=== PATIENT | female | born 1950 | race African-American/Black ===

== ENCOUNTER 2017-01-05 16:27 | Inpatient (IN) | payer OTHER ==
--- NOTE | 2017-01-05 17:15 | PDOC ---
History of Present Illness - General History Source: Patient Exam Limitations: No Limitations - History of Present Illness Initial Comments: The patient is a 66 yo F with a past medical history significant for CVA/TIA 3 years ago, DM, HTN, HLD, anemia and constipation who presents from [facility] with bilateral pedal edema as well as abnormal blood work today of 6.6 and 20 HGB and Hematocrit and a sodium of 129. Patient was transferred for possible blood transfusion by Dr. Oswald. As per patients power of dry drug worker Minister Rao, patient cant put her shoes on secondary to pedal edema. As per Information Systems Operator Jalen, patient also suffers from persistent vomiting and patient has been unable to walk for the past 2 years. Information Systems Operator Jalen also endorses decreasing cognitive function. Power of dry drug worker: Airam Rao <Kristina Beltrán - Last Filed: 01/05/17 18:52> <Daria Kate - Last Filed: 01/05/17 20:31> - General Chief Complaint: Revisit, Lab Variance Stated Complaint: HYPOTENSION Time Seen by Provider: 01/05/17 16:37 Past History <Kristina Beltrán - Last Filed: 01/05/17 18:52> - Past Medical History CVA: Yes Dementia: Yes Diabetes: Yes HTN: Yes Psychiatric Problems: Yes (depression) - Immunization History Immunization Up to Date: Yes - Psycho/Social/Smoking Cessation Hx Anxiety: No Suicidal Ideation: No Smoking History: Never smoked Have you smoked in the past 12 months: No Information on smoking cessation initiated: No Hx Alcohol Use: No Drug/Substance Use Hx: No Substance Use Type: None <Daria Kate - Last Filed: 01/05/17 20:31> - Past Medical History Allergies/Adverse Reactions: Allergies Allergy/AdvReac Type Severity Reaction Status Date / Time No Known Allergies Allergy Verified 09/19/15 15:08 Home Medications: Ambulatory Orders Amlodipine Besylate 5 mg PO DAILY 09/20/15 Ergocalciferol (Vitamin D2) [Vitamin D2] 50,000 unit PO WEEKLY 09/20/15 Ferrous Gluconate [Fergon -] 324 mg PO TID 09/20/15 [place]-3 Fatty Acids [[place]-3] 1,000 mg PO QID 09/20/15 Docusate Sodium [Colace -] 100 mg PO BID #60 capsule 09/22/15 Polyethylene Glycol 3350 [Miralax (For Daily Use) -] 17 gm PO DAILY PRN #1 bottle 09/22/15 Ascorbic Acid [Vitamin C] 500 mg PO DAILY 01/05/17 Atorvastatin Ca [Lipitor] 40 mg PO HS 01/05/17 Lisinopril [Zestril] 20 mg PO DAILY 01/05/17 Metformin HCl 500 mg PO BID 01/05/17 Mirtazapine [Remeron -] 15 mg PO HS 01/05/17 Review of Systems - Review of Systems Able to Perform ROS?: Yes Comments:: CONSTITUTIONAL: Absent: fever, chills, diaphoresis, generalized weakness, malaise, loss of appetite HEENT: Absent: rhinorrhea, nasal congestion, throat pain, throat swelling, difficulty swallowing, mouth swelling, ear pain, eye pain, visual Changes CARDIOVASCULAR: Absent: chest pain, syncope, palpitations, irregular heart rate, lightheadedness , peripheral edema RESPIRATORY: Absent: cough, shortness of breath, dyspnea with exertion, orthopnea, wheezing, stridor, hemoptysis GASTROINTESTINAL: +chronic Hx of vomiting Absent: abdominal pain, abdominal distension, diarrhea, constipation, melena, hematochezia GENITOURINARY: Absent: dysuria, frequency, urgency, hesitancy, hematuria, flank pain, genital pain MUSCULOSKELETAL: +bilateral pedal edema Absent: myalgia, arthralgia SKIN: Absent: rash, itching, pallor NEUROLOGIC: Absent: headache, focal weakness or paresthesia, dizziness, unsteady gait, seizure, mental status changes, bladder or bowel incontinence PSYCHIATRIC: Absent: anxiety, depression, suicidal or homicidal ideation, hallucinations <DougKristina cui - Last Filed: 01/05/17 18:52> *Physical Exam - Vital Signs Last Vital Signs Temp Pulse Resp BP Pulse Ox 97.3 F L 67 18 106/65 100 01/05/17 16:33 01/05/17 16:33 01/05/17 16:33 01/05/17 16:33 01/05/17 16:33 - Physical Exam Comments: GENERAL: Well developed, well nourished. Awake and alert. No acute distress. HEENT: Normocephalic, atraumatic. PERRLA, EOMI. No conjunctival pallor. icteric sclera. Moist mucous membranes. Oropharynx is clear. NECK: Supple. Full ROM. + JVD. Carotid pulses 2+ and symmetric, without bruits. No thyromegaly. No lymphadenopathy. CARDIOVASCULAR: Regular rate and rhythm. No murmurs, rubs, or gallops. Distal pulses are 2+ and symmetric. PULMONARY: No evidence of respiratory distress. Lungs clear to auscultation bilaterally. No wheezing, rales or rhonchi. ABDOMINAL: Soft. Non-tender. Slightly distended. No rebound or guarding. No organomegaly. Normoactive bowel sounds. MUSCULOSKELETAL Normal range of motion at all joints. No bony deformities or tenderness. No CVA tenderness. EXTREMITIES: No cyanosis. No clubbing. Bilateral pedal edema. No calf tenderness. SKIN: Warm and dry. Normal capillary refill. No rashes. No jaundice. NEUROLOGICAL: No gross focal neurological deficits. PSYCHIATRIC: Cooperative. Good eye contact. Appropriate mood and affect <Kristina Beltrán - Last Filed: 01/05/17 18:52> - Vital Signs Last Vital Signs Temp Pulse Resp BP Pulse Ox 97.3 F L 67 18 106/65 100 01/05/17 16:33 01/05/17 16:33 01/05/17 16:33 01/05/17 16:33 01/05/17 16:33 <Daria Kate - Last Filed: 01/05/17 20:31> Heart Score/ECG Review - [place] Comment: ECG: Alert and conversing but a poor historian. sinus rhythm w 1st degree AV block @ 68 bpm. Cannot rule out anterior infarct, age undetermined. MA interval 222 <Kristina Beltrán - Last Filed: 01/05/17 18:52> - History History: Slightly suspicious - Electrocardiogram EKG: Non specific repolarization disturbance - Age Age: >/= 65 - Risk Factors Based on the list above the patient has:: 1-2 risk factors - Troponin Troponin: </= normal limit - Score Heart Score - Total: 4 <Daria Kate - Last Filed: 01/05/17 20:31> ED Treatment Course - LABORATORY CBC & Chemistry Diagram: 01/05/17 17:32 01/05/17 17:32 <Kristina Beltrán - Last Filed: 01/05/17 18:52> - LABORATORY CBC & Chemistry Diagram: 01/05/17 17:32 01/05/17 17:32 <Daria Kate - Last Filed: 01/05/17 20:31> Medical Decision Making - Medical Decision Making Paged Dr. Mackey @ 18:47. Awaiting call back. Dr. Mackey called back @ 18:53 and case was discussed. <Kristina Beltrán - Last Filed: 01/05/17 18:52> *DC/Admit/Observation/Transfer - Attestations Scribe Attestion: Documentation prepared by Kristina Beltrán, acting as biomedical engineer for Daria Kate MD/DO. <Kristina Beltrán - Last Filed: 01/05/17 18:52> - Discharge Dispostion Admit: Yes <Daria Kate - Last Filed: 01/05/17 20:31> Diagnosis at time of Disposition: Anemia Qualifiers: Anemia type: other cause Other causes of anemia: other cause, not classified Qualified Code(s): D64.89 - Other specified anemias GI bleed Qualifiers: GI bleed type/associated pathology: unspecified gastrointestinal hemorrhage type Qualified Code(s): K92.2 - Gastrointestinal hemorrhage, unspecified
[2017-01-05 17:50] LABS: BASOPHIL 0.3 % (0-2.0); EOSINOPHIL 3.3 % (0-4.5); MCH 25.5 pg (25.7-33.7); MCHC 32.6 g/dl (32.0-36.0); MEAN CELL VOLUME 78.1 fl (80-96); MEAN PLT VOLUME 7.8 fl (7.5-11.1); NEUTROPHILS 70.3 % (42.8-82.8); PLATELET COUNT 259 K/MM3 (134-434); RDW 19.3 % (11.6-15.6); WHITE BLOOD COUNT 5.1 K/mm3 (4.0-10.0)
[2017-01-05 18:05] LABS: INR 1.21 (0.82-1.09); PROTHROMBIN TIME (PATIENT) 13.4 SEC (9.98-11.88)
[2017-01-05 18:19] LABS: FERRITIN 13.147 ng/ml (6.9-282.5); TROPONIN I < 0.02 ng/ml (0.00-0.05)
[2017-01-05 18:28] LABS: ALBUMIN 3.1 g/dl (3.4-5.0); ALK PHOS 65 U/L (45-117); ANION GAP 11 (8-16); BILIRUBIN,TOTAL 0.3 mg/dL (0.2-1.0); CALCIUM 8.9 mg/dL (8.5-10.1); CO2 24 mmol/L (21-32); CREATININE 0.6 mg/dL (0.55-1.02); GLUCOSE,RANDOM 78 mg/dL (74-106); SGOT/AST 20 U/L (15-37); SGPT/ALT 19 U/L (12-78); TOT PROT 6.3 g/dl (6.4-8.2)
[2017-01-05] MEDS ORDERED: PANTOPRAZOLE SODIUM 40 MG in SODIUM CHLORIDE 100 ML IVPB ONE (19:15)
[2017-01-05] MEDS ORDERED: PANTOPRAZOLE SODIUM 40 MG VIAL ONE (20:57)
[2017-01-05] MEDS ORDERED: ACETAMINOPHEN 325 MG TABLET (FP) PO PRN (22:39)
[2017-01-05] MEDS ORDERED: FUROSEMIDE 40 MG/4 ML INJECTABLE VIAL IVPB ONE (22:39)
[2017-01-06 01:04] VITALS: BMI 23.2
[2017-01-06 03:16] LABS: FERRITIN 13.393 ng/ml (6.9-282.5)
[2017-01-06] MEDS: INSULIN SLIDING SCALE (NOVOLOG) 1 VIAL SQ SCH ×4 (06:47→22:03)
[2017-01-06] MEDS ORDERED: INSULIN (NOVOLOG) ASPART 100 UNITS/ML 10ML VIAL ONE (06:49)
[2017-01-06] MEDS ORDERED: PT OWN MED DRAWER 7, Y5N ONE (06:49)
--- NOTE | 2017-01-06 08:14 | HP ---
Admitting History and Physical - Admission History of Present Illness: 6 yo F with a past medical history significant for CVA/TIA 3 years ago, DM, HTN , HLD, anemia and constipation who presents from [facility] with bilateral pedal edema as well as abnormal blood work today of 6.6 and 20 HGB and Hematocrit and a sodium of 129. Patient was transferred for possible blood transfusion by Dr. Oswald. As per patients power of salesperson art objects Food Demonstratoryohan Rao, patient cant put her shoes on secondary to pedal edema. As per Food Demonstrator Jalen , patient also suffers from persistent vomiting and patient has been unable to walk for the past 2 years. Food Demonstrator Jalen also endorses decreasing cognitive function. 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: CVA, TIA Cardiovascular: Yes: HTN, Hyperlipdemia ...: No Endocrine: Yes: Diabetes Mellitus - Past Surgical History Past Surgical History: Yes: None - Advance Directives Advance Directives: Yes: Health Care Proxy - Smoking History Smoking history: Never smoked Have you smoked in the past 12 months: No - Alcohol/Substance Use Hx Alcohol Use: No History of Substance Use: reports: None - Social History ADL: Independent History of Recent Travel: No Home Medications - Allergies Allergies/Adverse Reactions: Allergies Allergy/AdvReac Type Severity Reaction Status Date / Time No Known Allergies Allergy Verified 09/19/15 15:08 - Home Medications Home Medications: Ambulatory Orders Amlodipine Besylate 5 mg PO DAILY 09/20/15 Ergocalciferol (Vitamin D2) [Vitamin D2] 50,000 unit PO WEEKLY 09/20/15 Ferrous Gluconate [Fergon -] 324 mg PO TID 09/20/15 [place]-3 Fatty Acids [[place]-3] 1,000 mg PO QID 09/20/15 Docusate Sodium [Colace -] 100 mg PO BID #60 capsule 09/22/15 Polyethylene Glycol 3350 [Miralax (For Daily Use) -] 17 gm PO DAILY PRN #1 bottle 09/22/15 Ascorbic Acid [Vitamin C] 500 mg PO DAILY 01/05/17 Atorvastatin Ca [Lipitor] 40 mg PO HS 01/05/17 Lisinopril [Zestril] 20 mg PO DAILY 01/05/17 Metformin HCl 500 mg PO BID 01/05/17 Mirtazapine [Remeron -] 15 mg PO HS 01/05/17 Review of Systems - Review of Systems Constitutional: reports: Weakness Cardiovascular: denies: Chest Pain Respiratory: denies: SOB Gastrointestinal: reports: Vomiting. denies: Abdominal Pain, Constipation, Diarrhea Genitourinary: denies: Burning, Dysuria, Flank Pain Musculoskeletal: reports: Muscle Weakness. denies: Back Pain Neurological: reports: Change in LOC, Incoordination, Unsteady Gait, Weakness Physical Examination Vital Signs: Vital Signs Temperature 98.9 F 01/06/17 06:00 Pulse Rate 56 L 01/06/17 06:00 Respiratory Rate 20 01/06/17 06:00 Blood Pressure 136/65 01/06/17 06:00 O2 Sat by Pulse Oximetry (%) 99 01/05/17 21:00 Cardiovascular: Yes: Murmur, S1, S2 Respiratory: Yes: Regular, CTA Bilaterally. No: Wheezes Gastrointestinal: Yes: Normal Bowel Sounds, Soft. No: Tenderness Renal/: Yes: Bladder Distention (--vs mass--?fibroid) Extremities: Yes: Other (weakness of both le) Edema: Yes Neurological: Yes: Alert, Unsteady Gait, Weakness Problem List - Problems (1) Anemia Assessment/Plan: S/P PRBC MONITOR LABS PPI GI CONSULT Code(s): D64.9 - ANEMIA, UNSPECIFIED Qualifiers: Anemia type: other cause Other causes of anemia: other cause, not classified Qualified Code(s): D64.89 - Other specified anemias (2) GI bleed Assessment/Plan: S/P PRBC MONITOR LABS PPI GI CONSULT Code(s): K92.2 - GASTROINTESTINAL HEMORRHAGE, UNSPECIFIED Qualifiers: GI bleed type/associated pathology: unspecified gastrointestinal hemorrhage type Qualified Code(s): K92.2 - Gastrointestinal hemorrhage, unspecified (3) HTN (hypertension) Assessment/Plan: MONITOR Code(s): I10 - ESSENTIAL (PRIMARY) HYPERTENSION (4) Bradycardia Assessment/Plan: ON TEL MONITOR EKG TSH CARDIO ECHO Code(s): R00.1 - BRADYCARDIA, UNSPECIFIED (5) Change in mental status Assessment/Plan: CT OF HEAD NEURO CONSULT CULTURES AWAIT AM LABS Code(s): R41.82 - ALTERED MENTAL STATUS, UNSPECIFIED (6) Gait abnormality Assessment/Plan: PT EVAL Code(s): R26.9 - UNSPECIFIED ABNORMALITIES OF GAIT AND MOBILITY
[2017-01-06] MEDS ORDERED: amLODIPine BESYLATE 5 MG TABLET (FP) PO SCH (10:00)
[2017-01-06] MEDS ORDERED: FUROSEMIDE 40 MG/4 ML INJECTABLE VIAL IVPB ONE (10:00)
[2017-01-06] MEDS ORDERED: PANTOPRAZOLE SODIUM 80 MG in SODIUM CHLORIDE 100 ML IVPB SCH (10:00)
[2017-01-06 10:31] LABS: BASOPHIL 0.4 % (0-2.0); EOSINOPHIL 3.2 % (0-4.5); MCH 27.5 pg (25.7-33.7); MCHC 33.6 g/dl (32.0-36.0); MEAN CELL VOLUME 82.1 fl (80-96); MEAN PLT VOLUME 7.5 fl (7.5-11.1); NEUTROPHILS 71.5 % (42.8-82.8); PLATELET COUNT 224 K/MM3 (134-434); RDW 18.4 % (11.6-15.6); WHITE BLOOD COUNT 6.2 K/mm3 (4.0-10.0)
[2017-01-06 10:53] LABS: ALBUMIN 3.2 g/dl (3.4-5.0); ANION GAP 11 (8-16); CALCIUM 8.7 mg/dL (8.5-10.1); CO2 25 mmol/L (21-32); CREATININE 0.6 mg/dL (0.55-1.02); GLUCOSE,RANDOM 55 mg/dL (74-106); SGOT/AST 20 U/L (15-37); SGPT/ALT 19 U/L (12-78); TOT PROT 6.7 g/dl (6.4-8.2)
[2017-01-06 11:02] LABS: ALK PHOS 67 U/L (45-117); THYROID STIMULATING HORMONE 1.09 uIU/ml (0.358-3.74); TROPONIN I < 0.02 ng/ml (0.00-0.05)
--- NOTE | 2017-01-06 11:55 | CON.NEURO ---
Consult - History of Present Illness History of Present Illness: 66 yo F with a past medical history significant for CVA/TIA 3 years ago, DM, HTN , HLD, anemia and constipation who presents from [facility] with bilateral pedal edema as well as anemia, 6.6 and 20 HGB and Hematocrit and a sodium of 129. found to have BL DVT . pt poor HX , slurred speech and feels weakness R side x 5 days. unknown prior deficits from her prior stroke. 01/06/17 Status: [place] [address] Unit Number: [id number] EXAM#: TYPE/EXAM: RESULT: [id number] CT/HEAD CT WITHOUT CONTRAST CT scan of the brain c-. Change in mental status. Comparison study September 19, 2015. Findings. Serial axial images of the brain were obtained from foramen magnum to the cranial vertex without intravenous contrast. The study was supplemented with computer-generated coronal and sagittal reconstruction images. [place] image was reviewed. There is no evidence of acute subarachnoid hemorrhage, acute intra-axial or extra-axial fluid collection consistent with subdural or epidural hematoma. No mass effect, midline shift, acute territorial ischemic changes, herniation or edema is present. Normal coon matter white matter differentiation. Generalized loss of volume of the brain parenchyma. The CSF spaces unchanged from prior study. No hydrocephalus is seen. Intracranial vascular calcifications are noted. Empty sella turcica. Examination of the bone windows show no fracture. The visualized paranasal sinuses and mastoid air cells are clear. Symmetrical ocular globes. Unremarkable retro-orbital soft tissues. Impression. No evidence of acute intracranial hemorrhage, edema, midline shift, mass effect, or skull fracture. No CT evidence of acute territorial infarction. 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 Cardio/Vascular: Yes: HTN, Hyperlipdemia ...: No Endocrine: Yes: Diabetes Mellitus - Past Surgical History Past Surgical History: Yes: None - Alcohol/Substance Use Hx Alcohol Use: No History of Substance Use: reports: None - Smoking History Smoking history: Never smoked Have you smoked in the past 12 months: No - Social History ADL: Independent History of Recent Travel: No Home Medications - Allergies Allergies/Adverse Reactions: Allergies Allergy/AdvReac Type Severity Reaction Status Date / Time No Known Allergies Allergy Verified 09/19/15 15:08 - Home Medications Home Medications: Ambulatory Orders Amlodipine Besylate 5 mg PO DAILY 09/20/15 Ergocalciferol (Vitamin D2) [Vitamin D2] 50,000 unit PO WEEKLY 09/20/15 Ferrous Gluconate [Fergon -] 324 mg PO TID 09/20/15 [place]-3 Fatty Acids [[place]-3] 1,000 mg PO QID 09/20/15 Docusate Sodium [Colace -] 100 mg PO BID #60 capsule 09/22/15 Polyethylene Glycol 3350 [Miralax (For Daily Use) -] 17 gm PO DAILY PRN #1 bottle 09/22/15 Ascorbic Acid [Vitamin C] 500 mg PO DAILY 01/05/17 Atorvastatin Ca [Lipitor] 40 mg PO HS 01/05/17 Lisinopril [Zestril] 20 mg PO DAILY 01/05/17 Metformin HCl 500 mg PO BID 01/05/17 Mirtazapine [Remeron -] 15 mg PO HS 01/05/17 Physical Exam-Neuro Vital Signs: Vital Signs Temperature 95.9 F L 01/06/17 08:07 Pulse Rate 56 L 01/06/17 09:44 Respiratory Rate 18 01/06/17 09:44 Blood Pressure 122/2 01/06/17 09:44 O2 Sat by Pulse Oximetry (%) 100 01/06/17 09:00 Constitutional: Yes: Pallor Edema: LLE: 2+, RLE: 2+ Labs: CBC, BMP 01/06/17 09:48 01/06/17 09:48 INR, PTT INR 1.21 (0.82-1.09) H 01/05/17 17:32 - Neuro Exam Level Of Consciousness: Yes: Alert (awake, though slow to respond, EOMI, slight R facial , dysarthric, no clear aphasia, weakness RUE-with limited effeort, weakness in LE, barely able to raise legs, distally L 5/5 and R 4/5 TA , reflexes inc on R, giait not tested; ) NIH Stroke Scale - Total Score NIH Stroke Scale Score: 0 Imaging - Results Cat Scan: Report Reviewed, Image Reviewed Assessment/Plan 66 yo F with a past medical history significant for CVA/TIA 3 years ago, DM, HTN , HLD, anemia and constipation who presents from [facility] with bilateral pedal edema as well as anemia, 6.6 and 20 HGB and Hematocrit and a sodium of 129. found to have BL DVT . pt poor HX , slurred speech and feels weakness R side x 5 days. unknown prior deficits from her prior stroke. r/o new stroke event ( left subcortical) check MRI BRAIN DVT- low platelets, ? if candidate for AC ; Dr Laird [phone]
[2017-01-06] MEDS: D5-1/2NS+20 MEQ KCL - 1,000 ML IV SCH (13:49)
--- NOTE | 2017-01-06 13:56 | CON.CARD ---
Consult Consult Specialty:: cardiology Referred by:: Key Reason for Consultation:: Bradycardia and leg edema - History of Present Illness Chief Complaint: Leg edema History of Present Illness: The patient is a 66-year-old female, retirement resident, nonambulatory, history of diabetes, hypertension, hyperlipidemia, stroke, now presenting with nausea and vomiting, marked anemia, and leg edema. The patient is status post blood transfusions. She is currently comfortable and symptom free. GI consultation is pending. 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 Cardio/Vascular: Yes: Deep Vein Thrombosis, HTN, Hyperlipdemia ...: No Heme/Onc: Yes: Anemia Endocrine: Yes: Diabetes Mellitus - Past Surgical History Past Surgical History: Yes: None - Alcohol/Substance Use Hx Alcohol Use: No History of Substance Use: reports: None - Smoking History Smoking history: Never smoked Have you smoked in the past 12 months: No - Social History ADL: Independent History of Recent Travel: No Home Medications - Allergies Allergies/Adverse Reactions: Allergies Allergy/AdvReac Type Severity Reaction Status Date / Time No Known Allergies Allergy Verified 09/19/15 15:08 - Home Medications Home Medications: Ambulatory Orders Amlodipine Besylate 5 mg PO DAILY 09/20/15 Ergocalciferol (Vitamin D2) [Vitamin D2] 50,000 unit PO WEEKLY 09/20/15 Ferrous Gluconate [Fergon -] 324 mg PO TID 09/20/15 [place]-3 Fatty Acids [[place]-3] 1,000 mg PO QID 09/20/15 Docusate Sodium [Colace -] 100 mg PO BID #60 capsule 09/22/15 Polyethylene Glycol 3350 [Miralax (For Daily Use) -] 17 gm PO DAILY PRN #1 bottle 09/22/15 Ascorbic Acid [Vitamin C] 500 mg PO DAILY 01/05/17 Atorvastatin Ca [Lipitor] 40 mg PO HS 01/05/17 Lisinopril [Zestril] 20 mg PO DAILY 01/05/17 Metformin HCl 500 mg PO BID 01/05/17 Mirtazapine [Remeron -] 15 mg PO HS 01/05/17 Review of Systems - Review of Systems Constitutional: reports: Malaise Eyes: reports: No Symptoms HENT: reports: No Symptoms Neck: reports: No Symptoms Cardiovascular: reports: No Symptoms, Edema Respiratory: reports: No Symptoms Gastrointestinal: reports: Vomiting Genitourinary: reports: No Symptoms Breasts: reports: No Symptoms Reported Musculoskeletal: reports: No Symptoms Integumentary: reports: No Symptoms Neurological: reports: No Symptoms Endocrine: reports: No Symptoms Hematology/Lymphatic: reports: No Symptoms Psychiatric: reports: No Symptoms - Risk Factors Known Risk Factors: Yes: Diabetes Mellitus, Hypercholesterolemia, Hypertension Vital Signs: Vital Signs Temperature 95.0 F L 01/06/17 13:15 Pulse Rate 73 01/06/17 13:15 Respiratory Rate 18 01/06/17 13:15 Blood Pressure 138/79 01/06/17 13:15 O2 Sat by Pulse Oximetry (%) 100 01/06/17 09:00 Constitutional: Yes: Well Nourished, No Distress Eyes: Yes: WNL HENT: Yes: WNL Neck: Yes: WNL Respiratory: Yes: WNL Gastrointestinal: Yes: WNL Renal/: Yes: WNL Cardiovascular: Yes: Regular Rate and Rhythm, Bradycardia JVD: No Carotid Bruit: No PMI: Non-Displaced Heart Sounds: Yes: S1, S2 Murmur: Yes: Systolic Murmur, Grade 2 Musculoskeletal: Yes: WNL Extremities: Yes: Other (Bilateral lower extremity edema) Edema: Yes (bilateral lower extremity) Edema: LLE: 1+, RLE: 1+ Peripheral Pulses WNL: Yes Integumentary: Yes: WNL Neurological: Yes: Alert, Weakness Psychiatric: Yes: WNL - Other Data Labs, Other Data: CBC, BMP 01/06/17 09:48 01/06/17 09:48 INR, PTT INR 1.21 (0.82-1.09) H 01/05/17 17:32 Troponin, BNP 01/06/17 09:48 Troponin I < 0.02 Troponin, BNP 01/06/17 09:48 Troponin I < 0.02 Assessment/Plan 66-year-old female, retirement resident, nonambulatory, history of diabetes, hypertension, hyperlipidemia, stroke, admitted with marked anemia, leg edema, nausea and vomiting. Noted to be bradycardic. The patient is currently status post packed RBCs. She is comfortable in bed. Denied chest pains and shortness of breath. Telemetry showing sinus bradycardia with a prolonged AL interval. No clinically important arrhythmias noted. There is no evidence of ischemia nor acute coronary syndrome. Lower extremity Dopplers revealed bilateral DVTs. GI workup for anemia is pending. If anticoagulation is contraindicated, would consider an IVC filter. There is no need for further cardiac workup nor testing in this setting. The patient is stable and quite comfortable. Please call us PRN.
[2017-01-06] MEDS ORDERED: ACETAMINOPHEN 325 MG TABLET (FP) PO PRN (14:21)
[2017-01-06] MEDS ORDERED: PNEUMOC 13-VAL CONJ-DIP CRM/PF 0.5 ML DISP.SYRIN IM ONE (14:41)
--- NOTE | 2017-01-06 15:08 | PN ---
Progress Note (short form) - Note Progress Note: ID consult dictated imp/reccd 66 year old female admitted with anemia s/p transfusion she is alert but hypothermic she has been [facility] for the last 2 years per patient nonambulatory for 2 years chronic vomiting bilateral pedal edema duplex positive for bilateral DVT now hypothermic hyponatremic requiring warming blanket am cortisol level obtain cultures management of DVT per icu/pmd anemia s/p transfusion ?malignancy Problem List - Problems (1) Hypothermia Code(s): T68.XXXA - HYPOTHERMIA, INITIAL ENCOUNTER (2) Anemia Code(s): D64.9 - ANEMIA, UNSPECIFIED Qualifiers: Anemia type: other cause Other causes of anemia: other cause, not classified Qualified Code(s): D64.89 - Other specified anemias (3) DVT (deep venous thrombosis) Code(s): I82.409 - ACUTE EMBOLISM AND THOMBOS UNSP DEEP VN UNSP LOWER EXTREMITY
--- NOTE | 2017-01-06 15:26 | CONSULT ---
Consultation: REQUESTING PROVIDER: Dr. Mackey CONSULT REQUEST: We have been asked to medically evaluate this patient for hypothermia. HISTORY OF PRESENT ILLNESS: 66 yr old woman [facility] for abnormal lab work (low h/h 6.6/20, Na 129) and LE edema. She has been having non-bloody emesis for the past several weeks, says it happens after every meal, several times weak. has not noticed any weight loss or reflux symptoms prior to emesis. She says she has had the edema for several weeks, has been unable to ambulate for several weeks. Also c/o dry cough and constipation for the past week. denies fevers, chest pain, palpitations, abdominal pain, hematochezia, melena. 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 REVIEW OF SYSTEMS: CONSTITUTIONAL: Absent: fever, chills, diaphoresis, generalized weakness, malaise, loss of appetite, weight change HEENT: Absent: rhinorrhea, nasal congestion, throat pain, throat swelling, difficulty swallowing, mouth swelling, ear pain, eye pain, visual changes CARDIOVASCULAR: Present: peripheral edema Absent: chest pain, syncope, palpitations, irregular heart rate, lightheadedness RESPIRATORY: Present: cough Absent: shortness of breath, dyspnea with exertion, orthopnea, wheezing, stridor , hemoptysis GASTROINTESTINAL: Present:constipation, Absent: abdominal pain, abdominal distension, nausea, vomiting, diarrhea, melena , hematochezia GENITOURINARY: Absent: dysuria, frequency, urgency, hesitancy, hematuria, flank pain, genital pain MUSCULOSKELETAL: Absent: myalgia, arthralgia, joint swelling, back pain, neck pain ENDOCRINE: Present: cold intolerance Absent: unexplained weight gain, unexplained weight loss, heat intolerance NEUROLOGIC: Absent: headache, dizziness, PHYSICAL EXAMINATION Vital Signs - 24 hr 01/05/17 01/05/17 01/06/17 20:43 21:00 02:39 Temperature 98.3 F 97.7 F 99.0 F Pulse Rate 64 54 L Pulse Rate [ 65 Left] Respiratory 17 18 20 Rate Blood Pressure 104/62 132/69 Blood Pressure 122/87 [Left Arm] O2 Sat by Pulse 99 99 Oximetry (%) 01/06/17 01/06/17 01/06/17 06:00 07:30 08:07 Temperature 98.9 F 95.9 F L Pulse Rate 56 L 41 L 52 L Pulse Rate [ Left] Respiratory 20 18 Rate Blood Pressure 136/65 127/52 Blood Pressure [Left Arm] O2 Sat by Pulse Oximetry (%) 01/06/17 01/06/17 01/06/17 09:00 09:44 13:15 Temperature 95.0 F L Pulse Rate 56 L 73 Pulse Rate [ Left] Respiratory 20 18 18 Rate Blood Pressure 122/72 138/79 Blood Pressure [Left Arm] O2 Sat by Pulse 100 Oximetry (%) GENERAL: Awake, alert, and oriented to person/place/year/month not date or president(wilkins), in no acute distress. HEAD: Normal with no signs of trauma. bitemporal wasting EYES: Pupils constricted, reactive to light, extraocular movements intact, sclera anicteric, conjunctiva clear. EARS, NOSE, THROAT: oropharynx clear without exudates. dry mucous membranes. NECK: supple without lymphadenopathy, JVD, or masses. LUNGS: Breath sounds equal, clear to auscultation bilaterally. No wheezes, and no crackles. No accessory muscle use. HEART: sinus rhythm, bradycardia normal S1 and S2 without murmur ABDOMEN: Soft, nontender, not distended, normoactive bowel sounds, no guarding UPPER EXTREMITIES: 1+ radial pulses, cool, well-perfused. No cyanosis. No clubbing. LOWER EXTREMITIES: weak dp pulses,cool, well-perfused. No calf tenderness. nonpitting edema b/l ankles NEUROLOGICAL: Cranial nerves II-XII intact. slow slurred speech but easily understood, facial symmetry. 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 says that she can't move her lower legs, unable to maintained extension when passively lifted, flaccid b/l le. PSYCHIATRIC: Cooperative. Good eye contact. Appropriate mood and affect. Laboratory Results - last 24 hr 01/06/17 01/06/17 01/06/17 05:47 09:48 09:48 WBC 6.2 RBC 3.73 D Hgb 10.3 L D Hct 30.6 L D MCV 82.1 MCHC 33.6 RDW 18.4 H Plt Count 224 MPV 7.5 Neutrophils % 71.5 Lymphocytes % 19.0 Monocytes % 5.9 Eosinophils % 3.2 Basophils % 0.4 Sodium 131 L Potassium 4.1 Chloride 95 L Carbon Dioxide 25 Anion Gap 11 BUN 12 D Creatinine 0.6 Creat Clearance w eGFR > 60 POC Glucometer 83 Random Glucose 55 L D Lactic Acid Calcium 8.7 Total Bilirubin 1.0 D AST 20 ALT 19 Alkaline Phosphatase 67 Troponin I < 0.02 Total Protein 6.7 Albumin 3.2 L TSH 1.09 D 01/06/17 01/06/17 09:48 09:48 WBC RBC Hgb Hct MCV MCHC RDW Plt Count MPV Neutrophils % Lymphocytes % Monocytes % Eosinophils % Basophils % Sodium Potassium Chloride Carbon Dioxide Anion Gap BUN Creatinine Creat Clearance w eGFR POC Glucometer Random Glucose Lactic Acid 0.9 Calcium Total Bilirubin AST ALT Alkaline Phosphatase Troponin I Total Protein Albumin TSH Cancelled Active Medications Generic Name Dose Route Start Last Admin Trade Name Freq PRN Reason Stop Dose Admin Acetaminophen 650 mg 01/06/17 14:21 Tylenol - PO Q4H PRN FEVER OR PAIN Amlodipine Besylate 5 mg 01/07/17 10:00 Norvasc - PO DAILY MINAL Atorvastatin Calcium 40 mg 01/06/17 22:00 Lipitor - PO HS MINAL Potassium Chloride/Dextrose/Sod Cl 1,000 mls @ 100 mls/hr 01/06/17 09:15 13:49 D5-1/2ns+20 Meq Kcl - IV 100 mls/hr ASDIR MINAL Administration Pantoprazole Sodium 80 mg/ 100 mls @ 10 mls/hr 01/06/17 19:15 Sodium Chloride IVPB Q10H MINAL 8 MG/HR Insulin Aspart 1 vial 01/06/17 16:30 Novolog Vial Sliding Scale - SQ ACHS MINAL Protocol Mirtazapine 15 mg 01/06/17 22:00 Remeron - PO HS MINAL Pneumococcal 13-Valent Conj Vacc 0.5 ml 01/06/17 14:41 Prevnar 13 Syringe - IM 01/06/17 14:42 .ONCE ONE ASSESSMENT/PLAN: 66 yr old woman with hx of CVA, NIDDM, HTN, anemia, constipation referred from [facility] for b/l lower extremity edema, anemia and hyponatremia, transferred to the ICU for hypothermia. GI suspicious for GI bleed, (FOBT +, drop in h/h), for endoscopy tomorrow to r/o ugi bleed since patient has not had any hematochezia or BM NPO and protonix drip repeat labs to trend h/h D5-1/2NS+20meq K IVF @100 consult: dr. pierce Hematological b/l le DVT's - defer heparin drip until acute bleeding r/o on endoscopy iron studies to evaluated normocytic anemia Dr. Andrew and dr. pineda consulted for IVC filter Infectious Disease hypothermia - unclear source of cause, r/o infectious, blood and urine cx sent monitor off abx for now Neurological head ct and mri without acute pathology, unclear baseline, will verify with family pt's baseline no focal neurological deficits consult: dr. indu RIZO taylor placed for urinary retention Renal hyponatremia - unclear etiology, no urine studies prior to IVF, improved on repeat labs Musculoskeletal physiatry evaluation for immobility, likely due to deconditioning Endocrine NIDDM monitor BGM while on d5, no NISS while npo Cardiovascular HTN amlodipine po sinus bradycardia hr 45-55, likely due to patient's inactivity in bed or low h/h , will monitor closely Dispo: We will continue to follow the patient. Thank you for this consultative opportunity. Visit type - Emergency Visit Emergency Visit: No - New Patient This patient is new to me today: Yes Date on this admission: 01/07/17 - Critical Care Critical Care patient: Yes Total Critical Care Time (in minutes): 35 Critical Care Statement: The care of this patient involved high complexity decision making to prevent further life threatening deterioration of the patient 's condition and/or to evalute & treat vital organ system(s) failure or risk of failure.
[2017-01-06 15:33] LABS: URINE APPEARANCE CLEAR; URINE BILIRUBIN NEGATIVE (NEGATIVE); URINE BLOOD NEGATIVE (NEGATIVE); URINE COLOR YELLOW; URINE GLUCOSE (UA) NEGATIVE (NEGATIVE); URINE KETONE NEGATIVE (NEGATIVE); URINE LEUK ESTERASE NEGATIVE (NEGATIVE); URINE NITRITE NEGATIVE (NEGATIVE); URINE PROTEIN NEGATIVE (NEGATIVE); URINE UROBILINOGEN NEGATIVE E.U./dl (0.2-1.0)
--- NOTE | 2017-01-06 18:15 | CONSULT ---
Consult - text type - Consultation Consultation Note: 66 yo F with a past medical history significant for CVA/TIA 3 years ago, DM, HTN , HLD, anemia and constipation who presents from [facility] with bilateral pedal edema as well as anemia, 6.6 and 20 HGB and Hematocrit and a sodium of 129. found to have BL DVT . pt poor HX , slurred speech and feels weakness R side x 5 days. unknown prior deficits from her prior stroke. 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 Cardio/Vascular: Yes: HTN, Hyperlipdemia Endocrine: Yes: Diabetes Mellitus - Past Surgical History Past Surgical History: Yes: None - Smoking History Smoking history: Never smoked - Social History ADL: Independent Home Medications - Allergies Allergies/Adverse Reactions: Allergies Allergy/AdvReac Type Severity Reaction Status Date / Time No Known Allergies Allergy Verified 09/19/15 15:08 - Home Medications Home Medications: Ambulatory Orders Amlodipine Besylate 5 mg PO DAILY 09/20/15 Ergocalciferol (Vitamin D2) [Vitamin D2] 50,000 unit PO WEEKLY 09/20/15 Ferrous Gluconate [Fergon -] 324 mg PO TID 09/20/15 Bim-3 Fatty Acids [Bim-3] 1,000 mg PO QID 09/20/15 Docusate Sodium [Colace -] 100 mg PO BID #60 capsule 09/22/15 Polyethylene Glycol 3350 [Miralax (For Daily Use) -] 17 gm PO DAILY PRN #1 bottle 09/22/15 Ascorbic Acid [Vitamin C] 500 mg PO DAILY 01/05/17 Atorvastatin Ca [Lipitor] 40 mg PO HS 01/05/17 Lisinopril [Zestril] 20 mg PO DAILY 01/05/17 Metformin HCl 500 mg PO BID 01/05/17 Mirtazapine [Remeron -] 15 mg PO HS 01/05/17 Home Medication List Medication Instructions Recorded Confirmed Type Amlodipine Besylate 5 mg PO DAILY 09/20/15 01/05/17 History Ergocalciferol (Vitamin D2) 50,000 unit PO WEEKLY 09/20/15 01/05/17 History [Vitamin D2] Ferrous Gluconate [Fergon -] 324 mg PO TID 09/20/15 01/05/17 History Bim-3 Fatty Acids [Bim-3] 1,000 mg PO QID 09/20/15 01/05/17 History Ascorbic Acid [Vitamin C] 500 mg PO DAILY 01/05/17 01/05/17 History Atorvastatin Ca [Lipitor] 40 mg PO HS 01/05/17 01/05/17 History Lisinopril [Zestril] 20 mg PO DAILY 01/05/17 01/05/17 History Metformin HCl 500 mg PO BID 01/05/17 01/05/17 History Mirtazapine [Remeron -] 15 mg PO HS 01/05/17 01/05/17 History Active Medications Generic Name Dose Route Start Last Admin Trade Name Freq PRN Reason Stop Dose Admin Acetaminophen 650 mg 01/06/17 14:21 Tylenol - PO Q4H PRN FEVER OR PAIN Amlodipine Besylate 5 mg 01/07/17 10:00 Norvasc - PO DAILY MINAL Atorvastatin Calcium 40 mg 01/06/17 22:00 Lipitor - PO HS [facility] Potassium Chloride/Dextrose/Sod Cl 1,000 mls @ 100 mls/hr 01/06/17 09:15 13:49 D5-1/2ns+20 Meq Kcl - IV 100 mls/hr ASDIR MINAL Administration Pantoprazole Sodium 80 mg/ 100 mls @ 10 mls/hr 01/06/17 19:15 Sodium Chloride IVPB Q10H MINAL 8 MG/HR Insulin Aspart 1 vial 01/06/17 16:30 01/06/17 17:18 Novolog Vial Sliding Scale - SQ Not Given ACHS [facility] Protocol Mirtazapine 15 mg 01/06/17 22:00 Remeron - PO HS MINAL Pneumococcal 13-Valent Conj Vacc 0.5 ml 01/06/17 14:41 Prevnar 13 Syringe - IM 01/06/17 14:42 .ONCE ONE Physical Exam-Neuro Last Vital Signs Temp Pulse Resp BP Pulse Ox 96.8 F L 58 L 12 104/63 100 01/06/17 18:00 01/06/17 18:00 01/06/17 18:00 01/06/17 18:00 01/06/17 15:00 Cor: RSR, No murmurs, No gallops Lungs: Clear to P&A Abd: Soft, Normal bowel sounds, No organomegaly Ext: 2+ edema b/l Assessment/Plan 66 yo F with a past medical history significant for CVA/TIA 3 years ago, DM, HTN , HLD, anemia and constipation who presents from [facility] with bilateral pedal edema as well as anemia, 6.6 and 20 HGB and Hematocrit and a sodium of 129. found to have B/L DVT . Seems like a chronic GI bleed No active bleeding would monitor CBC and check baseline coags IF cbc stable would consider heparin drip without bolus monitor cbc/coags f/u GI consult
--- NOTE | 2017-01-06 18:38 | PN ---
Progress Note, Physician Chief Complaint: ANEMIA BLLE DVT - Current Medication List Current Medications: Active Medications Acetaminophen (Tylenol -) 650 mg PO Q4H PRN PRN Reason: FEVER OR PAIN Amlodipine Besylate (Norvasc -) 5 mg PO DAILY MINAL Atorvastatin Calcium (Lipitor -) 40 mg PO HS MINAL Potassium Chloride/Dextrose/Sod Cl (D5-1/2ns+20 Meq Kcl -) 1,000 mls @ 100 mls/ hr IV ASDIR MINAL Last Admin: 01/06/17 13:49 Dose: 100 mls/hr Pantoprazole Sodium 80 mg/ (Sodium Chloride) 100 mls @ 10 mls/hr IVPB Q10H MINAL PRN Reason: 8 MG/HR Insulin Aspart (Novolog Vial Sliding Scale -) 1 vial SQ ACHS MINAL PRN Reason: Protocol Last Admin: 01/06/17 17:18 Dose: Not Given Mirtazapine (Remeron -) 15 mg PO HS MINAL Pneumococcal 13-Valent Conj Vacc (Prevnar 13 Syringe -) 0.5 ml IM .ONCE ONE Stop: 01/06/17 14:42 - Objective Vital Signs: Vital Signs Temperature 96.8 F L 01/06/17 18:00 Pulse Rate 58 L 01/06/17 18:00 Respiratory Rate 12 01/06/17 18:00 Blood Pressure 104/63 01/06/17 18:00 O2 Sat by Pulse Oximetry (%) 100 01/06/17 15:00 Constitutional: Yes: Well Nourished, No Distress, Calm Cardiovascular: Yes: Regular Rate and Rhythm Respiratory: Yes: Regular Gastrointestinal: Yes: Normal Bowel Sounds Labs: CBC, BMP 01/06/17 09:48 01/06/17 09:48 INR, PTT INR 1.21 (0.82-1.09) H 01/05/17 17:32 Problem List - Problems (1) Anemia Assessment/Plan: STOOL GUAIAC POSITIVE, LIKELY SOURCE RECEIVED 2 UNITS OF PRBC GI CONSULT PENDING Laboratory Tests 01/05/17 01/05/17 01/05/17 17:00 17:32 17:32 WBC 5.1 RBC 2.37 L D Hgb 6.0 L* D Hct 18.5 L D MCV 78.1 L MCHC 32.6 RDW 19.3 H D Plt Count 259 D MPV 7.8 Neutrophils % 70.3 D Lymphocytes % 21.0 D Monocytes % 5.1 Eosinophils % 3.3 Basophils % 0.3 Retic Count 2.96 H INR Sodium Potassium Chloride Carbon Dioxide Anion Gap BUN Creatinine Creat Clearance w eGFR POC Glucometer Random Glucose Lactic Acid Calcium Ferritin 13.393 13.147 Total Bilirubin AST ALT Alkaline Phosphatase Creatine Kinase 28 Troponin I < 0.02 Total Protein Albumin Vitamin B12 403 TSH Urine Color Urine Appearance Urine pH Ur Specific [place] Urine Protein Urine Glucose (UA) Urine Ketones Urine Blood Urine Nitrite Urine Bilirubin Urine Urobilinogen Ur Leukocyte Esterase Stool Occult Blood Blood Type Antibody Screen Crossmatch Spec Expiration Date 01/05/17 01/05/17 01/05/17 17:32 17:32 17:32 WBC RBC Hgb Hct MCV MCHC RDW Plt Count MPV Neutrophils % Lymphocytes % Monocytes % Eosinophils % Basophils % Retic Count INR 1.21 H Sodium 129 L Potassium 4.0 Chloride 94 L D Carbon Dioxide 24 Anion Gap 11 BUN 16 D Creatinine 0.6 D Creat Clearance w eGFR > 60 POC Glucometer Random Glucose 78 D Lactic Acid Calcium 8.9 Ferritin Total Bilirubin 0.3 AST 20 D ALT 19 Alkaline Phosphatase 65 Creatine Kinase Troponin I Total Protein 6.3 L Albumin 3.1 L Vitamin B12 TSH Urine Color Urine Appearance Urine pH Ur Specific [place] Urine Protein Urine Glucose (UA) Urine Ketones Urine Blood Urine Nitrite Urine Bilirubin Urine Urobilinogen Ur Leukocyte Esterase Stool Occult Blood Blood Type O POSITIVE Antibody Screen Negative Crossmatch See Detail Spec Expiration Date 01/06/17 01/06/17 01/06/17 09:48 09:48 09:48 WBC 6.2 RBC 3.73 D Hgb 10.3 L D Hct 30.6 L D MCV 82.1 MCHC 33.6 RDW 18.4 H Plt Count 224 MPV 7.5 Neutrophils % 71.5 Lymphocytes % 19.0 Monocytes % 5.9 Eosinophils % 3.2 Basophils % 0.4 Retic Count INR Sodium 131 L Potassium 4.1 Chloride 95 L Carbon Dioxide 25 Anion Gap 11 BUN 12 D Creatinine 0.6 Creat Clearance w eGFR > 60 POC Glucometer Random Glucose 55 L D Lactic Acid Calcium 8.7 Ferritin Total Bilirubin 1.0 D AST 20 ALT 19 Alkaline Phosphatase 67 Creatine Kinase Troponin I < 0.02 Total Protein 6.7 Albumin 3.2 L Vitamin B12 TSH 1.09 D Cancelled Urine Color Urine Appearance Urine pH Ur Specific [place] Urine Protein Urine Glucose (UA) Urine Ketones Urine Blood Urine Nitrite Urine Bilirubin Urine Urobilinogen Ur Leukocyte Esterase Stool Occult Blood Blood Type Antibody Screen Crossmatch Spec Expiration Date 01/06/17 01/06/17 01/06/17 09:48 13:20 14:05 WBC RBC Hgb Hct MCV MCHC RDW Plt Count MPV Neutrophils % Lymphocytes % Monocytes % Eosinophils % Basophils % Retic Count INR Sodium Potassium Chloride Carbon Dioxide Anion Gap BUN Creatinine Creat Clearance w eGFR POC Glucometer 65 Random Glucose Lactic Acid 0.9 Calcium Ferritin Total Bilirubin AST ALT Alkaline Phosphatase Creatine Kinase Troponin I Total Protein Albumin Vitamin B12 TSH Urine Color Yellow Urine Appearance Clear Urine pH 5.0 D Ur Specific [place] 1.015 Urine Protein Negative Urine Glucose (UA) Negative Urine Ketones Negative Urine Blood Negative Urine Nitrite Negative Urine Bilirubin Negative Urine Urobilinogen Negative Ur Leukocyte Esterase Negative Stool Occult Blood Blood Type Antibody Screen Crossmatch Spec Expiration Date Code(s): D64.9 - ANEMIA, UNSPECIFIED Qualifiers: Anemia type: other cause Other causes of anemia: other cause, not classified Qualified Code(s): D64.89 - Other specified anemias (2) GI bleed Assessment/Plan: GI CONSULT PENDING ON PROTONIX DRIP Code(s): K92.2 - GASTROINTESTINAL HEMORRHAGE, UNSPECIFIED Qualifiers: GI bleed type/associated pathology: unspecified gastrointestinal hemorrhage type Qualified Code(s): K92.2 - Gastrointestinal hemorrhage, unspecified (3) DVT (deep venous thrombosis) Assessment/Plan: HEMATOLOGY CONSULT VASCULAR CONSULT IR CONSULT FOR EVALUATION OF IVC FILTER? Code(s): I82.409 - ACUTE EMBOLISM AND THOMBOS UNSP DEEP VN UNSP LOWER EXTREMITY Assessment/Plan PROTONIX DRIP GI, HEMATOLOGY, VASCULAR AND IR CONSULT MONITOR H/H IVC FILTER?
[2017-01-06] MEDS: PANTOPRAZOLE SODIUM 80 MG in SODIUM CHLORIDE 100 ML IVPB SCH (20:01)
--- NOTE | 2017-01-06 20:14 | CON.GI ---
Consult Consult Specialty:: GI Reason for Consultation:: GI bleed/anemia - History of Present Illness Chief Complaint: anemia-sent by [place] History of Present Illness: 66 F with h/o CVA x 3 years, DM, HTN, HLD, anemia, sent from [place] for eval of LE edema and anemia. On arrival, she had Hgb of 6 which went to 10 after 2 units PRBC. She is currently in the ICU and HCP is in the room with her. She states the patient has had intractable vomiting which she states occurs daily usually after meals. She states thge patient has lose significant weight over the past few months. 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 Cardio/Vascular: Yes: HTN, Hyperlipdemia ...: No Endocrine: Yes: Diabetes Mellitus - Past Surgical History Past Surgical History: Yes: None - Alcohol/Substance Use Hx Alcohol Use: No History of Substance Use: reports: None - Smoking History Smoking history: Never smoked Have you smoked in the past 12 months: No - Social History ADL: Independent History of Recent Travel: No Home Medications - Allergies Allergies/Adverse Reactions: Allergies Allergy/AdvReac Type Severity Reaction Status Date / Time No Known Allergies Allergy Verified 09/19/15 15:08 - Home Medications Home Medications: Ambulatory Orders Amlodipine Besylate 5 mg PO DAILY 09/20/15 Ergocalciferol (Vitamin D2) [Vitamin D2] 50,000 unit PO WEEKLY 09/20/15 Ferrous Gluconate [Fergon -] 324 mg PO TID 09/20/15 [place]-3 Fatty Acids [[place]-3] 1,000 mg PO QID 09/20/15 Docusate Sodium [Colace -] 100 mg PO BID #60 capsule 09/22/15 Polyethylene Glycol 3350 [Miralax (For Daily Use) -] 17 gm PO DAILY PRN #1 bottle 09/22/15 Ascorbic Acid [Vitamin C] 500 mg PO DAILY 01/05/17 Atorvastatin Ca [Lipitor] 40 mg PO HS 01/05/17 Lisinopril [Zestril] 20 mg PO DAILY 01/05/17 Metformin HCl 500 mg PO BID 01/05/17 Mirtazapine [Remeron -] 15 mg PO HS 01/05/17 Physical Exam-GI Vital Signs: Vital Signs Temperature 96.8 F L 06/28/17 18:00 Pulse Rate 58 L 01/06/17 18:00 Respiratory Rate 12 01/06/17 18:00 Blood Pressure 104/63 01/06/17 18:00 O2 Sat by Pulse Oximetry (%) 100 01/06/17 15:00 Constitutional: Yes: Well Nourished, Calm HENT: Yes: Normocephalic Cardiovascular: Yes: Regular Rate and Rhythm Respiratory: Yes: CTA Bilaterally Gastrointestinal Inspection: Yes: WNL ...Auscultate: Yes: Normoactive Bowel Sounds ...Palpate: Yes: Soft. No: Tenderness ...Percussion: Yes: Dullness Labs: CBC, BMP 01/06/17 09:48 01/06/17 09:48 INR, PTT INR 1.21 (0.82-1.09) H 01/05/17 17:32 Hepatic Panel Total Bilirubin 1.0 mg/dL (0.2-1.0) D 01/06/17 09:48 AST 20 U/L (15-37) 01/06/17 09:48 ALT 19 U/L (12-78) 01/06/17 09:48 Alkaline Phosphatase 67 U/L (45-117) 01/06/17 09:48 Albumin 3.2 g/dl (3.4-5.0) L 01/06/17 09:48 Assessment/Plan Patient guaiac (+) with bilateral DVTs. H/O chronic vomiting, weight loss and guaiac positive stool suggest partial gastric outlet obstruction, poss malignancy. Rec: Heparin drip (Hold at [place]) Follow H&H EGD tomorrow to better evaluate
[2017-01-06] MEDS ORDERED: MIRTAZAPINE 15 MG TABLET (FP) PO SCH (22:00)
[2017-01-06] MEDS ORDERED: ATORVASTATIN CA 40 MG TABLET (FP) PO SCH (22:00)
[2017-01-06 22:02] LABS: BASOPHIL 0.4 % (0-2.0); EOSINOPHIL 2.5 % (0-4.5); MCH 27.5 pg (25.7-33.7); MCHC 33.7 g/dl (32.0-36.0); MEAN CELL VOLUME 81.4 fl (80-96); MEAN PLT VOLUME 7.3 fl (7.5-11.1); NEUTROPHILS 76.2 % (42.8-82.8); PLATELET COUNT 222 K/MM3 (134-434); RDW 18.1 % (11.6-15.6); WHITE BLOOD COUNT 5.9 K/mm3 (4.0-10.0)
[2017-01-06 22:19] LABS: INR 1.15 (0.82-1.09); PROTHROMBIN TIME (PATIENT) 12.7 SEC (9.98-11.88)
[2017-01-06 22:21] LABS: ACTIVATED PTT 36.4 SECONDS (26.9-34.4)
[2017-01-06] MEDS: ATORVASTATIN CA 40 MG TABLET (FP) PO SCH (22:29)
[2017-01-06] MEDS: MIRTAZAPINE 15 MG TABLET (FP) PO SCH (22:29)
--- NOTE | 2017-01-06 22:34 | CONSULT ---
Consult - text type - Consultation Consultation Note: Briefly Ms Lee is a 66 yo F with past medical history notable for CVA/TIA 3 years ago, DM, HTN, HLD, unintentional weight loss, anemia and constipation who presented from [facility] with bilateral pedal edema and incidentally found abnormal blood (h/h 6.6 and 20, Na 129). Admitted to ICU by Dr Guerrier . Was slightly hypothermic but without elevated wbc or fever, ID was consulted, no abx started. Duplex were performed for LE edema which noted bilateral DVT. Plan to start heparin but given anemia and recent vomiting GI consulted. Plan for EGD in am. Cards was consulted for bradycardia but pt normotensive and without associated issues (hyperkalemia, RI, etc) so no intervention recommended. Given slowly worsening mental status and ambulation since admission to [place] CT head, MRI done and Neurology consulted. there was no acute finding. In ICU overnight with plan for EGD to guide anticoagulation plan for DVT (IVC filter vs Ac). During day pt received 2 PRBC with more than appropriate bump to hgb 10. No evidence of active bleeding. 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 Cardio/Vascular HTN,Hyperlipdemia Heme/Onc Anemia Endocrine Diabetes Mellitus Past Surgical History Past Surgical History None Ambulatory Orders Amlodipine Besylate 5 mg PO DAILY 09/20/15 Ergocalciferol (Vitamin D2) [Vitamin D2] 50,000 unit PO WEEKLY 09/20/15 Ferrous Gluconate [Fergon -] 324 mg PO TID 09/20/15 [place]-3 Fatty Acids [[place]-3] 1,000 mg PO QID 09/20/15 Docusate Sodium [Colace -] 100 mg PO BID #60 capsule 09/22/15 Polyethylene Glycol 3350 [Miralax (For Daily Use) -] 17 gm PO DAILY PRN #1 bottle 09/22/15 Ascorbic Acid [Vitamin C] 500 mg PO DAILY 01/05/17 Atorvastatin Ca [Lipitor] 40 mg PO HS 01/05/17 Lisinopril [Zestril] 20 mg PO DAILY 01/05/17 Metformin HCl 500 mg PO BID 01/05/17 Mirtazapine [Remeron -] 15 mg PO HS 01/05/17 Social History Smoking history UNK Have you smoked in the past 12 No months Hx Alcohol Use No History of Substance Use None Usual Living Arrangement halfway ADL [facility] PE: GENERAL:Awake alert, slightly dioriented to time (month) HEAD: Normal with no signs of trauma. mild bitemporal wasting EYES: SHABNAM, EOMI EARS, NOSE, THROAT: oropharynx clear without exudates. Moist mucous membranes. NECK:supple . LUNGS:CTAB HEART: sinus rhythm, bradycardia normal S1 and S2 without murmur ABDOMEN: Soft, nontender, not distended, normoactive bowel sounds, no guarding UPPER EXTREMITIES: 1+ radial pulses, cool, well-perfused. No cyanosis. No clubbing. LOWER EXTREMITIES: dependent edema bilateral LE, no horners/pain, no asymetry NEUROLOGICAL: Cranial nerves II-XII intact. slow slurred speech, facial symmetry. PSYCHIATRIC: Cooperative. Good eye contact. Appropriate mood and affect. SKIN: intact, no rashed ROS: 9 area reviewed, nothing notable except as per HPI Assessment: 66 yo woman with chronic anemia, CVA admitted with hgb 6, unintentional weightloss, recent vomiting episode, and DVT c/w gastric outlet obstruction/malignancy. Plan: -serial CBC -PPI gtt -hold heparin/Ac until EGD in am -will likely need IVC filter -NPO -Ok for floor post procedure. Loli ACNP [phone]
[2017-01-07] MEDS: PANTOPRAZOLE SODIUM 80 MG in SODIUM CHLORIDE 100 ML IVPB SCH (05:33)
[2017-01-07 06:07] LABS: SERUM IRON 16 ug/dL (27-139); TOTAL IRON BINDING CAPACITY 232 ug/dL (250-450); UIBC 216 ug/dL (118-369)
[2017-01-07] MEDS: INSULIN SLIDING SCALE (NOVOLOG) 1 VIAL SQ SCH ×4 (06:59→22:03)
--- NOTE | 2017-01-07 08:08 | CONS ---
DATE OF CONSULTATION: 01/07/2017 PHYSICAL MEDICINE REHABILITATION CONSULTATION REFERRING PHYSICIAN: Nitza Mackey MD HISTORY OF PRESENT ILLNESS: The patient is a 66-year-old woman with past medical history significant for TIA versus CVA, as well as diabetes, hypertension, hyperlipidemia and anemia, who was admitted with hyponatremia, anemia and edema of the lower extremities. On admission, the patient underwent ultrasound of the lower extremities, which showed bilateral deep venous thrombosis. Blood work demonstrated severely decreased hemoglobin at 6.0, normal WBCs of 5.1, and a platelet count of 259. The patient also had a sodium of 127 on admission. She underwent multiple units of blood transfusion and is pending EGD to identify the source of bleeding. However, she started to develop hematuria. MRI of the brain was obtained for slurred speech and acute mental status change, and showed ischemic white matter changes. No acute infarct was noted. Possible empty sella versus prior surgery. The patient's blood count has improved as of yesterday's blood work. WBC is 5.9 , hemoglobin 10.0, platelet count 222. INR on admission 1.21 and repeat yesterday was 1.15. Chemistry showed an improvement in sodium to 131 on yesterday's blood work, normal BUN of 12, creatinine 0.6. Decreased albumin of 3.2. Vitamin B12 was normal at 403. TSH normal at 1.09. Per the patient, she was ambulatory a few months ago. Per Dr. Mackey's note, she has not been ambulatory in a few years. Either way, the patient has deep venous thrombosis and is not anticoagulated in anticipation of the EGD this am. She is undergoing both neurologic as well as GI workup. She had a bladder ultrasound on January 06 which showed normal pelvic sonogram, no pelvic masses, urinary retention and has a Mills again, with hematuria. She has no lightheadedness, dizziness or headache. No chest pain or shortness of breath. The patient is seen bedside in rehabilitation evaluation. REVIEW OF PAST MEDICAL AND SURGICAL HISTORY: CVA versus TIA, diabetes, hypertension, hyperlipidemia, anemia. SOCIAL HISTORY: Per the patient, resident in a snf facility, and states she had been independent with her activities of daily living as well as ambulating with a walker a few months ago. Again, it is uncertain if this is accurate. She is not a tobacco user and does not drink alcohol. REVIEW OF SYSTEMS: No blurry vision or double vision that is new. No headache. No dizziness or lightheadedness. She has slurred speech but no nausea, vomiting, difficulty swallowing or difficulty chewing. No chest pain, shortness of breath , dyspnea on exertion, cough or abdominal discomfort. No bowel or bladder complaints, although she has a Mills currently. She has some tingling in her toes as well as numbness in her feet and right hand, which she states is not new. She also states the swelling in her lower extremities is not new. No joint arthralgias, but she does get some pain in her feet at night. No skin rash or breakdown reported by the patient. PHYSICAL EXAMINATION: General: The patient is seen lying in bed. She is in no acute distress. HEENT: Normocephalic and atraumatic. Her extraocular muscles appear intact. She has masked facies. No oral ulcers. Speech is dysarthric but no word finding difficulties. Neck: Supple. Extremities: She does edema, +1, in both lower extremities. No isolated calf tenderness. Skin: Without any rash or breakdown noted. Neuromuscular: She is awake and cooperative but seems confused about the date of admission and, again, her account of when she was ambulatory is different from the medical record. Cranial nerves 2 through 12 appear grossly intact. She has weakness throughout her upper and lower extremities, with diminished range of motion in both shoulder girdles, 100 to 110 degrees forward flexion. Diminished sensation distally in the right upper extremity, but normal sensation to pinprick otherwise throughout her upper extremities as well as both lower extremities, but grossly only 1/5 to 2/5 strength in both the upper and lower limbs. Good range of motion. No advanced osteo degenerative changes. OVERALL IMPRESSION: 1. Severe deficits in mobility and activities of daily living, of uncertain time period. 2. Diffuse weakness. 3. Slurred speech and altered mental status of uncertain etiology. 4. Anemia, status post blood transfusion, uncertain cause, workup in progress. 5. Hematuria. 6. Deep venous thrombosis of bilateral lower extremities. 7. History of cerebrovascular accident/transient ischemic attack. 8. History of diabetes with possible diabetic peripheral neuropathy. 9. Hypertension. 10. Hyperlipidemia. 11. History of anemia. PLAN AND SUGGESTIONS: 1. The patient is undergoing EGD this morning. 2. The patient is not anticoagulated. 3. We will hold physical therapy until anticoagulated. 4. Monitor hemoglobin and hematocrit. 5. Monitor sodium level. 6. Neurologic follow-up. 7. Skin precautions, avoid sacral and heel pressure. Monitor closely for any erythema or breakdown. 8. Nutritional support. 9. Further assessment once medically stable. Thank you for this referral. MALU SUGGS M.D. SOILA/[id number] MTDD
[2017-01-07] MEDS ORDERED: PROPOFOL 20 ML ONE (08:27)
[2017-01-07 08:32] LABS: BASOPHIL 0.3 % (0-2.0); EOSINOPHIL 2.1 % (0-4.5); MCH 27.6 pg (25.7-33.7); MCHC 31.1 g/dl (32.0-36.0); MEAN CELL VOLUME 88.7 fl (80-96); MEAN PLT VOLUME 8.1 fl (7.5-11.1); PLATELET COUNT 162 K/MM3 (134-434); RDW 18.3 % (11.6-15.6); WHITE BLOOD COUNT 3.4 K/mm3 (4.0-10.0)
[2017-01-07 08:56] LABS: ALBUMIN 2.9 g/dl (3.4-5.0); ANION GAP 7 (8-16); BILIRUBIN,TOTAL 0.8 mg/dL (0.2-1.0); CALCIUM 7.6 mg/dL (8.5-10.1); CO2 25 mmol/L (21-32); CREATININE 0.7 mg/dL (0.55-1.02); SGOT/AST 14 U/L (15-37)
[2017-01-07 09:04] LABS: ALK PHOS 53 U/L (45-117); SGPT/ALT 15 U/L (12-78); TOT PROT 5.6 g/dl (6.4-8.2)
[2017-01-07] MEDS: D5-1/2NS+20 MEQ KCL - 1,000 ML IV SCH (09:15)
[2017-01-07] MEDS: amLODIPine BESYLATE 5 MG TABLET (FP) PO SCH (09:16)
[2017-01-07 09:26] LABS: GLUCOSE,RANDOM 519 mg/dL (74-106)
[2017-01-07 10:08] LABS: URINE APPEARANCE CLOUDY; URINE BILIRUBIN NEGATIVE (NEGATIVE); URINE COLOR RED; URINE GLUCOSE (UA) 1+ (NEGATIVE); URINE KETONE NEGATIVE (NEGATIVE); URINE LEUK ESTERASE NEGATIVE (NEGATIVE); URINE NITRITE NEGATIVE (NEGATIVE); URINE UROBILINOGEN NEGATIVE E.U./dl (0.2-1.0)
[2017-01-07 10:09] LABS: URINE BLOOD 3+ (NEGATIVE); URINE PROTEIN 2+ (NEGATIVE)
[2017-01-07 10:13] LABS: URINE RBC 5203 /hpf (0-3)
--- NOTE | 2017-01-07 10:20 | PN ---
Progress Note, Physician History of Present Illness: Awake, responsive No complaints offered Temps improved Cultures prelim no growth S/P EGD - Current Medication List Current Medications: Active Medications Acetaminophen (Tylenol -) 650 mg PO Q4H PRN PRN Reason: FEVER OR PAIN Amlodipine Besylate (Norvasc -) 5 mg PO DAILY [facility] Last Admin: 01/07/17 09:16 Dose: Not Given Atorvastatin Calcium (Lipitor -) 40 mg PO HS [facility] Last Admin: 01/06/17 22:29 Dose: Not Given Potassium Chloride/Dextrose/Sod Cl (D5-1/2ns+20 Meq Kcl -) 1,000 mls @ 100 mls/ hr IV ASDIR [facility] Last Admin: 01/07/17 09:15 Dose: 100 mls/hr Insulin Aspart (Novolog Vial Sliding Scale -) 1 vial SQ ACHS [facility] PRN Reason: Protocol Last Admin: 01/07/17 06:59 Dose: Not Given Mirtazapine (Remeron -) 15 mg PO [facility] Last Admin: 01/06/17 22:29 Dose: Not Given Pneumococcal 13-Valent Conj Vacc (Prevnar 13 Syringe -) 0.5 ml IM .ONCE ONE Stop: 01/06/17 14:42 - Objective Vital Signs: Vital Signs Temperature 97.4 F L 01/07/17 10:00 Pulse Rate 53 L 01/07/17 10:00 Respiratory Rate 18 01/07/17 10:00 Blood Pressure 119/70 01/07/17 10:00 O2 Sat by Pulse Oximetry (%) 100 01/07/17 09:05 Constitutional: Yes: No Distress Eyes: Yes: Conjunctiva Clear Cardiovascular: Yes: Regular Rate and Rhythm, S1, S2 Respiratory: Yes: CTA Bilaterally Gastrointestinal: Yes: Normal Bowel Sounds, Soft. No: Tenderness Edema: Yes Labs: CBC, BMP 01/07/17 05:15 01/07/17 05:15 INR, PTT INR 1.15 (0.82-1.09) H 01/06/17 21:40 Fibrinogen 397.0 mg/dL (238-498) 01/06/17 21:40 Assessment/Plan Hypothermia- improved Possible sepsis Anemia S/P DVT Await c/s Observe off antibiotics
[2017-01-07 10:53] LABS: URINE CREATININE 16.2 mg/dL (20-320)
--- NOTE | 2017-01-07 11:14 | EKG ---
Test Reason : Blood Pressure : / mmHG Vent. Rate : 045 BPM Atrial Rate : 045 BPM P-R Int : 250 ms QRS Dur : 096 ms QT Int : 462 ms P-R-T Axes : 030 -19 024 degrees QTc Int : 399 ms SINUS BRADYCARDIA WITH SINUS ARRHYTHMIA WITH 1ST DEGREE A-V BLOCK WHEN COMPARED WITH ECG OF 19-SEP-2015 16:18, [place] INTERVAL HAS INCREASED VENT. RATE HAS DECREASED BY 27 BPM T WAVE INVERSION NO LONGER EVIDENT IN LATERAL LEADS Confirmed by CHRISTINE GORMAN MD ([id number]) on 01/07/2017 11:13:42 AM Referred By: Eliana MIRZA Confirmed By:CHRISTINE GORMAN MD
[2017-01-07] MEDS: DEXTROSE 5%-NORMAL SALINE 1,000 ML IV SCH (11:15)
--- NOTE | 2017-01-07 11:18 | EKG ---
Test Reason : Blood Pressure : / mmHG Vent. Rate : 068 BPM Atrial Rate : 068 BPM P-R Int : 222 ms QRS Dur : 092 ms QT Int : 426 ms P-R-T Axes : 043 -15 040 degrees QTc Int : 452 ms SINUS RHYTHM WITH 1ST DEGREE A-V BLOCK CANNOT RULE OUT ANTERIOR INFARCT , AGE UNDETERMINED ABNORMAL ECG WHEN COMPARED WITH ECG OF 19-SEP-2015 16:18, NONSPECIFIC T WAVE ABNORMALITY HAS REPLACED INVERTED T WAVES IN LATERAL LEADS Confirmed by CHRISTINE GORMAN MD ([id number]) on 01/07/2017 11:17:39 AM Referred By: Confirmed By:CHRISTINE GORMAN MD
--- NOTE | 2017-01-07 11:26 | PN ---
Teaching Attending Note Name of Resident: Sukhjinder Keating ATTENDING PHYSICIAN STATEMENT I saw and evaluated the patient. I reviewed the resident's note and discussed the case with the resident. I agree with the resident's findings and plan as documented. SUBJECTIVE: Pt seen and examined in the ICU. s/p EGD without significant findings. Somnolent but arousable. Denies shortness of breath or chest pain. No abdominal pain. OBJECTIVE: Last Vital Signs Temp Pulse Resp BP Pulse Ox 97.4 F L 53 L 18 119/70 100 01/07/17 10:00 01/07/17 10:00 01/07/17 10:00 01/07/17 10:00 01/07/17 09:05 Intake & Output 01/04/17 01/05/17 01/06/17 01/07/17 23:59 23:59 23:59 23:59 Intake Total 1530 870 Output Total 1700 900 Balance -170 -30 Weight 144 lb 150 lb 1 oz 133 lb 12.8 oz Gen: somnolent but arousable Heart: RRR Lung: decreased breath sounds at the bases Abd: soft, nontender Ext: no edema CBC, BMP 01/07/17 05:15 01/07/17 05:15 Active Medications Acetaminophen (Tylenol -) 650 mg PO Q4H PRN PRN Reason: FEVER OR PAIN Amlodipine Besylate (Norvasc -) 5 mg PO DAILY [facility] Last Admin: 01/07/17 09:16 Dose: Not Given Atorvastatin Calcium (Lipitor -) 40 mg PO HS [facility] Last Admin: 01/06/17 22:29 Dose: Not Given Dextrose/Sodium Chloride (D5-Ns -) 1,000 mls @ 100 mls/hr IV ASDIR [facility] Insulin Aspart (Novolog Vial Sliding Scale -) 1 vial SQ ACHS [facility] PRN Reason: Protocol Last Admin: 01/07/17 11:01 Dose: Not Given Mirtazapine (Remeron -) 15 mg PO HS [facility] Last Admin: 01/06/17 22:29 Dose: Not Given Pneumococcal 13-Valent Conj Vacc (Prevnar 13 Syringe -) 0.5 ml IM .ONCE ONE Stop: 01/06/17 14:42 ASSESSMENT AND PLAN: Anemia s/p PRBC transfusions DVT h/o CVA Hyponatremia Hyperkalemia DM HTN - transfuse PRBC - start anticoagulation per GI - monitor H/H, signs of bleeding - PO as tolerated - change IVF to NS - send urine lytes, osms, serum osms although may be altered given prior IVF - f/u cortisol level - can likely go to floor in AM
--- NOTE | 2017-01-07 11:27 | PN ---
Progress Note (short form) - Note Progress Note: Vascular Surgery Pt with bl lower ext DVT Had EGD this am - cleared from a GI standpoint. No bleed found. Can transfuse pt and start AC if no contraindications. If pt cannot be anticoagulated, will need IVC filter. Ezekiel Andrew DO
[2017-01-07] MEDS ORDERED: HEPARIN NA (PORCINE) 5,000 UNITS/ML 1ML VIAL IVPUSH PRN ×2 (11:36)
[2017-01-07 11:45] LABS: TARGET CELLS FEW
[2017-01-07] MEDS ORDERED: HEPARIN INFUSION - 500 ML IVPB ONE (11:59)
[2017-01-07] MEDS: HEPARIN - 25,000 UNIT in SODIUM CHLORIDE 495 ML IV SCH (12:00)
--- NOTE | 2017-01-07 12:30 | PN ---
Progress Note, Physician Chief Complaint: patient with drop in h/h hematuria getting pRBC - Current Medication List Current Medications: Active Medications Acetaminophen (Tylenol -) 650 mg PO Q4H PRN PRN Reason: FEVER OR PAIN Amlodipine Besylate (Norvasc -) 5 mg PO DAILY [facility] Last Admin: 01/07/17 09:16 Dose: Not Given Atorvastatin Calcium (Lipitor -) 40 mg PO HS [facility] Last Admin: 01/06/17 22:29 Dose: Not Given Heparin Sodium (Porcine) (Heparin -) 1,000 unit IVPUSH PRN PRN PRN Reason: Heparin Heparin Sodium (Porcine) (Heparin -) 5,000 unit IVPUSH PRN PRN PRN Reason: Heparin Dextrose/Sodium Chloride (D5-Ns -) 1,000 mls @ 100 mls/hr IV ASDIR [facility] Last Admin: 01/07/17 11:15 Dose: 100 mls/hr Heparin Sodium (Porcine) 25, (000 unit/ Sodium Chloride) 500 mls @ 16 mls/hr IV TITR [facility]; 800 UNIT/HR PRN Reason: Protocol Last Admin: 01/07/17 12:00 Dose: 16 mls/hr Pantoprazole Sodium (Protonix 40mg Ivpb (Pre-Docked)) 100 mls @ 200 mls/hr IVPB BID [facility] Insulin Aspart (Novolog Vial Sliding Scale -) 1 vial SQ ACHS [facility] PRN Reason: Protocol Last Admin: 01/07/17 11:01 Dose: Not Given Mirtazapine (Remeron -) 15 mg PO HS [facility] Last Admin: 01/06/17 22:29 Dose: Not Given Pneumococcal 13-Valent Conj Vacc (Prevnar 13 Syringe -) 0.5 ml IM .ONCE ONE Stop: 01/06/17 14:42 - Objective Vital Signs: Vital Signs Temperature 97.5 F L 01/07/17 12:00 Pulse Rate 50 L 01/07/17 12:00 Respiratory Rate 18 01/07/17 12:00 Blood Pressure 117/70 01/07/17 12:00 O2 Sat by Pulse Oximetry (%) 100 01/07/17 09:05 Constitutional: Yes: Calm Neck: Yes: Trachea Midline Cardiovascular: Yes: Regular Rate and Rhythm, S1, S2 Respiratory: Yes: CTA Bilaterally Gastrointestinal: Yes: Normal Bowel Sounds, Soft Genitourinary: Yes: Mills Present, Hematuria Neurological: Yes: Other (arousable) Labs: CBC, BMP 01/07/17 05:15 01/07/17 05:15 INR, PTT INR 1.15 (0.82-1.09) H 01/06/17 21:40 Fibrinogen 397.0 mg/dL (238-498) 01/06/17 21:40 Problem List - Problems (1) Anemia Assessment/Plan: will need IVC filter given hematuira ritchie need to hold AC Gs/p egd no bleeding noted iv protonix prbc today lasix 40mg after prbc hemolysis work up occult blooc Code(s): D64.9 - ANEMIA, UNSPECIFIED Qualifiers: Anemia type: other cause Other causes of anemia: other cause, not classified Qualified Code(s): D64.89 - Other specified anemias (2) DVT (deep venous thrombosis) Assessment/Plan: will possibly need ivc filter will monitor h/h Code(s): I82.409 - ACUTE EMBOLISM AND THOMBOS UNSP DEEP VN UNSP LOWER EXTREMITY (3) Hyponatremia Assessment/Plan: NS ivf Code(s): E87.1 - HYPO-OSMOLALITY AND HYPONATREMIA
[2017-01-07 12:45] LABS: LDH 109 U/L (84-246)
--- NOTE | 2017-01-07 14:31 | PN ---
Progress Note (short form) - Note Progress Note: will continue AC and monitor the hct hold off lasix given low BP Problem List - Problems (1) Anemia Code(s): D64.9 - ANEMIA, UNSPECIFIED Qualifiers: Anemia type: other cause Other causes of anemia: other cause, not classified Qualified Code(s): D64.89 - Other specified anemias (2) DVT (deep venous thrombosis) Code(s): I82.409 - ACUTE EMBOLISM AND THOMBOS UNSP DEEP VN UNSP LOWER EXTREMITY (3) Hyponatremia Code(s): E87.1 - HYPO-OSMOLALITY AND HYPONATREMIA
--- NOTE | 2017-01-07 16:08 | CONS ---
INFECTIOUS DISEASE CONSULTATION DATE OF CONSULTATION: 01/06/2017 Patient was seen and examined on the . Note was left on the chart along with orders on the . This is a 66-year-old woman who was admitted from the alf with anemia. She is status post transfusion. She was just transferred to the ICU for hypothermia. She is quite alert. She reports she has been residing at the alf for the last 2 years. She has been nonambulatory for the same period of time. She has chronic vomiting. She has bilateral pedal edema. Given the pedal edema, she had a duplex done in the emergency room of her legs, and she was found to have bilateral DVTs. I am asked to see her for the hypothermia. She denies any fevers or chills. She denies any chest pain or shortness of breath. She is requiring a warming blanket. PAST MEDICAL HISTORY: Notable for CVA, TIA, hypertension, hyperlipidemia, and diabetes. ALLERGIES: She has no known drug allergies. MEDICATIONS: At the alf included amlodipine, vitamin D, ferrous gluconate, omega-3, Colace, MiraLAX, vitamin C, atorvastatin, Zestril, metformin, and Remeron. FAMILY HISTORY: Noncontributory. SOCIAL HISTORY: She has been residing at the alf for 2 years. There is no history of any alcohol or cigarette use or substance use. REVIEW OF SYSTEMS: She reports the daily vomiting. She reports weakness, and she has had no rigors or chills. She is quite alert. PHYSICAL EXAMINATION: Vital Signs: Her temperature is 95, pulse of 49, blood pressure 133/93, respiratory rate was 18. She is saturating 100% on 2 L and looks quite comfortable. HEENT: She is normocephalic. Her eyes are anicteric. Neck: Supple. Lungs: Clear to auscultation. Heart: Regular rate and rhythm. Abdomen: Soft, nontender. Extremities: She has bilateral foot drop. LABORATORY DATA: Labs were notable for a white count of 6.2, hemoglobin 10.3 (on admission was 6). She received several units of blood. Platelets of 224, the reticulocyte count of 2.9. INR was 1.2. BUN and creatinine were 12 and 0.6 with a sodium of 131. LFTs normal. Urinalysis was pending. Chest x-ray was noted to have no infiltrate. No evidence of active pulmonary disease. She had a CT of her head as well, that showed no evidence of any acute intracranial hemorrhage, edema, or fracture and no evidence of CVA. In summary, this is a 66-year-old woman admitted with anemia requiring transfusion, bilateral deep vein thrombosis, and hypothermia. Concerns would be for malignancy at this time. Would obtain an a.m. cortisol level and blood cultures, UA, urine culture. Management of DVT per the ICU and primary service. Anemia status post transfusion with a question of possible malignancy. Further recommendations to follow. JANUARY SIM M.D. [id number]
--- NOTE | 2017-01-07 16:20 | PN ---
Physical Exam: SUBJECTIVE: Patient seen and examined denies pain. appears lethargic and apethatic in bed, did not want to sit up or talk. OBJECTIVE: Vital Signs Period Temp Pulse Resp BP Sys/Gary Pulse Ox Last 24 Hr 96.8 F-98.3 F 50-93 11-23 85-119/36-70 100-100 GENERAL: The patient is awake, alert, and fully oriented, in no acute distress. HEAD: Normal with no signs of trauma. EYES: PERRL, extraocular movements intact, sclera anicteric, conjunctiva clear. No ptosis. ENT: Ears normal, nares patent, oropharynx clear without exudates, moist mucous membranes. NECK: Trachea midline, full range of motion, supple. LUNGS: Breath sounds equal, clear to auscultation bilaterally, no wheezes, no crackles, no accessory muscle use. HEART: Regular rate and rhythm, S1, S2 without murmur, rub or gallop. ABDOMEN: Soft, nontender, nondistended, normoactive bowel sounds, no guarding, no rebound, no hepatosplenomegaly, no masses. EXTREMITIES: 2+ pulses, warm, well-perfused, no edema. NEUROLOGICAL: Cranial nerves II through XII grossly intact. Normal speech, gait not observed. PSYCH: Normal mood, normal affect. SKIN: Warm, dry, normal turgor, no rashes or lesions noted Laboratory Results - last 24 hr 01/06/17 01/06/17 01/06/17 13:20 21:40 21:40 WBC 5.9 RBC 3.66 Hgb 10.0 L Hct 29.8 L MCV 81.4 MCHC 33.7 RDW 18.1 H Plt Count 222 MPV 7.3 L Neutrophils % 76.2 Lymphocytes % 14.7 D Monocytes % 6.2 Eosinophils % 2.5 Basophils % 0.4 Macrocytosis Target Cells INR 1.15 H PTT (Actin FS) 36.4 H Fibrinogen 397.0 Sodium Potassium Chloride Carbon Dioxide Anion Gap BUN Creatinine Creat Clearance w eGFR POC Glucometer Random Glucose Serum Osmolality Calcium Total Bilirubin AST ALT Alkaline Phosphatase LD Total Total Protein Albumin Urine Color Yellow Urine Appearance Clear Urine pH 5.0 D Ur Specific [place] 1.015 Urine Protein Negative Urine Glucose (UA) Negative Urine Ketones Negative Urine Blood Negative Urine Nitrite Negative Urine Bilirubin Negative Urine Urobilinogen Negative Ur Leukocyte Esterase Negative Urine RBC Urine WBC Urine Osmolality Ur Random Sodium Ur Random Potassium Ur Random Chloride Ur Random Urea Nitrogn Urine Creatinine 01/07/17 01/07/17 01/07/17 05:15 05:15 05:15 WBC 3.4 L D RBC 2.43 L D Hgb 6.7 L* D Hct 21.6 L D MCV 88.7 MCHC 31.1 L RDW 18.3 H Plt Count 162 D MPV 8.1 D Neutrophils % 74.0 Lymphocytes % 17.9 D Monocytes % 5.7 Eosinophils % 2.1 Basophils % 0.3 Macrocytosis 1+ Target Cells Few INR PTT (Actin FS) Fibrinogen Sodium 126 L Potassium 5.5 H D Chloride 94 L Carbon Dioxide 25 Anion Gap 7 L BUN 7 D Creatinine 0.7 Creat Clearance w eGFR > 60 POC Glucometer Random Glucose 519 H* D Serum Osmolality 278 Calcium 7.6 L Total Bilirubin 0.8 AST 14 L D ALT 15 D Alkaline Phosphatase 53 D LD Total 109 Cancelled Total Protein 5.6 L Albumin 2.9 L Urine Color Urine Appearance Urine pH Ur Specific [place] Urine Protein Urine Glucose (UA) Urine Ketones Urine Blood Urine Nitrite Urine Bilirubin Urine Urobilinogen Ur Leukocyte Esterase Urine RBC Urine WBC Urine Osmolality Ur Random Sodium Ur Random Potassium Ur Random Chloride Ur Random Urea Nitrogn Urine Creatinine 01/07/17 01/07/17 01/07/17 06:53 07:30 07:30 WBC RBC Hgb Hct MCV MCHC RDW Plt Count MPV Neutrophils % Lymphocytes % Monocytes % Eosinophils % Basophils % Macrocytosis Target Cells INR PTT (Actin FS) Fibrinogen Sodium Potassium Chloride Carbon Dioxide Anion Gap BUN Creatinine Creat Clearance w eGFR POC Glucometer [id number] Random Glucose Serum Osmolality Calcium Total Bilirubin AST ALT Alkaline Phosphatase LD Total Total Protein Albumin Urine Color Red Urine Appearance Cloudy Urine pH 8.0 D Ur Specific [place] Urine Protein 2+ H Urine Glucose (UA) 1+ H Urine Ketones Negative Urine Blood 3+ H Urine Nitrite Negative Urine Bilirubin Negative Urine Urobilinogen Negative Ur Leukocyte Esterase Negative Urine RBC 5203 Urine WBC None Urine Osmolality Ur Random Sodium 124 Ur Random Potassium 16.7 Ur Random Chloride 122 Ur Random Urea Nitrogn 135 Urine Creatinine 16.2 L 01/07/17 01/07/17 10:59 11:20 WBC RBC Hgb Hct MCV MCHC RDW Plt Count MPV Neutrophils % Lymphocytes % Monocytes % Eosinophils % Basophils % Macrocytosis Target Cells INR PTT (Actin FS) Fibrinogen Sodium Potassium Chloride Carbon Dioxide Anion Gap BUN Creatinine Creat Clearance w eGFR POC Glucometer [phone] Random Glucose Serum Osmolality Calcium Total Bilirubin AST ALT Alkaline Phosphatase LD Total Total Protein Albumin Urine Color Urine Appearance Urine pH Ur Specific [place] Urine Protein Urine Glucose (UA) Urine Ketones Urine Blood Urine Nitrite Urine Bilirubin Urine Urobilinogen Ur Leukocyte Esterase Urine RBC Urine WBC Urine Osmolality 331 Ur Random Sodium Ur Random Potassium Ur Random Chloride Ur Random Urea Nitrogn Urine Creatinine Active Medications Generic Name Dose Route Start Last Admin Trade Name Freq PRN Reason Stop Dose Admin Acetaminophen 650 mg 01/06/17 14:21 Tylenol - PO Q4H PRN FEVER OR PAIN Amlodipine Besylate 5 mg 01/07/17 10:00 01/07/17 09:16 Norvasc - PO Not Given DAILY MINAL Atorvastatin Calcium 40 mg 01/06/17 22:00 01/06/17 22:29 Lipitor - PO Not Given HS MINAL Heparin Sodium (Porcine) 1,000 unit 01/07/17 11:36 Heparin - IVPUSH PRN PRN Heparin Heparin Sodium (Porcine) 5,000 unit 01/07/17 11:36 Heparin - IVPUSH PRN PRN Heparin Dextrose/Sodium Chloride 1,000 mls @ 100 mls/hr 01/07/17 11:15 01/07/17 11:15 D5-Ns - IV 100 mls/hr ASDIR MINAL Administration Heparin Sodium (Porcine) 25, 500 mls @ 16 mls/hr 01/07/17 12:00 01/07/17 12:00 000 unit/ Sodium Chloride IV 16 mls/hr TITR MINAL Administration Protocol 800 UNIT/HR Pantoprazole Sodium 100 mls @ 200 mls/hr 01/07/17 22:00 Protonix 40mg Ivpb (Pre-Docked) IVPB BID MINAL Insulin Aspart 1 vial 01/06/17 16:30 01/07/17 11:01 Novolog Vial Sliding Scale - SQ Not Given ACHS [facility] Protocol Mirtazapine 15 mg 01/06/17 22:00 01/06/17 22:29 Remeron - PO Not Given HS [facility] Pneumococcal 13-Valent Conj Vacc 0.5 ml 01/06/17 14:41 Prevnar 13 Syringe - IM 01/06/17 14:42 .ONCE ONE ASSESSMENT/PLAN: 66 yr old woman with hx of CVA, NIDDM, HTN, anemia, constipation referred from [facility] [place] [place] for b/l lower extremity edema, anemia and hyponatremia, transferred to the ICU for hypothermia. GI endoscopy unrevealing for UGI bleed, cleared from gi prespective for ac and diet protonix bid ivpb, start clear liquid tonight repeat labs to trend h/h D5-NS IVF @100, fluids changed due to hyponatremia consult: dr. pierce Hematological b/l le DVT's - placed on heparin repeat drop in h/h, transfuse 2units prbc's ldh wnl, low suspicion for hemolytic cause Dr. Andrew and dr. pineda consulted for IVC filter Infectious Disease hypothermia - unclear source of cause, r/o infectious, blood - NGT, urine cx pending monitor off abx for now temperature improved Neurological head ct and mri without acute pathology, unclear baseline, will verify with family pt's baseline no focal neurological deficits lethargic today post endoscopy, likely due to anesthesia consult: dr. indu RIZO acute hematuria - started around 5 am this morning, urine mixed with blood. bladder scan previously showed urinary retention without any masses abdominal CT scan this afternoon with hydroureteronephrosis and fluid in the bladder despite taylor in place, urology consult dr. cook consulted for further evaluation taylor placed for urinary retention - maintain taylor urine with elevated RBC's without casts Renal hyponatremia - urine studies show hypotonic hyponatremia with increased urine osmolarity and urinary sodium, concern for siadh, adrenal insufficiency, however these studies were conducted post-ivf administration, unclear accuracy Musculoskeletal physiatry evaluation for immobility, likely due to deconditioning physical therapy evaluation Endocrine NIDDM monitor BGM while on d5, no NISS while npo Cardiovascular HTN amlodipine po sinus bradycardia hr 45-55, likely due to patient's inactivity in bed or low h/h , will monitor closely Visit type - Emergency Visit Emergency Visit: No - New Patient This patient is new to me today: No - Critical Care Critical Care patient: Yes Total Critical Care Time (in minutes): 39 Critical Care Statement: The care of this patient involved high complexity decision making to prevent further life threatening deterioration of the patient 's condition and/or to evalute & treat vital organ system(s) failure or risk of failure.
--- NOTE | 2017-01-07 16:31 | PN ---
Progress Note (short form) - Note Progress Note: PAtient seen and examined Feels OK No complaints Last Vital Signs Temp Pulse Resp BP Pulse Ox 97.8 F 50 L 18 96/63 100 01/07/17 14:00 01/07/17 14:00 01/07/17 14:00 01/07/17 14:00 01/07/17 09:05 Cor: RSR, No murmurs, No gallops Lungs: Clear to P&A Abd: Soft, Normal bowel sounds, No organomegaly Ext:No significant edema Abnormal Lab Results 01/05/17 01/05/17 01/05/17 17:00 17:32 18:45 WBC RBC Hgb Hct MCHC RDW MPV INR PTT (Actin FS) Sodium Potassium Chloride Anion Gap Random Glucose Calcium Iron 16 L TIBC 232 L Iron Saturation 7 L AST Total Protein Albumin Urine Protein Urine Glucose (UA) Urine Blood Urine Creatinine Crossmatch See Detail See Detail 01/06/17 01/06/17 01/07/17 21:40 21:40 05:15 WBC 3.4 L D RBC 2.43 L D Hgb 10.0 L 6.7 L* D Hct 29.8 L 21.6 L D MCHC 31.1 L RDW 18.1 H 18.3 H MPV 7.3 L INR 1.15 H PTT (Actin FS) 36.4 H Sodium Potassium Chloride Anion Gap Random Glucose Calcium Iron TIBC Iron Saturation AST Total Protein Albumin Urine Protein Urine Glucose (UA) Urine Blood Urine Creatinine Crossmatch 01/07/17 01/07/17 01/07/17 05:15 07:30 07:30 WBC RBC Hgb Hct MCHC RDW MPV INR PTT (Actin FS) Sodium 126 L Potassium 5.5 H D Chloride 94 L Anion Gap 7 L Random Glucose 519 H* D Calcium 7.6 L Iron TIBC Iron Saturation AST 14 L D Total Protein 5.6 L Albumin 2.9 L Urine Protein 2+ H Urine Glucose (UA) 1+ H Urine Blood 3+ H Urine Creatinine 16.2 L Crossmatch Active Medications Generic Name Dose Route Start Last Admin Trade Name Freq PRN Reason Stop Dose Admin Acetaminophen 650 mg 01/06/17 14:21 Tylenol - PO Q4H PRN FEVER OR PAIN Amlodipine Besylate 5 mg 01/07/17 10:00 01/07/17 09:16 Norvasc - PO Not Given DAILY MINAL Atorvastatin Calcium 40 mg 01/06/17 22:00 01/06/17 22:29 Lipitor - PO Not Given HS MINAL Heparin Sodium (Porcine) 1,000 unit 01/07/17 11:36 Heparin - IVPUSH PRN PRN Heparin Heparin Sodium (Porcine) 5,000 unit 01/07/17 11:36 Heparin - IVPUSH PRN PRN Heparin Dextrose/Sodium Chloride 1,000 mls @ 100 mls/hr 01/07/17 11:15 01/07/17 11:15 D5-Ns - IV 100 mls/hr ASDIR MINAL Administration Heparin Sodium (Porcine) 25, 500 mls @ 16 mls/hr 01/07/17 12:00 01/07/17 12:00 000 unit/ Sodium Chloride IV 16 mls/hr TITR MINAL Administration Protocol 800 UNIT/HR Pantoprazole Sodium 100 mls @ 200 mls/hr 01/07/17 22:00 Protonix 40mg Ivpb (Pre-Docked) IVPB BID [facility] Insulin Aspart 1 vial 01/06/17 16:30 01/07/17 11:01 Novolog Vial Sliding Scale - SQ Not Given ACHS [facility] Protocol Mirtazapine 15 mg 01/06/17 22:00 01/06/17 22:29 Remeron - PO Not Given HS [facility] Pneumococcal 13-Valent Conj Vacc 0.5 ml 01/06/17 14:41 Prevnar 13 Syringe - IM 01/06/17 14:42 .ONCE ONE A/P 66 yo F with a past medical history significant for CVA/TIA 3 years ago, DM, HTN , HLD, anemia and constipation who presents from [facility] with bilateral pedal edema as well as anemia, 6.6 and 20 HGB and Hematocrit and a sodium of 129. found to have B/L DVT . Seems like a chronic GI bleed No active bleeding EGD unrevealing may need colonoscopy to get CT a/p non contrast would monitor CBC and check baseline coags IF cbc stable would consider heparin drip without bolus monitor cbc/coags if unable to anticoagulate will need filter
[2017-01-07 16:45] LABS: BASOPHIL 0.8 % (0-2.0); EOSINOPHIL 3.8 % (0-4.5); MCH 28.1 pg (25.7-33.7); MCHC 33.8 g/dl (32.0-36.0); MEAN CELL VOLUME 83.1 fl (80-96); MEAN PLT VOLUME 7.2 fl (7.5-11.1); NEUTROPHILS 66.7 % (42.8-82.8); PLATELET COUNT 216 K/MM3 (134-434); RDW 17.6 % (11.6-15.6); WHITE BLOOD COUNT 5.3 K/mm3 (4.0-10.0)
[2017-01-07 17:10] LABS: ANION GAP 11 (8-16); CALCIUM 8.3 mg/dL (8.5-10.1); CO2 24 mmol/L (21-32); CREATININE 0.5 mg/dL (0.55-1.02); GLUCOSE,RANDOM 63 mg/dL (74-106)
--- NOTE | 2017-01-07 17:49 | PN ---
Progress Note (short form) - Note Progress Note: 66 yo F with a past medical history significant for CVA/TIA 3 years ago, DM, HTN , HLD, anemia and constipation who presents from [facility] with bilateral pedal edema as well as anemia, 6.6 and 20 HGB and Hematocrit and a sodium of 129. found to have BL DVT . pt poor HX , slurred speech and feels weakness R side x 5 days. unknown prior deficits from her prior stroke. FU : apathetic and does not endorse new c/o MRI BRAIn reviewed --no new stroke, sig atrophy MRI BRAIN Impression: Ischemic changes in the white matter of both cerebral hemisphere also in the hilda sequela most probably to long-standing hypertension or small vessel atherosclerosis. No evidence of acute infarction. No evidence of intracerebral hemorrhage, subdural fluid collection. Minimal dilatation of lateral ventricles. Suggestive finding of partial empty sella.. Cerebellopontine angles unremarkable. No evidence of basilar artery stenosis, dissection or occlusion. The cavernous sinus details unremarkable. 01/06/17 CT HD . Impression. No evidence of acute intracranial hemorrhage, edema , midline shift, mass effect, or skull fracture. No CT evidence of acute territorial infarction. 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 Cardio/Vascular: Yes: HTN, Hyperlipdemia ...: No Endocrine: Yes: Diabetes Mellitus - Past Surgical History Past Surgical History: Yes: None - Alcohol/Substance Use Hx Alcohol Use: No History of Substance Use: reports: None - Smoking History Smoking history: Never smoked Have you smoked in the past 12 months: No - Social History ADL: Independent History of Recent Travel: No Home Medications - Allergies Allergies/Adverse Reactions: Allergies Allergy/AdvReac Type Severity Reaction Status Date / Time No Known Allergies Allergy Verified 09/19/15 15:08 - Home Medications Home Medications: Ambulatory Orders Amlodipine Besylate 5 mg PO DAILY 09/20/15 Ergocalciferol (Vitamin D2) [Vitamin D2] 50,000 unit PO WEEKLY 09/20/15 Ferrous Gluconate [Fergon -] 324 mg PO TID 09/20/15 Hazel-3 Fatty Acids [Hazel-3] 1,000 mg PO QID 09/20/15 Docusate Sodium [Colace -] 100 mg PO BID #60 capsule 09/22/15 Polyethylene Glycol 3350 [Miralax (For Daily Use) -] 17 gm PO DAILY PRN #1 bottle 09/22/15 Ascorbic Acid [Vitamin C] 500 mg PO DAILY 01/05/17 Atorvastatin Ca [Lipitor] 40 mg PO HS 01/05/17 Lisinopril [Zestril] 20 mg PO DAILY 01/05/17 Metformin HCl 500 mg PO BID 01/05/17 Mirtazapine [Remeron -] 15 mg PO HS 01/05/17 Physical Exam-Neuro Vital Signs: Vital Signs Temperature 97.8 F 01/07/17 16:00 Pulse Rate 53 L 01/07/17 16:00 Respiratory Rate 18 01/07/17 16:00 Blood Pressure 132/75 01/07/17 16:00 O2 Sat by Pulse Oximetry (%) 100 01/07/17 09:05 Constitutional: Yes: Pallor Edema: LLE: 2+, RLE: 2+ Labs: CBCD WBC 5.3 K/mm3 (4.0-10.0) D 01/07/17 15:20 RBC 4.69 M/mm3 (3.60-5.2) D 01/07/17 15:20 Hgb 13.2 GM/dL (10.7-15.3) D 01/07/17 15:20 Hct 38.9 % (32.4-45.2) D 01/07/17 15:20 MCV 83.1 fl (80-96) 01/07/17 15:20 MCHC 33.8 g/dl (32.0-36.0) 01/07/17 15:20 RDW 17.6 % (11.6-15.6) H 01/07/17 15:20 Plt Count 216 K/MM3 (134-434) D 01/07/17 15:20 MPV 7.2 fl (7.5-11.1) L D 01/07/17 15:20 CMP Sodium 131 mmol/L (136-145) L 01/07/17 15:20 Potassium 3.9 mmol/L (3.5-5.1) D 01/07/17 15:20 Chloride 96 mmol/L (98-107) L 01/07/17 15:20 Carbon Dioxide 24 mmol/L (21-32) 06/29/17 15:20 Anion Gap 11 (8-16) 01/07/17 15:20 BUN 6 mg/dL (7-18) L 01/07/17 15:20 Creatinine 0.5 mg/dL (0.55-1.02) L D 01/07/17 15:20 Creat Clearance w eGFR > 60 (>60) 01/07/17 05:15 Random Glucose 63 mg/dL (74-106) L D 01/07/17 15:20 Calcium 8.3 mg/dL (8.5-10.1) L 01/07/17 15:20 Total Bilirubin 0.8 mg/dL (0.2-1.0) 01/07/17 05:15 AST 14 U/L (15-37) L D 01/07/17 05:15 ALT 15 U/L (12-78) D 01/07/17 05:15 Alkaline Phosphatase 53 U/L (45-117) D 01/07/17 05:15 Total Protein 5.6 g/dl (6.4-8.2) L 01/07/17 05:15 Albumin 2.9 g/dl (3.4-5.0) L 01/07/17 05:15 CARDIAC ENZYMES Creatine Kinase 28 IU/L (26-192) 01/05/17 17:32 Troponin I < 0.02 ng/ml (0.00-0.05) 01/06/17 09:48 - Neuro Exam Level Of Consciousness: Yes: Alert (awake, though slow to respond, EOMI, slight R facial , dysarthric, no clear aphasia, weakness RUE-with limited effort--now better , weakness in LE, barely able to raise legs, generalized weakness and poor effort; reflexes inc on R, gait not tested; ) NIH Stroke Scale - Total Score NIH Stroke Scale Score: 0 Imaging - Results Cat Scan: Report Reviewed, Image Reviewed Assessment/Plan 66 yo F with a past medical history significant for CVA/TIA 3 years ago, DM, HTN , HLD, anemia and constipation who presents from [facility] with bilateral pedal edema as well as anemia, 6.6 and 20 HGB and Hematocrit and a sodium of 129. found to have BL DVT . suspect underlying vascular dementia with deconditioning from medical conditions MRI --no new stroke with atrophy DVT-- on AC, Fu plat and H/H call back PRN neuro sign off Dr Laird [phone]
[2017-01-07] MEDS ORDERED: LIDOCAINE HCL/PF 2% SDV 5ML VIAL ONE (21:09)
[2017-01-07] MEDS ORDERED: LIDOCAINE HCL 1%, 10 MG/ML (50 mL VIAL) SQ ONE (21:11)
[2017-01-07 21:40] LABS: BASOPHIL 0.4 % (0-2.0); EOSINOPHIL 4.1 % (0-4.5); MCH 27.6 pg (25.7-33.7); MCHC 33.4 g/dl (32.0-36.0); MEAN CELL VOLUME 82.4 fl (80-96); MEAN PLT VOLUME 7.4 fl (7.5-11.1); PLATELET COUNT 216 K/MM3 (134-434); RDW 17.4 % (11.6-15.6); WHITE BLOOD COUNT 4.9 K/mm3 (4.0-10.0)
[2017-01-07] MEDS: ATORVASTATIN CA 40 MG TABLET (FP) PO SCH (21:52)
[2017-01-07] MEDS: MIRTAZAPINE 15 MG TABLET (FP) PO SCH (21:52)
[2017-01-07] MEDS: PANTOPRAZOLE SODIUM 100 ML IVPB SCH (21:52)
[2017-01-08 05:33] LABS: BASOPHIL 0.7 % (0-2.0); EOSINOPHIL 4.8 % (0-4.5); MCH 27.8 pg (25.7-33.7); MCHC 34.1 g/dl (32.0-36.0); MEAN CELL VOLUME 81.5 fl (80-96); MEAN PLT VOLUME 6.8 fl (7.5-11.1); NEUTROPHILS 67.4 % (42.8-82.8); PLATELET COUNT 214 K/MM3 (134-434); RDW 17.1 % (11.6-15.6); WHITE BLOOD COUNT 4.7 K/mm3 (4.0-10.0)
[2017-01-08 06:24] LABS: ALBUMIN 2.9 g/dl (3.4-5.0); ANION GAP 9 (8-16); BILIRUBIN,TOTAL 1.1 mg/dL (0.2-1.0); CALCIUM 7.7 mg/dL (8.5-10.1); CO2 23 mmol/L (21-32); CREATININE 0.4 mg/dL (0.55-1.02); GLUCOSE,RANDOM 71 mg/dL (74-106); LDH 138 U/L (84-246); SGOT/AST 24 U/L (15-37); SGPT/ALT 19 U/L (12-78); TOT PROT 5.9 g/dl (6.4-8.2)
[2017-01-08 06:25] LABS: ALK PHOS 59 U/L (45-117)
[2017-01-08] MEDS: INSULIN SLIDING SCALE (NOVOLOG) 1 VIAL SQ SCH ×4 (06:46→23:10)
[2017-01-08] MEDS ORDERED: POLYETHYLENE GLYCOL 3350 119 GM BTL PO PRN (06:51)
--- NOTE | 2017-01-08 07:49 | PN ---
Progress Note, Physician Chief Complaint: ID All preceeding notes araceli Off antibiotics and no issue for infection I can see at this time Remains afebrile not hypothermic - Current Medication List Current Medications: Active Medications Acetaminophen (Tylenol -) 650 mg PO Q4H PRN PRN Reason: FEVER OR PAIN Amlodipine Besylate (Norvasc -) 5 mg PO DAILY COUNT [facility]CLUDES [facility] Last Admin: 01/07/17 09:16 Dose: Not Given Atorvastatin Calcium (Lipitor -) 40 mg PO HS COUNT INCLUDES [facility] Last Admin: 01/07/17 21:52 Dose: 40 mg Docusate Sodium (Colace -) 100 mg PO BID MINAL Heparin Sodium (Porcine) (Heparin -) 1,000 unit IVPUSH PRN PRN PRN Reason: Heparin Heparin Sodium (Porcine) (Heparin -) 5,000 unit IVPUSH PRN PRN PRN Reason: Heparin Dextrose/Sodium Chloride (D5-Ns -) 1,000 mls @ 100 mls/hr IV ASDIR COUNT INCLUDES [facility] Last Admin: 01/07/17 11:15 Dose: 100 mls/hr Heparin Sodium (Porcine) 25, (000 unit/ Sodium Chloride) 500 mls @ 16 mls/hr IV TITR MINAL; 800 UNIT/HR PRN Reason: Protocol Last Titration: 01/08/17 06:47 Dose: 350 unit/hr Pantoprazole Sodium (Protonix 40mg Ivpb (Pre-Docked)) 100 mls @ 200 mls/hr IVPB BID COUNT [facility]CLUD[facility] Last Admin: 01/07/17 21:52 Dose: 200 mls/hr Insulin Aspart (Novolog Vial Sliding Scale -) 1 vial SQ ACHS MINAL PRN Reason: Protocol Last Admin: 01/08/17 06:46 Dose: Not Given Mirtazapine (Remeron -) 15 mg PO HS COUNT [facility] Last Admin: 01/07/17 21:52 Dose: 15 mg Pneumococcal 13-Valent Conj Vacc (Prevnar 13 Syringe -) 0.5 ml IM .ONCE ONE Stop: 01/06/17 14:42 Polyethylene Glycol (Miralax (For Daily Use) -) 17 gm PO DAILY PRN PRN Reason: CONSTIPATION Potassium Chloride (Potassium Chloride Oral Liquid) 40 meq PO ONCE ONE Stop: 01/08/17 06:49 - Objective Vital Signs: Vital Signs Temperature 98.2 F 01/08/17 02:00 Pulse Rate 54 L 01/08/17 06:00 Respiratory Rate 13 01/08/17 06:00 Blood Pressure 143/85 01/08/17 06:00 O2 Sat by Pulse Oximetry (%) 100 01/07/17 21:00 Constitutional: Yes: No Distress Neck: Yes: WNL, Supple Cardiovascular: Yes: S1, S2 Respiratory: Yes: WNL, Regular, CTA Bilaterally Gastrointestinal: Yes: WNL, Normal Bowel Sounds, Soft. No: Tenderness Edema: Yes Labs: CBC, BMP 01/08/17 05:15 01/08/17 05:15 INR, PTT INR 1.15 (0.82-1.09) H 01/06/17 21:40 Fibrinogen 397.0 mg/dL (238-498) 01/06/17 21:40 Assessment/Plan Microbiology 01/06/17 09:48 Blood - Peripheral Venous Blood Culture - Preliminary NO GROWTH OBTAINED AFTER 24 HOURS, INCUBATION TO CONTINUE FOR 4 DAYS. 01/06/17 09:45 Blood - Peripheral Venous Blood Culture - Preliminary NO GROWTH OBTAINED AFTER 24 HOURS, INCUBATION TO CONTINUE FOR 4 DAYS. Laboratory Tests 01/08/17 01/08/17 05:15 05:15 WBC 4.7 Hgb 11.8 Hct 34.7 Plt Count 214 Total Bilirubin 1.1 H D AST 24 D LD Total 138 D Assessment Bilateral DVT . Anemia Search for ? malignancy in progress Vascular dementia Plan From ID standpoint nothing further to suggest Kindly recall as needed Aileen SINGH
--- NOTE | 2017-01-08 07:51 | PN ---
Problem List - Problems (1) Hypothermia due to non-environmental cause Code(s): T68.XXXA - HYPOTHERMIA, INITIAL ENCOUNTER (2) Sepsis Code(s): A41.9 - SEPSIS, UNSPECIFIED ORGANISM
--- NOTE | 2017-01-08 08:22 | PN ---
Progress Note, Physician - Current Medication List Current Medications: Active Medications Acetaminophen (Tylenol -) 650 mg PO Q4H PRN PRN Reason: FEVER OR PAIN Amlodipine Besylate (Norvasc -) 5 mg PO DAILY [facility] Last Admin: 01/07/17 09:16 Dose: Not Given Atorvastatin Calcium (Lipitor -) 40 mg PO HS [facility] Last Admin: 01/07/17 21:52 Dose: 40 mg Docusate Sodium (Colace -) 100 mg PO BID MINAL Heparin Sodium (Porcine) (Heparin -) 1,000 unit IVPUSH PRN PRN PRN Reason: Heparin Heparin Sodium (Porcine) (Heparin -) 5,000 unit IVPUSH PRN PRN PRN Reason: Heparin Dextrose/Sodium Chloride (D5-Ns -) 1,000 mls @ 100 mls/hr IV ASDIR [facility] Last Admin: 01/07/17 11:15 Dose: 100 mls/hr Heparin Sodium (Porcine) 25, (000 unit/ Sodium Chloride) 500 mls @ 16 mls/hr IV TITR MINAL; 800 UNIT/HR PRN Reason: Protocol Last Titration: 01/08/17 06:47 Dose: 350 unit/hr Pantoprazole Sodium (Protonix 40mg Ivpb (Pre-Docked)) 100 mls @ 200 mls/hr IVPB BID [facility] Last Admin: 01/07/17 21:52 Dose: 200 mls/hr Insulin Aspart (Novolog Vial Sliding Scale -) 1 vial SQ ACHS MINAL PRN Reason: Protocol Last Admin: 01/08/17 06:46 Dose: Not Given Mirtazapine (Remeron -) 15 mg PO HS [facility] Last Admin: 01/07/17 21:52 Dose: 15 mg Pneumococcal 13-Valent Conj Vacc (Prevnar 13 Syringe -) 0.5 ml IM .ONCE ONE Stop: 01/06/17 14:42 Polyethylene Glycol (Miralax (For Daily Use) -) 17 gm PO DAILY PRN PRN Reason: CONSTIPATION Potassium Chloride (Potassium Chloride Oral Liquid) 40 meq PO ONCE ONE Stop: 01/08/17 06:49 - Objective Vital Signs: Vital Signs Temperature 98.2 F 01/08/17 02:00 Pulse Rate 54 L 01/08/17 06:00 Respiratory Rate 13 01/08/17 06:00 Blood Pressure 143/85 01/08/17 06:00 O2 Sat by Pulse Oximetry (%) 100 01/07/17 21:00 Cardiovascular: Yes: Bradycardia, S1, S2 Respiratory: Yes: Regular, CTA Bilaterally Gastrointestinal: Yes: Normal Bowel Sounds, Soft Labs: CBC, BMP 01/08/17 05:15 01/08/17 05:15 INR, PTT INR 1.15 (0.82-1.09) H 01/06/17 21:40 Fibrinogen 397.0 mg/dL (238-498) 01/06/17 21:40 Problem List - Problems (1) Anemia Assessment/Plan: S/P PRBC MONITOR LABS PPI GI CONSULT will need IVC filter Gs/p egd no bleeding noted iv protonix s/p prbc hemolysis work up occult blood Code(s): D64.9 - ANEMIA, UNSPECIFIED Qualifiers: Anemia type: other cause Other causes of anemia: other cause, not classified Qualified Code(s): D64.89 - Other specified anemias (2) GI bleed Assessment/Plan: S/P PRBC MONITOR LABS PPI GI CONSULT Code(s): K92.2 - GASTROINTESTINAL HEMORRHAGE, UNSPECIFIED Qualifiers: GI bleed type/associated pathology: unspecified gastrointestinal hemorrhage type Qualified Code(s): K92.2 - Gastrointestinal hemorrhage, unspecified (3) HTN (hypertension) Code(s): I10 - ESSENTIAL (PRIMARY) HYPERTENSION (4) Bradycardia Assessment/Plan: ON MONITOR MONITOR EKG TSH CARDIO ECHO Code(s): R00.1 - BRADYCARDIA, UNSPECIFIED (5) Change in mental status Code(s): R41.82 - ALTERED MENTAL STATUS, UNSPECIFIED (6) Gait abnormality Code(s): R26.9 - UNSPECIFIED ABNORMALITIES OF GAIT AND MOBILITY (7) DVT (deep venous thrombosis) Assessment/Plan: AC WITH CLOSE MONITORING IVC FILTER Code(s): I82.409 - ACUTE EMBOLISM AND THOMBOS UNSP DEEP VN UNSP LOWER EXTREMITY
[2017-01-08] MEDS ORDERED: POTASSIUM CHLORIDE ORAL LIQUID 20 MEQ/15 ML PO ONE (09:00)
--- NOTE | 2017-01-08 09:58 | CON.GU ---
Consult Consult Specialty:: urology Referred by:: ICU Reason for Consultation:: hematuria - History of Present Illness Chief Complaint: hematuria History of Present Illness: 66 year old female with acute blood loss anemia. She was in urinary retention and had taylor placed. She developed hematuria subsequently Upper GI work up was negative. CT showed no bladder abnormalitites - History Source History Provided By: Medical Record Limitations to Obtaining History: Clinical Condition - Past Medical History [employer]: Yes: CVA, TIA Cardio/Vascular: Yes: HTN, Hyperlipdemia Renal/: No: Renal Failure, Renal Inusuff, BPH, Cancer, Hematuria, Hemodialysis , Neurogenic Bladder, Renal Calculi, UTI, Other ...: No Endocrine: Yes: Diabetes Mellitus - Past Surgical History Past Surgical History: Yes: None - Alcohol/Substance Use Hx Alcohol Use: No History of Substance Use: reports: None - Smoking History Smoking history: Never smoked Have you smoked in the past 12 months: No - Social History ADL: Independent History of Recent Travel: No Home Medications - Allergies Allergies/Adverse Reactions: Allergies Allergy/AdvReac Type Severity Reaction Status Date / Time No Known Allergies Allergy Verified 09/19/15 15:08 - Home Medications Home Medications: Ambulatory Orders Amlodipine Besylate 5 mg PO DAILY 09/20/15 Ergocalciferol (Vitamin D2) [Vitamin D2] 50,000 unit PO WEEKLY 09/20/15 Ferrous Gluconate [Fergon -] 324 mg PO TID 09/20/15 [place]-3 Fatty Acids [[place]-3] 1,000 mg PO QID 09/20/15 Docusate Sodium [Colace -] 100 mg PO BID #60 capsule 09/22/15 Polyethylene Glycol 3350 [Miralax (For Daily Use) -] 17 gm PO DAILY PRN #1 bottle 09/22/15 Ascorbic Acid [Vitamin C] 500 mg PO DAILY 01/05/17 Atorvastatin Ca [Lipitor] 40 mg PO HS 01/05/17 Lisinopril [Zestril] 20 mg PO DAILY 01/05/17 Metformin HCl 500 mg PO BID 01/05/17 Mirtazapine [Remeron -] 15 mg PO HS 01/05/17 Review of Systems - Review of Systems Genitourinary: reports: Hematuria. denies: Flank Pain, Incontinence Physical Exam- Vital Signs: Vital Signs Temperature 98.2 F 01/08/17 02:00 Pulse Rate 64 01/08/17 08:00 Respiratory Rate 19 01/08/17 08:00 Blood Pressure 125/76 01/08/17 08:00 O2 Sat by Pulse Oximetry (%) 100 01/07/17 21:00 Renal/: Yes: Taylor Present, Hematuria. No: Bladder Distention, CVA Tenderness - Left, CVA Tenderness - Right Labs: CBC, BMP 01/08/17 05:15 01/08/17 05:15 Imaging - Results Cat Scan: Report Reviewed Ultrasound: Report Reviewed Problem List - Problems (1) Hematuria Assessment/Plan: hematuria with urinary retention\. It is improving ,will need cysto when more stable. Unlikely this is the source of blood loss anemia. Code(s): R31.9 - HEMATURIA, UNSPECIFIED
[2017-01-08] MEDS ORDERED: PT OWN MED DRAWER 7, Y5N ONE (10:31)
[2017-01-08] MEDS: KCL 10 MEQ IVPB 100 ML IVPB SCH ×2 (10:32→12:05)
[2017-01-08] MEDS: DOCUSATE SODIUM 100 MG CAPSULE (FP) PO SCH ×2 (10:32→23:09)
[2017-01-08] MEDS: PANTOPRAZOLE SODIUM 100 ML IVPB SCH (10:33)
[2017-01-08] MEDS: DEXTROSE 5%-NORMAL SALINE 1,000 ML IV SCH ×2 (10:33→14:00)
[2017-01-08] MEDS: amLODIPine BESYLATE 5 MG TABLET (FP) PO SCH (10:33)
--- NOTE | 2017-01-08 11:33 | PN ---
Teaching Attending Note Name of Resident: Sukhjinder Keating ATTENDING PHYSICIAN STATEMENT I saw and evaluated the patient. I reviewed the resident's note and discussed the case with the resident. I agree with the resident's findings and plan as documented. SUBJECTIVE: Patient seen and examined in the ICU. Awake and responsive. No occult bleeding noted overnight except for slight hematuria. Denies CP or SOB. Does report mild LE "tightness". OBJECTIVE: Intake & Output 01/05/17 01/06/17 01/07/17 01/08/17 23:59 23:59 23:59 23:59 Intake Total 1530 2690 1728 Output Total 1700 1200 900 Balance -170 1490 828 Weight 144 lb 150 lb 1 oz 133 lb 12.8 oz 138 lb 9 oz Last Vital Signs Temp Pulse Resp BP Pulse Ox 96.1 F L 56 L 15 124/82 98 01/08/17 10:00 01/08/17 10:00 01/08/17 10:00 01/08/17 10:00 01/08/17 08:00 Active Medications Acetaminophen (Tylenol -) 650 mg PO Q4H PRN PRN Reason: FEVER OR PAIN Amlodipine Besylate (Norvasc -) 5 mg PO DAILY [facility] Last Admin: 01/08/17 10:33 Dose: 5 mg Atorvastatin Calcium (Lipitor -) 40 mg PO HS [facility] Last Admin: 01/07/17 21:52 Dose: 40 mg Docusate Sodium (Colace -) 100 mg PO BID [facility] Last Admin: 01/08/17 10:32 Dose: 100 mg Heparin Sodium (Porcine) (Heparin -) 1,000 unit IVPUSH PRN PRN PRN Reason: Heparin Heparin Sodium (Porcine) (Heparin -) 5,000 unit IVPUSH PRN PRN PRN Reason: Heparin Dextrose/Sodium Chloride (D5-Ns -) 1,000 mls @ 100 mls/hr IV ASDIR MINAL Last Admin: 01/08/17 10:33 Dose: 100 mls/hr Heparin Sodium (Porcine) 25, (000 unit/ Sodium Chloride) 500 mls @ 16 mls/hr IV TITR MINAL; 800 UNIT/HR PRN Reason: Protocol Last Titration: 01/08/17 06:47 Dose: 350 unit/hr Pantoprazole Sodium (Protonix 40mg Ivpb (Pre-Docked)) 100 mls @ 200 mls/hr IVPB BID [facility] Last Admin: 01/08/17 10:33 Dose: 200 mls/hr Insulin Aspart (Novolog Vial Sliding Scale -) 1 vial SQ ACHS MINAL PRN Reason: Protocol Last Admin: 01/08/17 06:46 Dose: Not Given Mirtazapine (Remeron -) 15 mg PO HS [facility] Last Admin: 01/07/17 21:52 Dose: 15 mg Pneumococcal 13-Valent Conj Vacc (Prevnar 13 Syringe -) 0.5 ml IM .ONCE ONE Stop: 01/06/17 14:42 Polyethylene Glycol (Miralax (For Daily Use) -) 17 gm PO DAILY PRN PRN Reason: CONSTIPATION Gen: Awake and responsive Heart: RRR Lung: decreased breath sounds at the bases Abd: soft, nontender Ext: slight edema Laboratory Results - last 24 hr 01/05/17 01/07/17 01/07/17 17:32 05:15 05:15 WBC 3.4 L D RBC 2.43 L D Hgb 6.7 L* D Hct 21.6 L D MCV 88.7 MCHC 31.1 L RDW 18.3 H Plt Count 162 D MPV 8.1 D Neutrophils % 74.0 Lymphocytes % 17.9 D Monocytes % 5.7 Eosinophils % 2.1 Basophils % 0.3 Macrocytosis 1+ Target Cells Few Haptoglobin PTT (Actin FS) Sodium Potassium Chloride Carbon Dioxide Anion Gap BUN Creatinine Creat Clearance w eGFR POC Glucometer Random Glucose Serum Osmolality Calcium Total Bilirubin AST ALT Alkaline Phosphatase LD Total Total Protein Albumin Cortisol AM Sample 7.5 Urine Color Urine Appearance Urine pH Ur Specific [place] Urine Protein Urine Glucose (UA) Urine Ketones Urine Blood Urine Nitrite Urine Bilirubin Urine Urobilinogen Ur Leukocyte Esterase Urine RBC Urine WBC Urine Osmolality Ur Random Sodium Ur Random Potassium Ur Random Chloride Ur Random Urea Nitrogn Urine Creatinine Blood Type O POSITIVE Antibody Screen Negative Direct Antiglob Test Crossmatch See Detail Spec Expiration Date 01/07/17 01/07/17 01/07/17 05:15 05:15 05:15 WBC RBC Hgb Hct MCV MCHC RDW Plt Count MPV Neutrophils % Lymphocytes % Monocytes % Eosinophils % Basophils % Macrocytosis Target Cells Haptoglobin 156 PTT (Actin FS) Sodium 126 L Potassium 5.5 H D Chloride 94 L Carbon Dioxide 25 Anion Gap 7 L BUN 7 D Creatinine 0.7 Creat Clearance w eGFR > 60 POC Glucometer Random Glucose 519 H* D Serum Osmolality 278 Calcium 7.6 L Total Bilirubin 0.8 AST 14 L D ALT 15 D Alkaline Phosphatase 53 D LD Total 109 Cancelled Total Protein 5.6 L Albumin 2.9 L Cortisol AM Sample Urine Color Urine Appearance Urine pH Ur Specific [place] Urine Protein Urine Glucose (UA) Urine Ketones Urine Blood Urine Nitrite Urine Bilirubin Urine Urobilinogen Ur Leukocyte Esterase Urine RBC Urine WBC Urine Osmolality Ur Random Sodium Ur Random Potassium Ur Random Chloride Ur Random Urea Nitrogn Urine Creatinine Blood Type Antibody Screen Direct Antiglob Test Crossmatch Spec Expiration Date 01/07/17 01/07/17 01/07/17 07:30 07:30 10:59 WBC RBC Hgb Hct MCV MCHC RDW Plt Count MPV Neutrophils % Lymphocytes % Monocytes % Eosinophils % Basophils % Macrocytosis Target Cells Haptoglobin PTT (Actin FS) Sodium Potassium Chloride Carbon Dioxide Anion Gap BUN Creatinine Creat Clearance w eGFR POC Glucometer 87.17145 Random Glucose Serum Osmolality Calcium Total Bilirubin AST ALT Alkaline Phosphatase LD Total Total Protein Albumin Cortisol AM Sample Urine Color Red Urine Appearance Cloudy Urine pH 8.0 D Ur Specific [place] 1.020 Urine Protein 2+ H Urine Glucose (UA) 1+ H Urine Ketones Negative Urine Blood 3+ H Urine Nitrite Negative Urine Bilirubin Negative Urine Urobilinogen Negative Ur Leukocyte Esterase Negative Urine RBC 5203 Urine WBC None Urine Osmolality Ur Random Sodium 124 Ur Random Potassium 16.7 Ur Random Chloride 122 Ur Random Urea Nitrogn 135 Urine Creatinine 16.2 L Blood Type Antibody Screen Direct Antiglob Test Crossmatch Spec Expiration Date 01/07/17 01/07/17 01/07/17 11:20 15:20 15:20 WBC 5.3 D RBC 4.69 D Hgb 13.2 D Hct 38.9 D MCV 83.1 MCHC 33.8 RDW 17.6 H Plt Count 216 D MPV 7.2 L D Neutrophils % 66.7 Lymphocytes % 21.7 D Monocytes % 7.0 Eosinophils % 3.8 D Basophils % 0.8 Macrocytosis Target Cells Haptoglobin PTT (Actin FS) Sodium 131 L Potassium 3.9 D Chloride 96 L Carbon Dioxide 24 Anion Gap 11 BUN 6 L Creatinine 0.5 L D Creat Clearance w eGFR POC Glucometer Random Glucose 63 L D Serum Osmolality Calcium 8.3 L Total Bilirubin AST ALT Alkaline Phosphatase LD Total Total Protein Albumin Cortisol AM Sample Urine Color Urine Appearance Urine pH Ur Specific [place] Urine Protein Urine Glucose (UA) Urine Ketones Urine Blood Urine Nitrite Urine Bilirubin Urine Urobilinogen Ur Leukocyte Esterase Urine RBC Urine WBC Urine Osmolality 331 Ur Random Sodium Ur Random Potassium Ur Random Chloride Ur Random Urea Nitrogn Urine Creatinine Blood Type Antibody Screen Direct Antiglob Test Crossmatch Spec Expiration Date 01/07/17 01/07/17 01/07/17 16:57 21:30 21:30 WBC 4.9 RBC 4.28 Hgb 11.8 D Hct 35.3 MCV 82.4 MCHC 33.4 RDW 17.4 H Plt Count 216 MPV 7.4 L Neutrophils % 73.0 Lymphocytes % 18.4 Monocytes % 4.1 Eosinophils % 4.1 Basophils % 0.4 Macrocytosis Target Cells Haptoglobin PTT (Actin FS) 150.2 H D Sodium Potassium Chloride Carbon Dioxide Anion Gap BUN Creatinine Creat Clearance w eGFR POC Glucometer 82.36269 Random Glucose Serum Osmolality Calcium Total Bilirubin AST ALT Alkaline Phosphatase LD Total Total Protein Albumin Cortisol AM Sample Urine Color Urine Appearance Urine pH Ur Specific [place] Urine Protein Urine Glucose (UA) Urine Ketones Urine Blood Urine Nitrite Urine Bilirubin Urine Urobilinogen Ur Leukocyte Esterase Urine RBC Urine WBC Urine Osmolality Ur Random Sodium Ur Random Potassium Ur Random Chloride Ur Random Urea Nitrogn Urine Creatinine Blood Type Antibody Screen Direct Antiglob Test Crossmatch Spec Expiration Date 01/07/17 01/08/17 01/08/17 22:02 05:15 05:15 WBC 4.7 RBC 4.26 Hgb 11.8 Hct 34.7 MCV 81.5 MCHC 34.1 RDW 17.1 H Plt Count 214 MPV 6.8 L Neutrophils % 67.4 Lymphocytes % 20.5 Monocytes % 6.6 Eosinophils % 4.8 H Basophils % 0.7 Macrocytosis Target Cells Haptoglobin PTT (Actin FS) Sodium 135 L Potassium 3.4 L Chloride 103 Carbon Dioxide 23 Anion Gap 9 BUN 4 L D Creatinine 0.4 L Creat Clearance w eGFR > 60 POC Glucometer 170.80690 Random Glucose 71 L Serum Osmolality Calcium 7.7 L Total Bilirubin 1.1 H D AST 24 D ALT 19 D Alkaline Phosphatase 59 LD Total 138 D Total Protein 5.9 L Albumin 2.9 L Cortisol AM Sample Urine Color Urine Appearance Urine pH Ur Specific [place] Urine Protein Urine Glucose (UA) Urine Ketones Urine Blood Urine Nitrite Urine Bilirubin Urine Urobilinogen Ur Leukocyte Esterase Urine RBC Urine WBC Urine Osmolality Ur Random Sodium Ur Random Potassium Ur Random Chloride Ur Random Urea Nitrogn Urine Creatinine Blood Type Antibody Screen Direct Antiglob Test Crossmatch Spec Expiration Date 01/08/17 01/08/17 05:15 05:15 WBC RBC Hgb Hct MCV MCHC RDW Plt Count MPV Neutrophils % Lymphocytes % Monocytes % Eosinophils % Basophils % Macrocytosis Target Cells Haptoglobin PTT (Actin FS) 105.2 H Sodium Potassium Chloride Carbon Dioxide Anion Gap BUN Creatinine Creat Clearance w eGFR POC Glucometer Random Glucose Serum Osmolality Calcium Total Bilirubin AST ALT Alkaline Phosphatase LD Total Total Protein Albumin Cortisol AM Sample Urine Color Urine Appearance Urine pH Ur Specific [place] Urine Protein Urine Glucose (UA) Urine Ketones Urine Blood Urine Nitrite Urine Bilirubin Urine Urobilinogen Ur Leukocyte Esterase Urine RBC Urine WBC Urine Osmolality Ur Random Sodium Ur Random Potassium Ur Random Chloride Ur Random Urea Nitrogn Urine Creatinine Blood Type Antibody Screen Direct Antiglob Test Negative Crossmatch Spec Expiration Date ASSESSMENT AND PLAN: Anemia s/p PRBC transfusions DVT h/o CVA Hyponatremia Hyperkalemia DM HTN - Normal transfusion thresholds - For IVC filter - PO as tolerated - IVF - Will need to discuss what AC therapy is appropriate on discharge - Rosa Ahuja Critical care time spent in reviewing chart, evaluating patient and formulating plan 35 min
[2017-01-08] MEDS ORDERED: PNEUMOC 13-VAL CONJ-DIP CRM/PF 0.5 ML DISP.SYRIN IM ONE (12:06)
[2017-01-08] MEDS: HEPARIN - 25,000 UNIT in SODIUM CHLORIDE 495 ML IV SCH (13:36)
--- NOTE | 2017-01-08 14:24 | PN ---
Physical Exam: SUBJECTIVE: Patient seen and examined. offers no compliants, wants more eat. denies vomiting, chest pain, fever. OBJECTIVE: Vital Signs Period Temp Pulse Resp BP Sys/Gary Pulse Ox Last 24 Hr 96.1 F-98.2 F 53-64 11-19 95-149/64-93 98-100 GENERAL: lethargic, in no acute distress. EYES: extraocular movements intact, sclera anicteric, conjunctiva clear. EARS, NOSE, THROAT: oropharynx clear without exudates. dry mucous membranes. LUNGS: basilar crackles HEART: sinus rhythm, bradycardia normal S1 and S2 without murmur ABDOMEN: Soft, nontender, not distended, normoactive bowel sounds, no guarding UPPER EXTREMITIES: 2+ radial pulses, cool, LOWER EXTREMITIES: weak dp pulses,cool, well-perfused. No calf tenderness. nonpitting edema b/l ankles NEUROLOGICAL: slow slurred speech but easily understood, facial symmetry. Laboratory Results - last 24 hr 01/06/17 01/06/17 01/07/17 16:35 22:45 05:15 WBC RBC Hgb Hct MCV MCHC RDW Plt Count MPV Neutrophils % Lymphocytes % Monocytes % Eosinophils % Basophils % Haptoglobin PTT (Actin FS) Sodium Potassium Chloride Carbon Dioxide Anion Gap BUN Creatinine Creat Clearance w eGFR POC Glucometer 88.49517 91.65666 Random Glucose Calcium Total Bilirubin AST ALT Alkaline Phosphatase LD Total Total Protein Albumin Cortisol AM Sample 7.5 Urine Color Urine Appearance Urine pH Ur Specific [place] Urine Protein Urine Glucose (UA) Urine Ketones Urine Blood Urine Nitrite Urine Bilirubin Urine Urobilinogen Ur Leukocyte Esterase Urine RBC Urine WBC Direct Antiglob Test 01/07/17 01/07/17 01/07/17 05:15 07:30 15:20 WBC 5.3 D RBC 4.69 D Hgb 13.2 D Hct 38.9 D MCV 83.1 MCHC 33.8 RDW 17.6 H Plt Count 216 D MPV 7.2 L D Neutrophils % 66.7 Lymphocytes % 21.7 D Monocytes % 7.0 Eosinophils % 3.8 D Basophils % 0.8 Haptoglobin 156 PTT (Actin FS) Sodium Potassium Chloride Carbon Dioxide Anion Gap BUN Creatinine Creat Clearance w eGFR POC Glucometer Random Glucose Calcium Total Bilirubin AST ALT Alkaline Phosphatase LD Total Total Protein Albumin Cortisol AM Sample Urine Color Red Urine Appearance Cloudy Urine pH 8.0 D Ur Specific [place] 1.020 Urine Protein 2+ H Urine Glucose (UA) 1+ H Urine Ketones Negative Urine Blood 3+ H Urine Nitrite Negative Urine Bilirubin Negative Urine Urobilinogen Negative Ur Leukocyte Esterase Negative Urine RBC 5203 Urine WBC None Direct Antiglob Test 01/07/17 01/07/17 01/07/17 15:20 16:57 21:30 WBC 4.9 RBC 4.28 Hgb 11.8 D Hct 35.3 MCV 82.4 MCHC 33.4 RDW 17.4 H Plt Count 216 MPV 7.4 L Neutrophils % 73.0 Lymphocytes % 18.4 Monocytes % 4.1 Eosinophils % 4.1 Basophils % 0.4 Haptoglobin PTT (Actin FS) Sodium 131 L Potassium 3.9 D Chloride 96 L Carbon Dioxide 24 Anion Gap 11 BUN 6 L Creatinine 0.5 L D Creat Clearance w eGFR POC Glucometer 82.41390 Random Glucose 63 L D Calcium 8.3 L Total Bilirubin AST ALT Alkaline Phosphatase LD Total Total Protein Albumin Cortisol AM Sample Urine Color Urine Appearance Urine pH Ur Specific [place] Urine Protein Urine Glucose (UA) Urine Ketones Urine Blood Urine Nitrite Urine Bilirubin Urine Urobilinogen Ur Leukocyte Esterase Urine RBC Urine WBC Direct Antiglob Test 01/07/17 01/07/17 01/08/17 21:30 22:02 05:15 WBC RBC Hgb Hct MCV MCHC RDW Plt Count MPV Neutrophils % Lymphocytes % Monocytes % Eosinophils % Basophils % Haptoglobin PTT (Actin FS) 150.2 H D Sodium 135 L Potassium 3.4 L Chloride 103 Carbon Dioxide 23 Anion Gap 9 BUN 4 L D Creatinine 0.4 L Creat Clearance w eGFR > 60 POC Glucometer 170.96142 Random Glucose 71 L Calcium 7.7 L Total Bilirubin 1.1 H D AST 24 D ALT 19 D Alkaline Phosphatase 59 LD Total 138 D Total Protein 5.9 L Albumin 2.9 L Cortisol AM Sample Urine Color Urine Appearance Urine pH Ur Specific [place] Urine Protein Urine Glucose (UA) Urine Ketones Urine Blood Urine Nitrite Urine Bilirubin Urine Urobilinogen Ur Leukocyte Esterase Urine RBC Urine WBC Direct Antiglob Test 01/08/17 01/08/17 01/08/17 05:15 05:15 05:15 WBC 4.7 RBC 4.26 Hgb 11.8 Hct 34.7 MCV 81.5 MCHC 34.1 RDW 17.1 H Plt Count 214 MPV 6.8 L Neutrophils % 67.4 Lymphocytes % 20.5 Monocytes % 6.6 Eosinophils % 4.8 H Basophils % 0.7 Haptoglobin PTT (Actin FS) 105.2 H Sodium Potassium Chloride Carbon Dioxide Anion Gap BUN Creatinine Creat Clearance w eGFR POC Glucometer Random Glucose Calcium Total Bilirubin AST ALT Alkaline Phosphatase LD Total Total Protein Albumin Cortisol AM Sample Urine Color Urine Appearance Urine pH Ur Specific [place] Urine Protein Urine Glucose (UA) Urine Ketones Urine Blood Urine Nitrite Urine Bilirubin Urine Urobilinogen Ur Leukocyte Esterase Urine RBC Urine WBC Direct Antiglob Test Negative 01/08/17 12:25 WBC RBC Hgb Hct MCV MCHC RDW Plt Count MPV Neutrophils % Lymphocytes % Monocytes % Eosinophils % Basophils % Haptoglobin PTT (Actin FS) Sodium Potassium Chloride Carbon Dioxide Anion Gap BUN Creatinine Creat Clearance w eGFR POC Glucometer 110.57891 Random Glucose Calcium Total Bilirubin AST ALT Alkaline Phosphatase LD Total Total Protein Albumin Cortisol AM Sample Urine Color Urine Appearance Urine pH Ur Specific [place] Urine Protein Urine Glucose (UA) Urine Ketones Urine Blood Urine Nitrite Urine Bilirubin Urine Urobilinogen Ur Leukocyte Esterase Urine RBC Urine WBC Direct Antiglob Test Active Medications Generic Name Dose Route Start Last Admin Trade Name Freq PRN Reason Stop Dose Admin Acetaminophen 650 mg 01/06/17 14:21 Tylenol - PO Q4H PRN FEVER OR PAIN Amlodipine Besylate 5 mg 01/07/17 10:00 01/08/17 10:33 Norvasc - PO 5 mg DAILY MINAL Administration Atorvastatin Calcium 40 mg 01/06/17 22:00 01/07/17 21:52 Lipitor - PO 40 mg HS MINAL Administration Docusate Sodium 100 mg 01/08/17 10:00 01/08/17 10:32 Colace - PO 100 mg BID MINAL Administration Heparin Sodium (Porcine) 1,000 unit 01/07/17 11:36 Heparin - IVPUSH PRN PRN Heparin Heparin Sodium (Porcine) 5,000 unit 01/07/17 11:36 Heparin - IVPUSH PRN PRN Heparin Heparin Sodium (Porcine) 25, 500 mls @ 16 mls/hr 01/07/17 12:00 01/08/17 13:36 000 unit/ Sodium Chloride IV 7 mls/hr TITR MINAL Administration Protocol 800 UNIT/HR Dextrose/Sodium Chloride 1,000 mls @ 21 mls/hr 01/08/17 13:39 D5-Ns - IV ASDIR MINAL Insulin Aspart 1 vial 01/06/17 16:30 01/08/17 13:33 Novolog Vial Sliding Scale - SQ Not Given ACHS [facility] Protocol Mirtazapine 15 mg 01/06/17 22:00 01/07/17 21:52 Remeron - PO 15 mg HS MINAL Administration Polyethylene Glycol 17 gm 01/08/17 06:51 Miralax (For Daily Use) - PO DAILY PRN CONSTIPATION Ranitidine HCl 150 mg 01/08/17 22:00 Zantac - PO BID [facility] ASSESSMENT/PLAN: 66 yr old woman with hx of CVA, NIDDM, HTN, anemia, constipation referred from [facility] for b/l lower extremity edema, anemia and hyponatremia, transferred to the ICU for hypothermia. GI tolerating diet well, advance to soft from full liquid zantac po BID h/h stable, transfuse of hg <7.0 had soft brown bowel movement today, will add miralax D5-NS IVF @21, rate changed due to basilar crackles and patient now taking adequate po consult: dr. pierce Hematological b/l le DVT's - placed on heparin Dr. Andrew and dr. pineda consulted for IVC filter Infectious Disease NGTD in urine cx x2, bld cx likely contaminant monitor off abx for now temperature wnl and stable Neurological head ct and mri without acute pathology, [facility] functional status has been declining. prior to 2 yrs ago she used to be more verbal but is not as verbal now. no focal neurological deficits improved mentation consult: dr. griggs - no further neurological work-up at this time. acute hematuria - improving dr. cook - further follow-up once stable, will need cysto taylor placed for urinary retention - maintain taylor urine with elevated RBC's without casts Renal hyponatremia - improved Musculoskeletal physiatry evaluation for immobility, likely due to deconditioning physical therapy evaluation Endocrine NIDDM BGM ACHS Cardiovascular HTN amlodipine po Bradycardia echo for further evaluation Visit type - Emergency Visit Emergency Visit: No - New Patient This patient is new to me today: No - Critical Care Critical Care patient: Yes Total Critical Care Time (in minutes): 36 Critical Care Statement: The care of this patient involved high complexity decision making to prevent further life threatening deterioration of the patient 's condition and/or to evalute & treat vital organ system(s) failure or risk of failure.
--- NOTE | 2017-01-08 16:40 | EKG ---
Test Reason : Blood Pressure : / mmHG Vent. Rate : 063 BPM Atrial Rate : 063 BPM P-R Int : 242 ms QRS Dur : 104 ms QT Int : 444 ms P-R-T Axes : 055 -20 067 degrees QTc Int : 454 ms SINUS RHYTHM WITH SINUS ARRHYTHMIA WITH 1ST DEGREE A-V BLOCK NONSPECIFIC T WAVE ABNORMALITY ABNORMAL ECG WHEN COMPARED WITH ECG OF 06-JAN-2017 08:53, NONSPECIFIC T WAVE ABNORMALITY NOW EVIDENT IN LATERAL LEADS Confirmed by MD GEOFFREY, ANALIA ([id number]) on 01/08/2017 4:39:50 PM Referred By: SANJAY GARDINER Confirmed By:ANALIA HALE MD
--- NOTE | 2017-01-08 16:41 | PN ---
GI Progress Note Subjective: Patient awake, responsive No new bleeding noted - Objective Vital Signs: Vital Signs Temperature 96.4 F L 01/08/17 14:00 Pulse Rate 64 01/08/17 14:00 Respiratory Rate 12 01/08/17 14:00 Blood Pressure 137/78 01/08/17 14:00 O2 Sat by Pulse Oximetry (%) 98 01/08/17 09:00 Constitutional: Well Nourished HENT: Yes: Normocephalic Cardiovascular: Yes: Regular Rate and Rhythm Respiratory: Yes: CTA Bilaterally Gastrointestinal Inspection: Yes: WNL ...Auscultate: Yes: Normoactive Bowel Sounds ...Palpate: Yes: Soft. No: Tenderness ...Percussion: Yes: Dullness Labs: CBC, BMP 01/08/17 05:15 01/08/17 05:15 INR, PTT INR 1.15 (0.82-1.09) H 01/06/17 21:40 Fibrinogen 397.0 mg/dL (238-498) 01/06/17 21:40 Assessment/Plan S/P EGD with no source of bleeding noted On AC with no evidence of new bleed and stable Hgb Continue AC Please call should my services be required.
[2017-01-08] MEDS ORDERED: HEMOQUE TEST 1 EACH EACH ONE (18:24)
--- NOTE | 2017-01-08 18:57 | PN ---
Progress Note (short form) - Note Progress Note: Patient seen and examined Prior notes reviewed EGD- without bleeding site identified On heparin therapy Urine clear Patient nodding to simple questions Last Vital Signs Temp Pulse Resp BP Pulse Ox 98.4 F 64 12 129/83 98 01/08/17 18:00 01/08/17 18:00 01/08/17 18:00 01/08/17 18:00 01/08/17 09:00 HEENT: SHABNAM, EOM Intact Cor: RSR, No murmurs, No gallops Lungs: diminished breath sounds bilaterally Abd: Soft, Normal bowel sounds, No organomegaly Ext:No significant edema Skin: No rashes, Integument intact Mills- clear urine Current Medications Generic Name Dose Route Start Last Admin Trade Name Freq PRN Reason Stop Dose Admin Acetaminophen 650 mg 01/06/17 14:21 Tylenol - PO Q4H PRN FEVER OR PAIN Amlodipine Besylate 5 mg 01/07/17 10:00 01/08/17 10:33 Norvasc - PO 5 mg DAILY MINAL Administration Atorvastatin Calcium 40 mg 01/06/17 22:00 01/07/17 21:52 Lipitor - PO 40 mg HS MINAL Administration Docusate Sodium 100 mg 01/08/17 10:00 01/08/17 10:32 Colace - PO 100 mg BID MINAL Administration Heparin Sodium (Porcine) 1,000 unit 01/07/17 11:36 Heparin - IVPUSH PRN PRN Heparin Heparin Sodium (Porcine) 5,000 unit 01/07/17 11:36 Heparin - IVPUSH PRN PRN Heparin Heparin Sodium (Porcine) 25, 500 mls @ 16 mls/hr 01/07/17 12:00 01/08/17 13:36 000 unit/ Sodium Chloride IV 7 mls/hr TITR MINAL Administration Protocol 800 UNIT/HR Dextrose/Sodium Chloride 1,000 mls @ 21 mls/hr 01/08/17 13:39 01/08/17 14:00 D5-Ns - IV 21 mls/hr ASDIR MINAL Administration Insulin Aspart 1 vial 01/06/17 16:30 01/08/17 18:29 Novolog Vial Sliding Scale - SQ Not Given ACHS MINAL Protocol Mirtazapine 15 mg 01/06/17 22:00 01/07/17 21:52 Remeron - PO 15 mg HS MINAL Administration Polyethylene Glycol 17 gm 01/08/17 06:51 01/08/17 17:38 Miralax (For Daily Use) - PO 17 grams DAILY PRN Administration CONSTIPATION Ranitidine HCl 150 mg 01/08/17 22:00 Zantac - PO BID [facility] Impression: Bilateral LE -DVT's A/C Hematuria Anemia Plan: IVC filter CBC, BMP 01/08/17 05:15 01/08/17 05:15
[2017-01-08] MEDS ORDERED: RANITIDINE HCL 150 MG TABLET (FP) PO SCH (22:00)
[2017-01-08] MEDS: MIRTAZAPINE 15 MG TABLET (FP) PO SCH (23:09)
[2017-01-08] MEDS: ATORVASTATIN CA 40 MG TABLET (FP) PO SCH (23:09)
[2017-01-09] MEDS ORDERED: PT OWN MED DRAWER 7, Y5N ONE ×2 (05:36→09:36)
[2017-01-09] MEDS: HEPARIN - 25,000 UNIT in SODIUM CHLORIDE 495 ML IV SCH ×2 (05:38→18:55)
[2017-01-09] MEDS: INSULIN SLIDING SCALE (NOVOLOG) 1 VIAL SQ SCH ×4 (06:08→21:53)
[2017-01-09 06:33] LABS: BASOPHIL 0.8 % (0-2.0); EOSINOPHIL 3.9 % (0-4.5); MCH 27.9 pg (25.7-33.7); MEAN CELL VOLUME 82.2 fl (80-96); MEAN PLT VOLUME 7.5 fl (7.5-11.1); NEUTROPHILS 70.5 % (42.8-82.8); PLATELET COUNT 235 K/MM3 (134-434); RDW 17.7 % (11.6-15.6); WHITE BLOOD COUNT 6.4 K/mm3 (4.0-10.0)
[2017-01-09 07:13] LABS: ALBUMIN 3.1 g/dl (3.4-5.0); ANION GAP 8 (8-16); CALCIUM 8.3 mg/dL (8.5-10.1); CO2 26 mmol/L (21-32); GLUCOSE,RANDOM 59 mg/dL (74-106); SGOT/AST 89 U/L (15-37); SGPT/ALT 68 U/L (12-78)
[2017-01-09 07:16] LABS: ALK PHOS 80 U/L (45-117); BILIRUBIN,TOTAL 0.8 mg/dL (0.2-1.0); CREATININE 0.3 mg/dL (0.55-1.02); TOT PROT 6.4 g/dl (6.4-8.2)
--- NOTE | 2017-01-09 08:22 | PN ---
Progress Note (short form) - Note Progress Note: PULM/CCM SUBJECTIVE: 24HR - no events, no evidence of bleeding - crit stable OBJECTIVE: Vital Signs Temp 97.7 F 01/09/17 06:00 Pulse 62 01/09/17 06:00 Resp 12 01/09/17 06:00 BP 130/80 01/09/17 06:00 Pulse Ox 100 01/08/17 21:00 Intake & Output 01/08/17 01/08/17 01/09/17 11:59 23:59 11:59 Intake Total 1728 1589 336 Output Total 900 2500 700 Balance 828 -911 -364 Weight 62.851 kg 62.4 kg Intake: IV 1328 689 336 D5-Ns - 1,000 ml @ 100 1200 500 mls/hr IV ASDIR [facility]AL Rx#: [id number] Heparin - 25,000 Unit In 128 84 84 Normal Saline - 495 ml @ 800 UNIT/HR 16 mls/hr IV TITR MINAL Rx#:[id number] D5-Ns - 1,000 ml @ 21 mls 105 252 /hr IV ASDIR [facility] Rx#: [id number] IVPB 100 200 Oral 300 700 Output: Urine 900 2500 700 Mills 900 2500 700 Other: Voiding Method Indwelling Catheter Indwelling Catheter Bowel Movement No Yes: small pasty brown. absorbed by pad Weight Measurement Method [facility] Active Medications Acetaminophen (Tylenol -) 650 mg PO Q4H PRN PRN Reason: FEVER OR PAIN Amlodipine Besylate (Norvasc -) 5 mg PO DAILY [facility] Last Admin: 01/08/17 10:33 Dose: 5 mg Atorvastatin Calcium (Lipitor -) 40 mg PO HS [facility] Last Admin: 01/08/17 23:09 Dose: 40 mg Docusate Sodium (Colace -) 100 mg PO BID [facility] Last Admin: 01/08/17 23:09 Dose: 100 mg Heparin Sodium (Porcine) (Heparin -) 1,000 unit IVPUSH PRN PRN PRN Reason: Heparin Heparin Sodium (Porcine) (Heparin -) 5,000 unit IVPUSH PRN PRN PRN Reason: Heparin Heparin Sodium (Porcine) 25, (000 unit/ Sodium Chloride) 500 mls @ 16 mls/hr IV TITR MINAL; 800 UNIT/HR PRN Reason: Protocol Last Admin: 01/09/17 05:38 Dose: 7 mls/hr Dextrose/Sodium Chloride (D5-Ns -) 1,000 mls @ 21 mls/hr IV ASDIR [facility] Last Admin: 01/08/17 14:00 Dose: 21 mls/hr Insulin Aspart (Novolog Vial Sliding Scale -) 1 vial SQ ACHS MINAL PRN Reason: Protocol Last Admin: 01/09/17 06:08 Dose: Not Given Mirtazapine (Remeron -) 15 mg PO HS [facility]AL Last Admin: 01/08/17 23:09 Dose: 15 mg Pantoprazole Sodium (Protonix -) 40 mg PO DAILY [facility] Polyethylene Glycol (Miralax (For Daily Use) -) 17 gm PO DAILY PRN PRN Reason: CONSTIPATION Last Admin: 01/08/17 17:38 Dose: 17 grams Gen: Awake and responsive, no distress Heart: RRR Lung: decreased breath sounds at the bases Abd: soft, nontender, + BS Ext: slight dependant edema Neuro: non-focal CBC, BMP 01/09/17 05:20 01/09/17 05:20 ASSESSMENT AND PLAN: Anemia s/p PRBC transfusions DVT h/o CVA Hyponatremia Hyperkalemia DM HTN - Normal transfusion thresholds - For IVC filter - PO as tolerated - IVF - cont heparin gtt for now, therapeutic goal - Kathleenntac Raza Ennis ACNP 1658
[2017-01-09] MEDS: DOCUSATE SODIUM 100 MG CAPSULE (FP) PO SCH ×2 (10:19→21:53)
[2017-01-09] MEDS: PANTOPRAZOLE 40 MG TABLET (FP) PO SCH (10:19)
[2017-01-09] MEDS: amLODIPine BESYLATE 5 MG TABLET (FP) PO SCH (10:19)
--- NOTE | 2017-01-09 10:31 | PN ---
Progress Note, Physician History of Present Illness: IN BED NO COMPLAINTS - Current Medication List Current Medications: Active Medications Acetaminophen (Tylenol -) 650 mg PO Q4H PRN PRN Reason: FEVER OR PAIN Amlodipine Besylate (Norvasc -) 5 mg PO DAILY [facility] Last Admin: 01/09/17 10:19 Dose: 5 mg Atorvastatin Calcium (Lipitor -) 40 mg PO HS [facility] Last Admin: 01/08/17 23:09 Dose: 40 mg Docusate Sodium (Colace -) 100 mg PO BID [facility] Last Admin: 01/09/17 10:19 Dose: 100 mg Heparin Sodium (Porcine) (Heparin -) 1,000 unit IVPUSH PRN PRN PRN Reason: Heparin Heparin Sodium (Porcine) (Heparin -) 5,000 unit IVPUSH PRN PRN PRN Reason: Heparin Heparin Sodium (Porcine) 25, (000 unit/ Sodium Chloride) 500 mls @ 16 mls/hr IV TITR MINAL; 800 UNIT/HR PRN Reason: Protocol Last Admin: 01/09/17 05:38 Dose: 7 mls/hr Dextrose/Sodium Chloride (D5-Ns -) 1,000 mls @ 21 mls/hr IV ASDIR [facility] Last Admin: 01/08/17 14:00 Dose: 21 mls/hr Insulin Aspart (Novolog Vial Sliding Scale -) 1 vial SQ ACHS MINAL PRN Reason: Protocol Last Admin: 01/09/17 06:08 Dose: Not Given Mirtazapine (Remeron -) 15 mg PO HS [facility] Last Admin: 01/08/17 23:09 Dose: 15 mg Pantoprazole Sodium (Protonix -) 40 mg PO DAILY [facility] Last Admin: 01/09/17 10:19 Dose: 40 mg Polyethylene Glycol (Miralax (For Daily Use) -) 17 gm PO DAILY PRN PRN Reason: CONSTIPATION Last Admin: 01/08/17 17:38 Dose: 17 grams - Objective Vital Signs: Vital Signs Temperature 98.1 F 01/09/17 10:00 Pulse Rate 64 01/09/17 10:00 Respiratory Rate 15 01/09/17 10:00 Blood Pressure 114/57 01/09/17 10:00 O2 Sat by Pulse Oximetry (%) 100 01/08/17 21:00 Respiratory: Yes: Regular, CTA Bilaterally Gastrointestinal: Yes: Normal Bowel Sounds, Soft Edema: Yes Labs: CBC, BMP 01/09/17 05:20 01/09/17 05:20 INR, PTT INR 1.15 (0.82-1.09) H 01/06/17 21:40 Fibrinogen 397.0 mg/dL (238-498) 01/06/17 21:40 Problem List - Problems (1) Anemia Assessment/Plan: S/P PRBC MONITOR LABS PPI GI CONSULT will need IVC filter Gs/p egd no bleeding noted on protonix hemolysis work up occult blood Code(s): D64.9 - ANEMIA, UNSPECIFIED Qualifiers: Anemia type: other cause Other causes of anemia: other cause, not classified Qualified Code(s): D64.89 - Other specified anemias (2) GI bleed Assessment/Plan: S/P PRBC MONITOR LABS PPI GI CONSULT---S/P EGD with no source of bleeding noted On AC with no evidence of new bleed and stable Hgb Continue AC Code(s): K92.2 - GASTROINTESTINAL HEMORRHAGE, UNSPECIFIED Qualifiers: GI bleed type/associated pathology: unspecified gastrointestinal hemorrhage type Qualified Code(s): K92.2 - Gastrointestinal hemorrhage, unspecified (3) HTN (hypertension) Assessment/Plan: MONITOR Code(s): I10 - ESSENTIAL (PRIMARY) HYPERTENSION (4) Bradycardia Code(s): R00.1 - BRADYCARDIA, UNSPECIFIED (5) Change in mental status Code(s): R41.82 - ALTERED MENTAL STATUS, UNSPECIFIED (6) Gait abnormality Assessment/Plan: PT EVAL Code(s): R26.9 - UNSPECIFIED ABNORMALITIES OF GAIT AND MOBILITY (7) DVT (deep venous thrombosis) Assessment/Plan: AC WITH CLOSE MONITORING IVC FILTER Code(s): I82.409 - ACUTE EMBOLISM AND THOMBOS UNSP DEEP VN UNSP LOWER EXTREMITY
--- NOTE | 2017-01-09 12:52 | PN ---
Progress Note (short form) - Note Progress Note: Progress Note: Patient seen and examined Prior notes reviewed EGD- without bleeding site identified On heparin therapy Urine clear Patient voicing to simple questions Vital Signs Period Temp Pulse Resp BP Sys/Gary Pulse Ox Last 24 Hr 96.4 F-98.4 F 59-71 12-18 114-137/57-83 99-100 HEENT: SHABNAM, EOM Intact Abd: Soft, Normal bowel sounds, No organomegaly Ext:No significant edema Skin: No rashes, Integument intact Mills- clear urine Current Medications Generic Name Dose Route Start Last Admin Trade Name Freq PRN Reason Stop Dose Admin Acetaminophen 650 mg 01/06/17 14:21 Tylenol - PO Q4H PRN FEVER OR PAIN Amlodipine Besylate 5 mg 01/07/17 10:00 01/09/17 10:19 Norvasc - PO 5 mg DAILY [facility] Administration Atorvastatin Calcium 40 mg 01/06/17 22:00 01/08/17 23:09 Lipitor - PO 40 mg HS MINAL Administration Docusate Sodium 100 mg 01/08/17 10:00 01/09/17 10:19 Colace - PO 100 mg BID MINAL Administration Heparin Sodium (Porcine) 1,000 unit 01/07/17 11:36 Heparin - IVPUSH PRN PRN Heparin Heparin Sodium (Porcine) 5,000 unit 01/07/17 11:36 Heparin - IVPUSH PRN PRN Heparin Heparin Sodium (Porcine) 25, 500 mls @ 16 mls/hr 01/07/17 12:00 01/09/17 05:38 000 unit/ Sodium Chloride IV 7 mls/hr TITR MINAL Administration Protocol 800 UNIT/HR Dextrose/Sodium Chloride 1,000 mls @ 21 mls/hr 01/08/17 13:39 01/08/17 14:00 D5-Ns - IV 21 mls/hr ASDIR MINAL Administration Insulin Aspart 1 vial 01/06/17 16:30 01/09/17 06:08 Novolog Vial Sliding Scale - SQ Not Given ACHS MINAL Protocol Mirtazapine 15 mg 01/06/17 22:00 01/08/17 23:09 Remeron - PO 15 mg HS MINAL Administration Pantoprazole Sodium 40 mg 01/09/17 10:00 01/09/17 10:19 Protonix - PO 40 mg DAILY MINAL Administration Polyethylene Glycol 17 gm 01/08/17 06:51 01/08/17 17:38 Miralax (For Daily Use) - PO 17 grams DAILY PRN Administration CONSTIPATION Impression: Anemia due to iron deficiency [low ferritin, low iron], Bilateral LE -DVT's - on heparin, titrate a/c to PTT Overall doing ok a/w IVC filter
[2017-01-09] MEDS: DEXTROSE 5%-NORMAL SALINE 1,000 ML IV SCH (14:00)
[2017-01-09] MEDS: SODIUM CHLORIDE 1,000 ML IV SCH (18:56)
[2017-01-09] MEDS: ATORVASTATIN CA 40 MG TABLET (FP) PO SCH (21:53)
[2017-01-09] MEDS: MIRTAZAPINE 15 MG TABLET (FP) PO SCH (21:54)
[2017-01-10] MEDS: INSULIN SLIDING SCALE (NOVOLOG) 1 VIAL SQ SCH ×4 (07:12→22:55)
--- NOTE | 2017-01-10 08:33 | PN ---
Progress Note (short form) - Note Progress Note: Progress Note: PULM/CCM SUBJECTIVE: pt seen and examined in the ICU, no complaints 24HR -no events, labs pending, on Heparin drip OBJECTIVE: Current Medications Acetaminophen (Tylenol -) 650 mg PO Q4H PRN PRN Reason: FEVER OR PAIN Amlodipine Besylate (Norvasc -) 5 mg PO DAILY [facility] Last Admin: 01/09/17 10:19 Dose: 5 mg Atorvastatin Calcium (Lipitor -) 40 mg PO HS [facility] Last Admin: 01/09/17 21:53 Dose: 40 mg Docusate Sodium (Colace -) 100 mg PO BID [facility] Last Admin: 01/09/17 21:53 Dose: 100 mg Heparin Sodium (Porcine) (Heparin -) 1,000 unit IVPUSH PRN PRN PRN Reason: Heparin Heparin Sodium (Porcine) (Heparin -) 5,000 unit IVPUSH PRN PRN PRN Reason: Heparin Heparin Sodium (Porcine) 25, (000 unit/ Sodium Chloride) 500 mls @ 16 mls/hr IV TITR MINAL; 800 UNIT/HR PRN Reason: Protocol Last Admin: 01/09/17 18:55 Dose: Not Given Sodium Chloride (Normal Saline -) 1,000 mls @ 10 mls/hr IV ASDIR [facility] Last Admin: 01/09/17 18:56 Dose: 10 mls/hr Insulin Aspart (Novolog Vial Sliding Scale -) 1 vial SQ ACHS MINAL PRN Reason: Protocol Last Admin: 01/10/17 07:12 Dose: Not Given Mirtazapine (Remeron -) 15 mg PO HS [facility] Last Admin: 01/09/17 21:54 Dose: 15 mg Pantoprazole Sodium (Protonix -) 40 mg PO DAILY [facility] Last Admin: 01/09/17 10:19 Dose: 40 mg Polyethylene Glycol (Miralax (For Daily Use) -) 17 gm PO DAILY PRN PRN Reason: CONSTIPATION Last Admin: 01/08/17 17:38 Dose: 17 grams Vital Signs Temp 97.5 F L 01/10/17 02:00 Pulse 67 01/10/17 06:00 Resp 14 01/10/17 06:00 BP 137/93 01/10/17 06:00 Pulse Ox 100 01/09/17 22:00 Intake & Output 01/09/17 01/10/17 01/10/17 18:59 06:59 18:59 Intake Total 1075 354 Output Total 700 500 Balance 375 -146 Weight 63.701 kg Intake: IV 315 204 Heparin - 25,000 Unit In 84 84 Normal Saline - 495 ml @ 800 UNIT/HR 16 mls/hr IV TITR MINAL Rx#:[id number] D5-Ns - 1,000 ml @ 21 mls 231 /hr IV ASDIR MINAL Rx#: [id number] Normal Saline - 1,000 ml 120 @ 10 mls/hr IV ASDIR MINAL Rx#:[id number] Oral 760 150 Output: Urine 700 500 Mills 700 500 Other: Voiding Method Indwelling Catheter Indwelling Catheter Bowel Movement Yes: mod pasty brown No Weight Measurement Method Built in [facility] Gen: Awake and responsive, no distress Heart: RRR Lung: decreased breath sounds at the bases Abd: soft, nontender, + BS Ext: slight dependant edema Neuro: non-focal Labs pending ASSESSMENT AND PLAN: Anemia s/p PRBC transfusions DVT h/o CVA Hyponatremia Hyperkalemia DM HTN - Normal transfusion thresholds - For IVC filter - PO as tolerated - IVF - cont heparin gtt for now, therapeutic goal - Zantac Can transfer to the floor if Hgb remains stable Maurice Chao Pulm/Critical Care [employer]
[2017-01-10 08:45] LABS: ANION GAP 7 (8-16); CALCIUM 8.8 mg/dL (8.5-10.1); CO2 27 mmol/L (21-32); CREATININE 0.6 mg/dL (0.55-1.02); GLUCOSE,RANDOM 69 mg/dL (74-106); MAGNESIUM 1.6 mg/dL (1.8-2.4); PHOSPHOROUS 2.3 mg/dL (2.5-4.9)
[2017-01-10] MEDS: amLODIPine BESYLATE 5 MG TABLET (FP) PO SCH (09:21)
[2017-01-10] MEDS: PANTOPRAZOLE 40 MG TABLET (FP) PO SCH (09:21)
[2017-01-10] MEDS: DOCUSATE SODIUM 100 MG CAPSULE (FP) PO SCH ×2 (09:21→22:55)
--- NOTE | 2017-01-10 09:54 | PN ---
Progress Note, Physician History of Present Illness: IN BED NO COMPLAINTS - Current Medication List Current Medications: Active Medications Acetaminophen (Tylenol -) 650 mg PO Q4H PRN PRN Reason: FEVER OR PAIN Amlodipine Besylate (Norvasc -) 5 mg PO DAILY [facility] Last Admin: 01/10/17 09:21 Dose: 5 mg Atorvastatin Calcium (Lipitor -) 40 mg PO HS [facility] Last Admin: 01/09/17 21:53 Dose: 40 mg Docusate Sodium (Colace -) 100 mg PO BID [facility] Last Admin: 01/10/17 09:21 Dose: 100 mg Heparin Sodium (Porcine) (Heparin -) 1,000 unit IVPUSH PRN PRN PRN Reason: Heparin Heparin Sodium (Porcine) (Heparin -) 5,000 unit IVPUSH PRN PRN PRN Reason: Heparin Last Admin: 01/10/17 09:20 Dose: 5,000 unit Heparin Sodium (Porcine) 25, (000 unit/ Sodium Chloride) 500 mls @ 16 mls/hr IV TITR MINAL; 800 UNIT/HR PRN Reason: Protocol Last Titration: 01/10/17 09:21 Dose: 500 unit/hr Sodium Chloride (Normal Saline -) 1,000 mls @ 10 mls/hr IV ASDIR [facility] Last Admin: 01/09/17 18:56 Dose: 10 mls/hr Insulin Aspart (Novolog Vial Sliding Scale -) 1 vial SQ ACHS MINAL PRN Reason: Protocol Last Admin: 01/10/17 07:12 Dose: Not Given Mirtazapine (Remeron -) 15 mg PO HS [facility] Last Admin: 01/09/17 21:54 Dose: 15 mg Pantoprazole Sodium (Protonix -) 40 mg PO DAILY [facility] Last Admin: 01/10/17 09:21 Dose: 40 mg Polyethylene Glycol (Miralax (For Daily Use) -) 17 gm PO DAILY PRN PRN Reason: CONSTIPATION Last Admin: 01/08/17 17:38 Dose: 17 grams - Objective Vital Signs: Vital Signs Temperature 97.4 F L 01/10/17 08:00 Pulse Rate 70 01/10/17 08:00 Respiratory Rate 18 01/10/17 08:00 Blood Pressure 129/88 01/10/17 08:00 O2 Sat by Pulse Oximetry (%) 100 01/09/17 22:00 Cardiovascular: Yes: Regular Rate and Rhythm Respiratory: Yes: Regular, CTA Bilaterally Gastrointestinal: Yes: Normal Bowel Sounds, Soft Labs: CBC, BMP 01/10/17 08:05 01/10/17 08:05 INR, PTT INR 1.15 (0.82-1.09) H 01/06/17 21:40 Fibrinogen 397.0 mg/dL (238-498) 01/06/17 21:40 Problem List - Problems (1) Anemia Assessment/Plan: S/P PRBC MONITOR LABS PPI GI CONSULT will need IVC filter Gs/p egd no bleeding noted on protonix hemolysis work up occult blood Code(s): D64.9 - ANEMIA, UNSPECIFIED Qualifiers: Anemia type: other cause Other causes of anemia: other cause, not classified Qualified Code(s): D64.89 - Other specified anemias (2) GI bleed Assessment/Plan: S/P PRBC MONITOR LABS PPI GI CONSULT---S/P EGD with no source of bleeding noted On AC with no evidence of new bleed and stable Hgb Continue AC Code(s): K92.2 - GASTROINTESTINAL HEMORRHAGE, UNSPECIFIED Qualifiers: GI bleed type/associated pathology: unspecified gastrointestinal hemorrhage type Qualified Code(s): K92.2 - Gastrointestinal hemorrhage, unspecified (3) HTN (hypertension) Assessment/Plan: MONITOR Code(s): I10 - ESSENTIAL (PRIMARY) HYPERTENSION (4) Bradycardia Assessment/Plan: ON MONITOR MONITOR EKG TSH CARDIO ECHO Code(s): R00.1 - BRADYCARDIA, UNSPECIFIED (5) Change in mental status Assessment/Plan: CT OF HEAD NEURO CONSULT CULTURES AWAIT AM LABS Code(s): R41.82 - ALTERED MENTAL STATUS, UNSPECIFIED (6) Gait abnormality Assessment/Plan: PT EVAL Code(s): R26.9 - UNSPECIFIED ABNORMALITIES OF GAIT AND MOBILITY (7) DVT (deep venous thrombosis) Assessment/Plan: AC WITH CLOSE MONITORING IVC FILTER Code(s): I82.409 - ACUTE EMBOLISM AND THOMBOS UNSP DEEP VN UNSP LOWER EXTREMITY
[2017-01-10 10:51] LABS: BASOPHIL 0.7 % (0-2.0); EOSINOPHIL 3.4 % (0-4.5); MCH 28.2 pg (25.7-33.7); MCHC 34.5 g/dl (32.0-36.0); MEAN CELL VOLUME 81.6 fl (80-96); MEAN PLT VOLUME 7.4 fl (7.5-11.1); NEUTROPHILS 73.5 % (42.8-82.8); PLATELET COUNT 217 K/MM3 (134-434); RDW 18.1 % (11.6-15.6); WHITE BLOOD COUNT 7.7 K/mm3 (4.0-10.0)
--- NOTE | 2017-01-10 12:55 | PN ---
Progress Note (short form) - Note Progress Note: Progress Note: Patient seen and examined Prior notes reviewed EGD- without bleeding site identified On heparin therapy Urine clear Patient voicing to simple questions Vital Signs Period Temp Pulse Resp BP Sys/Gary Pulse Ox Last 24 Hr 97.4 F-97.8 F 63-74 14-18 97-137/66-93 100-100 HEENT: SHABNAM, EOM Intact Abd: Soft, Normal bowel sounds, No organomegaly Ext:No significant edema Skin: No rashes, Integument intact Mills- clear urine Current Medications Generic Name Dose Route Start Last Admin Trade Name Freq PRN Reason Stop Dose Admin Acetaminophen 650 mg 01/06/17 14:21 Tylenol - PO Q4H PRN FEVER OR PAIN Amlodipine Besylate 5 mg 01/07/17 10:00 01/10/17 09:21 Norvasc - PO 5 mg DAILY [facility] Administration Atorvastatin Calcium 40 mg 01/06/17 22:00 01/09/17 21:53 Lipitor - PO 40 mg HS MINAL Administration Docusate Sodium 100 mg 01/08/17 10:00 01/10/17 09:21 Colace - PO 100 mg BID MINAL Administration Heparin Sodium (Porcine) 1,000 unit 01/07/17 11:36 Heparin - IVPUSH PRN PRN Heparin Heparin Sodium (Porcine) 5,000 unit 01/07/17 11:36 01/10/17 09:20 Heparin - IVPUSH 5,000 unit PRN PRN Administration Heparin Heparin Sodium (Porcine) 25, 500 mls @ 16 mls/hr 01/07/17 12:00 01/10/17 09:21 000 unit/ Sodium Chloride IV 500 unit/hr TITR MINAL Titration Protocol 800 UNIT/HR Sodium Chloride 1,000 mls @ 10 mls/hr 01/09/17 18:30 01/09/17 18:56 Normal Saline - IV 10 mls/hr ASDIR MIN[facility] Administration Insulin Aspart 1 vial 01/06/17 16:30 01/10/17 07:12 Novolog Vial Sliding Scale - SQ Not Given ACHS MINAL Protocol Mirtazapine 15 mg 01/06/17 22:00 01/09/17 21:54 Remeron - PO 15 mg HS MINAL Administration Pantoprazole Sodium 40 mg 01/09/17 10:00 01/10/17 09:21 Protonix - PO 40 mg DAILY [facility] Administration Polyethylene Glycol 17 gm 01/08/17 06:51 01/08/17 17:38 Miralax (For Daily Use) - PO 17 grams DAILY PRN Administration CONSTIPATION Impression: Anemia due to iron deficiency [low ferritin, low iron], Bilateral LE -DVT's - on heparin, titrate a/c to PTT Overall doing ok a/w IVC filter
[2017-01-10] MEDS ORDERED: HEMOQUE TEST 1 EACH EACH ONE (16:15)
[2017-01-10] MEDS: HEPARIN - 25,000 UNIT in SODIUM CHLORIDE 495 ML IV SCH (16:35)
[2017-01-10] MEDS: SODIUM CHLORIDE 1,000 ML IV SCH (17:00)
[2017-01-10] MEDS: ATORVASTATIN CA 40 MG TABLET (FP) PO SCH (22:55)
[2017-01-10] MEDS: MIRTAZAPINE 15 MG TABLET (FP) PO SCH (22:55)
[2017-01-11 06:02] LABS: MCH 27.9 pg (25.7-33.7); MEAN CELL VOLUME 81.9 fl (80-96); MEAN PLT VOLUME 7.6 fl (7.5-11.1); PLATELET COUNT 234 K/MM3 (134-434); RDW 17.6 % (11.6-15.6); WHITE BLOOD COUNT 6.7 K/mm3 (4.0-10.0)
[2017-01-11 06:24] LABS: ANION GAP 9 (8-16); CALCIUM 8.9 mg/dL (8.5-10.1); CO2 25 mmol/L (21-32); CREATININE 0.4 mg/dL (0.55-1.02); GLUCOSE,RANDOM 68 mg/dL (74-106); MAGNESIUM 1.6 mg/dL (1.8-2.4); PHOSPHOROUS 2.8 mg/dL (2.5-4.9)
[2017-01-11] MEDS: INSULIN SLIDING SCALE (NOVOLOG) 1 VIAL SQ SCH ×4 (06:49→21:12)
[2017-01-11] MEDS ORDERED: MAGNESIUM SULF 50% (8.12 MEQ/2 ML-1 GM VIAL) IVPB ONE (07:39)
[2017-01-11] MEDS: SODIUM CHLORIDE 1,000 ML IV SCH ×3 (09:37→19:00)
[2017-01-11] MEDS: PANTOPRAZOLE 40 MG TABLET (FP) PO SCH (09:45)
[2017-01-11] MEDS: amLODIPine BESYLATE 5 MG TABLET (FP) PO SCH (09:45)
[2017-01-11] MEDS: DOCUSATE SODIUM 100 MG CAPSULE (FP) PO SCH ×2 (09:45→21:11)
[2017-01-11] MEDS ORDERED: MAGNESIUM SULF 50% (8.12 MEQ/2 ML-1 GM VIAL) ONE (09:48)
[2017-01-11] MEDS: HEPARIN - 25,000 UNIT in SODIUM CHLORIDE 495 ML IV SCH ×2 (11:59→18:55)
--- NOTE | 2017-01-11 12:02 | PN ---
Teaching Attending Note Name of Resident: Warren Villalobos ATTENDING PHYSICIAN STATEMENT I saw and evaluated the patient. I reviewed the resident's note and discussed the case with the resident. I agree with the resident's findings and plan as documented. SUBJECTIVE: Pt seen and examined in the ICU. Denies shortness of breath, chest pain. H/H has been stable. Scheduled for IVC filter placement today. OBJECTIVE: Last Vital Signs Temp Pulse Resp BP Pulse Ox 98.4 F 52 L 14 121/75 100 01/11/17 06:00 01/11/17 06:00 01/11/17 06:00 01/11/17 06:00 01/10/17 21:00 Intake & Output 01/08/17 01/09/17 01/10/17 01/11/17 23:59 23:59 23:59 23:59 Intake Total 3317 1411 1288 220 Output Total 3400 0129 249 9816 Balance -83 -289 438 -1280 Weight 138 lb 9 oz 137 lb 9.095 oz 140 lb 7 oz 138 lb 1 oz Gen: NAD at rest Heart: RRR Lung: decreased breath sounds at the bases Abd: soft, nontender Ext: no edema CBC, BMP 01/11/17 05:05 01/11/17 05:05 Active Medications Acetaminophen (Tylenol -) 650 mg PO Q4H PRN PRN Reason: FEVER OR PAIN Amlodipine Besylate (Norvasc -) 5 mg PO DAILY [facility] Last Admin: 01/11/17 09:45 Dose: 5 mg Atorvastatin Calcium (Lipitor -) 40 mg PO HS [facility] Last Admin: 01/10/17 22:55 Dose: 40 mg Docusate Sodium (Colace -) 100 mg PO BID [facility] Last Admin: 01/11/17 09:45 Dose: 100 mg Heparin Sodium (Porcine) (Heparin -) 1,000 unit IVPUSH PRN PRN PRN Reason: Heparin Last Admin: 01/11/17 10:44 Dose: 1,000 unit Heparin Sodium (Porcine) (Heparin -) 5,000 unit IVPUSH PRN PRN PRN Reason: Heparin Last Admin: 01/10/17 09:20 Dose: 5,000 unit Heparin Sodium (Porcine) 25, (000 unit/ Sodium Chloride) 500 mls @ 16 mls/hr IV TITR MINAL; 800 UNIT/HR PRN Reason: Protocol Last Titration: 01/11/17 10:43 Dose: 600 unit/hr Sodium Chloride (Normal Saline -) 1,000 mls @ 10 mls/hr IV ASDIR [facility] Last Admin: 01/11/17 09:37 Dose: Not Given Insulin Aspart (Novolog Vial Sliding Scale -) 1 vial SQ ACHS MINAL PRN Reason: Protocol Last Admin: 01/11/17 06:49 Dose: Not Given Mirtazapine (Remeron -) 15 mg PO HS [facility] Last Admin: 01/10/17 22:55 Dose: 15 mg Pantoprazole Sodium (Protonix -) 40 mg PO DAILY [facility] Last Admin: 01/11/17 09:45 Dose: 40 mg Polyethylene Glycol (Miralax (For Daily Use) -) 17 gm PO DAILY PRN PRN Reason: CONSTIPATION Last Admin: 01/08/17 17:38 Dose: 17 grams ASSESSMENT AND PLAN: Anemia s/p PRBC transfusions DVT h/o CVA Hyponatremia Hyperkalemia DM HTN - monitor H/H - for IVC filter placement - anticoagulation per hematology - PO as tolerated - IVF - can monitor on floor
--- NOTE | 2017-01-11 13:04 | PN ---
Physical Exam: SUBJECTIVE: Patient was sleepy to answer questions but follows command and open eyes upon arousal. No complaints and no acute event overnight. OBJECTIVE: Vital Signs Period Temp Pulse Resp BP Sys/Gary Pulse Ox Last 24 Hr 97.6 F-98.4 F 52-70 14-18 109-146/66-86 100-100 GENERAL: AAO x 3, sleepy, reluctant to engage but follows commands, in no acute distress EYES: PERLLA LUNGS: Poor air entry bilaterally HEART: RRR, S1, S2 without murmur, rub or gallop. ABDOMEN: Soft, nontender, nondistended, normoactive bowel sounds, no guarding, no rebound EXTREMITIES: no edema. CBCD WBC 6.7 K/mm3 (4.0-10.0) 01/11/17 05:05 RBC 4.30 M/mm3 (3.60-5.2) 01/11/17 05:05 Hgb 12.0 GM/dL (10.7-15.3) 01/11/17 05:05 Hct 35.2 % (32.4-45.2) 01/11/17 05:05 MCV 81.9 fl (80-96) 01/11/17 05:05 MCHC 34.0 g/dl (32.0-36.0) 01/11/17 05:05 RDW 17.6 % (11.6-15.6) H 01/11/17 05:05 Plt Count 234 K/MM3 (134-434) 01/11/17 05:05 MPV 7.6 fl (7.5-11.1) 01/11/17 05:05 CMP Sodium 129 mmol/L (136-145) L 01/11/17 05:05 Potassium 4.1 mmol/L (3.5-5.1) 01/11/17 05:05 Chloride 95 mmol/L (98-107) L 01/11/17 05:05 Carbon Dioxide 25 mmol/L (21-32) 01/11/17 05:05 Anion Gap 9 (8-16) 01/11/17 05:05 BUN 7 mg/dL (7-18) D 01/11/17 05:05 Creatinine 0.4 mg/dL (0.55-1.02) L D 01/11/17 05:05 Creat Clearance w eGFR > 60 (>60) 01/09/17 05:20 Calcium 8.9 mg/dL (8.5-10.1) 01/11/17 05:05 Total Bilirubin 0.8 mg/dL (0.2-1.0) D 01/09/17 05:20 AST 89 U/L (15-37) H D 01/09/17 05:20 ALT 68 U/L (12-78) D 01/09/17 05:20 Alkaline Phosphatase 80 U/L (45-117) D 01/09/17 05:20 Total Protein 6.4 g/dl (6.4-8.2) 01/09/17 05:20 Albumin 3.1 g/dl (3.4-5.0) L 01/09/17 05:20 Intake & Output 01/08/17 01/09/17 01/10/17 01/11/17 23:59 23:59 23:59 23:59 Intake Total 3317 1411 1288 220 Output Total 3400 1270 418 7594 Balance -83 -289 438 -1280 Weight 62.851 kg 62.4 kg 63.701 kg 62.624 kg Active Medications Generic Name Dose Route Start Last Admin Trade Name Freq PRN Reason Stop Dose Admin Acetaminophen 650 mg 01/06/17 14:21 Tylenol - PO Q4H PRN FEVER OR PAIN Amlodipine Besylate 5 mg 01/07/17 10:00 01/11/17 09:45 Norvasc - PO 5 mg DAILY [facility]AL Administration Atorvastatin Calcium 40 mg 01/06/17 22:00 01/10/17 22:55 Lipitor - PO 40 mg HS MINAL Administration Docusate Sodium 100 mg 01/08/17 10:00 01/11/17 09:45 Colace - PO 100 mg BID [facility]AL Administration Heparin Sodium (Porcine) 1,000 unit 01/07/17 11:36 01/11/17 10:44 Heparin - IVPUSH 1,000 unit PRN PRN Administration Heparin Heparin Sodium (Porcine) 5,000 unit 01/07/17 11:36 01/10/17 09:20 Heparin - IVPUSH 5,000 unit PRN PRN Administration Heparin Heparin Sodium (Porcine) 25, 500 mls @ 16 mls/hr 01/07/17 12:00 01/11/17 11:59 000 unit/ Sodium Chloride IV Not Given TITR [facility] Protocol 800 UNIT/HR Sodium Chloride 1,000 mls @ 10 mls/hr 01/09/17 18:30 01/11/17 09:37 Normal Saline - IV Not Given ASDIR [facility] Insulin Aspart 1 vial 01/06/17 16:30 01/11/17 11:59 Novolog Vial Sliding Scale - SQ Not Given ACHS [facility] Protocol Magnesium Oxide 400 mg 01/11/17 12:15 Mag-Ox - PO BID [facility] Mirtazapine 15 mg 01/06/17 22:00 01/10/17 22:55 Remeron - PO 15 mg HS [facility]AL Administration Pantoprazole Sodium 40 mg 01/09/17 10:00 01/11/17 09:45 Protonix - PO 40 mg DAILY [facility] Administration Polyethylene Glycol 17 gm 01/08/17 06:51 01/08/17 17:38 Miralax (For Daily Use) - PO 17 grams DAILY PRN Administration CONSTIPATION Microbiology 01/06/17 09:48 Blood Culture - Preliminary Blood - Peripheral Venous Gram Positive Cocci Gram Positive Cocci#2 01/10/17 08:05 Blood Culture - Preliminary Blood - Peripheral Venous NO GROWTH OBTAINED AFTER 24 HOURS, INCUBATION TO CONTINUE FOR 4 DAYS. 01/10/17 08:05 Blood Culture - Preliminary Blood - Peripheral Venous NO GROWTH OBTAINED AFTER 24 HOURS, INCUBATION TO CONTINUE FOR 4 DAYS. 01/06/17 09:45 Blood Culture - Final Blood - Peripheral Venous Staph Capitis Subsp Capitis ASSESSMENT/PLAN: 66 yo F with h/o CVA/TIA 3 years ago, DM, HTN, HLD, unintentional weight loss, anemia and constipation admitted to the ICU for acute anemia and bilateral DVT. Vascular: DVT - Bilateral - PTT subtherapeutic * Cont. heparin gtt - Awaiting IVC filter - Monitor vitals - Supplement O2 maintain sat > 92% Hemonc: Acute anemia - In the setting of chronic Fe deficiency anemia - Resolved * No hematuria or melena reported - Cont. to monitor H&H FEN - Gentle fluid @ 10cc/hr - Hyponatremia, encourage PO intake and monitor for now - Soft diet Prophylaxis - DVT: heparin gtt - GI: on protonix PO Dispo - Transfer to med-surg - Awaiting for IVC filter placement Visit type - Emergency Visit Emergency Visit: No - New Patient This patient is new to me today: Yes Date on this admission: 01/11/17 - Critical Care Critical Care patient: Yes Total Critical Care Time (in minutes): 35 Critical Care Statement: The care of this patient involved high complexity decision making to prevent further life threatening deterioration of the patient 's condition and/or to evalute & treat vital organ system(s) failure or risk of failure.
--- NOTE | 2017-01-11 16:03 | PN ---
Progress Note, Physician Chief Complaint: ANEMIA BLLE DVT History of Present Illness: Comfortable in bed, NAD, EGD was negative for any bleeding. - Current Medication List Current Medications: Active Medications Acetaminophen (Tylenol -) 650 mg PO Q4H PRN PRN Reason: FEVER OR PAIN Amlodipine Besylate (Norvasc -) 5 mg PO DAILY [facility] Last Admin: 01/11/17 09:45 Dose: 5 mg Atorvastatin Calcium (Lipitor -) 40 mg PO HS [facility] Last Admin: 01/10/17 22:55 Dose: 40 mg Docusate Sodium (Colace -) 100 mg PO BID [facility] Last Admin: 01/11/17 09:45 Dose: 100 mg Heparin Sodium (Porcine) (Heparin -) 1,000 unit IVPUSH PRN PRN PRN Reason: Heparin Last Admin: 01/11/17 10:44 Dose: 1,000 unit Heparin Sodium (Porcine) (Heparin -) 5,000 unit IVPUSH PRN PRN PRN Reason: Heparin Last Admin: 01/10/17 09:20 Dose: 5,000 unit Heparin Sodium (Porcine) 25, (000 unit/ Sodium Chloride) 500 mls @ 16 mls/hr IV TITR [facility]; 800 UNIT/HR PRN Reason: Protocol Last Admin: 01/11/17 11:59 Dose: Not Given Sodium Chloride (Normal Saline -) 1,000 mls @ 10 mls/hr IV ASDIR [facility] Last Admin: 01/11/17 09:37 Dose: Not Given Insulin Aspart (Novolog Vial Sliding Scale -) 1 vial SQ ACHS [facility] PRN Reason: Protocol Last Admin: 01/11/17 11:59 Dose: Not Given Magnesium Oxide (Mag-Ox -) 400 mg PO BID [facility] Mirtazapine (Remeron -) 15 mg PO HS [facility] Last Admin: 01/10/17 22:55 Dose: 15 mg Pantoprazole Sodium (Protonix -) 40 mg PO DAILY [facility] Last Admin: 01/11/17 09:45 Dose: 40 mg Polyethylene Glycol (Miralax (For Daily Use) -) 17 gm PO DAILY PRN PRN Reason: CONSTIPATION Last Admin: 01/08/17 17:38 Dose: 17 grams - Objective Vital Signs: Vital Signs Temperature 98 F 01/11/17 12:00 Pulse Rate 62 01/11/17 12:00 Respiratory Rate 14 01/11/17 12:00 Blood Pressure 133/79 01/11/17 12:00 O2 Sat by Pulse Oximetry (%) 100 01/11/17 09:00 Constitutional: Yes: Well Nourished, No Distress, Calm Cardiovascular: Yes: Regular Rate and Rhythm Respiratory: Yes: Regular Edema: No Peripheral Pulses WNL: Yes Neurological: Yes: Alert Labs: CBC, BMP 01/11/17 05:05 01/11/17 05:05 INR, PTT INR 1.15 (0.82-1.09) H 01/06/17 21:40 Fibrinogen 397.0 mg/dL (238-498) 01/06/17 21:40 Problem List - Problems (1) Anemia Assessment/Plan: -true GLENYS -EGD negative for bleeding. -h/h stable at the moment -continue to monitor H/H Code(s): D64.9 - ANEMIA, UNSPECIFIED Qualifiers: Anemia type: other cause Other causes of anemia: other cause, not classified Qualified Code(s): D64.89 - Other specified anemias (2) DVT (deep venous thrombosis) Assessment/Plan: -seen by hematology and vascular -IVC pfilter placement -until then continue anticoagulation -monitor H/H Code(s): I82.409 - ACUTE EMBOLISM AND THOMBOS UNSP DEEP VN UNSP LOWER EXTREMITY Assessment/Plan -re-evaluation by vascular -monitor H/H -IVC filter -continue anticoagulation -OK to transfer to floor
[2017-01-11] MEDS ORDERED: IRON SUCROSE INJECTION 200 MG in SODIUM CHLORIDE 240 ML IVPB ONE (16:30)
--- NOTE | 2017-01-11 16:31 | PN ---
Progress Note (short form) - Note Progress Note: PAtient seen and examined Feels OK No complaints Last Vital Signs Temp Pulse Resp BP Pulse Ox 98 F 62 14 133/79 100 01/11/17 12:00 01/11/17 12:00 01/11/17 12:00 01/11/17 12:00 01/11/17 09:00 Cor: RSR, No murmurs, No gallops Lungs: Clear to P&A Abd: Soft, Normal bowel sounds, No organomegaly Ext:No significant edema Abnormal Lab Results 01/11/17 01/11/17 01/11/17 05:05 05:05 09:33 RDW 17.6 H PTT (Actin FS) 48.2 H D Sodium 129 L Chloride 95 L Creatinine 0.4 L D Random Glucose 68 L Magnesium 1.6 L Home Medication List Medication Instructions Recorded Confirmed Type Amlodipine Besylate 5 mg PO DAILY 09/20/15 01/05/17 History Ergocalciferol (Vitamin D2) 50,000 unit PO WEEKLY 09/20/15 01/05/17 History [Vitamin D2] Ferrous Gluconate [Fergon -] 324 mg PO TID 09/20/15 01/05/17 History Eastham-3 Fatty Acids [Eastham-3] 1,000 mg PO QID 09/20/15 01/05/17 History Ascorbic Acid [Vitamin C] 500 mg PO DAILY 01/05/17 01/05/17 History Atorvastatin Ca [Lipitor] 40 mg PO HS 01/05/17 01/05/17 History Lisinopril [Zestril] 20 mg PO DAILY 01/05/17 01/05/17 History Metformin HCl 500 mg PO BID 01/05/17 01/05/17 History Mirtazapine [Remeron -] 15 mg PO HS 01/05/17 01/05/17 History Active Medications Generic Name Dose Route Start Last Admin Trade Name Freq PRN Reason Stop Dose Admin Acetaminophen 650 mg 01/06/17 14:21 Tylenol - PO Q4H PRN FEVER OR PAIN Amlodipine Besylate 5 mg 01/07/17 10:00 01/11/17 09:45 Norvasc - PO 5 mg DAILY [facility]AL Administration Atorvastatin Calcium 40 mg 01/06/17 22:00 01/10/17 22:55 Lipitor - PO 40 mg HS MINAL Administration Docusate Sodium 100 mg 01/08/17 10:00 01/11/17 09:45 Colace - PO 100 mg BID MINAL Administration Heparin Sodium (Porcine) 1,000 unit 01/07/17 11:36 01/11/17 10:44 Heparin - IVPUSH 1,000 unit PRN PRN Administration Heparin Heparin Sodium (Porcine) 5,000 unit 01/07/17 11:36 01/10/17 09:20 Heparin - IVPUSH 5,000 unit PRN PRN Administration Heparin Heparin Sodium (Porcine) 25, 500 mls @ 16 mls/hr 01/07/17 12:00 01/11/17 11:59 000 unit/ Sodium Chloride IV Not Given TITR [facility] Protocol 800 UNIT/HR Sodium Chloride 1,000 mls @ 10 mls/hr 01/09/17 18:30 01/11/17 09:37 Normal Saline - IV Not Given ASDIR [facility] Iron Sucrose 200 mg/ Sodium 250 mls @ 250 mls/hr 01/11/17 16:30 Chloride IVPB 01/11/17 17:29 ONCE ONE Insulin Aspart 1 vial 01/06/17 16:30 01/11/17 11:59 Novolog Vial Sliding Scale - SQ Not Given ACHS [facility] Protocol Magnesium Oxide 400 mg 01/11/17 12:15 Mag-Ox - PO BID MINAL Mirtazapine 15 mg 01/06/17 22:00 01/10/17 22:55 Remeron - PO 15 mg HS [facility] Administration Pantoprazole Sodium 40 mg 01/09/17 10:00 01/11/17 09:45 Protonix - PO 40 mg DAILY [facility] Administration Polyethylene Glycol 17 gm 01/08/17 06:51 01/08/17 17:38 Miralax (For Daily Use) - PO 17 grams DAILY PRN Administration CONSTIPATION A/P 66 yo F with a past medical history significant for CVA/TIA 3 years ago, DM, HTN , HLD, anemia and constipation who presents from [facility] with bilateral pedal edema as well as anemia, 6.6 and 20 HGB and Hematocrit and a sodium of 129. found to have B/L DVT . Seems like a chronic GI bleed No active bleeding EGD unrevealing may need colonoscopy CT a/p--no retroperitoneal bleed prominent left hydroureteronephrosis b/l DVT On heparin drip ? ivc filter Iron deficiency--agree with IV iron 200mg x 3days low sat 7% will discuss with GI ?? colonoscopy
[2017-01-11] MEDS: MAGNESIUM OXIDE 400 MG TABLET (FP) PO SCH ×2 (17:26→21:11)
--- NOTE | 2017-01-11 18:49 | PN ---
Progress Note (short form) - Note Progress Note: Vascular Surgery Pt seen and examined. EGD last week did not show bleed. H/H now stable. Still awaiting colonoscopy. Can place IVC filter on Wed so that there is no interruption in anticoagulation if pt gets colonoscopy. Pt is a risk of bleeding again, and is bed bound. Will place filter on wed morning. Ezekiel hernandez DO
[2017-01-11] MEDS ORDERED: ACETAMINOPHEN 325 MG TABLET (FP) PO PRN (18:55)
[2017-01-11] MEDS ORDERED: POLYETHYLENE GLYCOL 3350 119 GM BTL PO PRN (18:55)
[2017-01-11] MEDS ORDERED: HEPARIN NA (PORCINE) 5,000 UNITS/ML 1ML VIAL IVPUSH PRN ×4 (18:55)
[2017-01-11] MEDS: ATORVASTATIN CA 40 MG TABLET (FP) PO SCH (21:11)
[2017-01-11] MEDS: MIRTAZAPINE 15 MG TABLET (FP) PO SCH (21:11)
[2017-01-12] MEDS: INSULIN SLIDING SCALE (NOVOLOG) 1 VIAL SQ SCH ×4 (06:03→21:11)
[2017-01-12 06:18] LABS: BASOPHIL 0.7 % (0-2.0); EOSINOPHIL 1.7 % (0-4.5); MCH 28.1 pg (25.7-33.7); MCHC 34.3 g/dl (32.0-36.0); MEAN PLT VOLUME 7.8 fl (7.5-11.1); NEUTROPHILS 81.8 % (42.8-82.8); PLATELET COUNT 243 K/MM3 (134-434); RDW 18.3 % (11.6-15.6); WHITE BLOOD COUNT 9.1 K/mm3 (4.0-10.0)
[2017-01-12 06:47] LABS: ALK PHOS 109 U/L (45-117); ANION GAP 10 (8-16); BILIRUBIN,TOTAL 0.5 mg/dL (0.2-1.0); CALCIUM 8.6 mg/dL (8.5-10.1); CO2 25 mmol/L (21-32); CREATININE 0.6 mg/dL (0.55-1.02); GLUCOSE,RANDOM 96 mg/dL (74-106); SGOT/AST 128 U/L (15-37); SGPT/ALT 138 U/L (12-78); TOT PROT 6.1 g/dl (6.4-8.2)
--- NOTE | 2017-01-12 08:23 | PN ---
Progress Note, Physician History of Present Illness: IN BED NO COMPLAINTS - Current Medication List Current Medications: Active Medications Acetaminophen (Tylenol -) 650 mg PO Q4H PRN PRN Reason: FEVER OR PAIN Last Admin: 01/11/17 22:36 Dose: 650 mg Amlodipine Besylate (Norvasc -) 5 mg PO DAILY [facility] Atorvastatin Calcium (Lipitor -) 40 mg PO HS [facility] Last Admin: 01/11/17 21:11 Dose: 40 mg Docusate Sodium (Colace -) 100 mg PO BID [facility] Last Admin: 01/11/17 21:11 Dose: 100 mg Heparin Sodium (Porcine) (Heparin -) 1,000 unit IVPUSH PRN PRN PRN Reason: Heparin Heparin Sodium (Porcine) (Heparin -) 5,000 unit IVPUSH PRN PRN PRN Reason: Heparin Heparin Sodium (Porcine) 25, (000 unit/ Sodium Chloride) 500 mls @ 16 mls/hr IV TITR [facility]; 800 UNIT/HR PRN Reason: Protocol Last Admin: 01/11/17 18:55 Dose: 12 mls/hr Sodium Chloride (Normal Saline -) 1,000 mls @ 10 mls/hr IV ASDIR [facility] Last Admin: 01/11/17 19:00 Dose: 10 mls/hr Insulin Aspart (Novolog Vial Sliding Scale -) 1 vial SQ ACHS [facility] PRN Reason: Protocol Last Admin: 01/12/17 06:03 Dose: Not Given Magnesium Oxide (Mag-Ox -) 400 mg PO BID [facility] Last Admin: 01/11/17 21:11 Dose: 400 mg Mirtazapine (Remeron -) [address] [facility] Last Admin: 01/11/17 21:11 Dose: 15 mg Pantoprazole Sodium (Protonix -) 40 mg PO DAILY [facility] Polyethylene Glycol (Miralax (For Daily Use) -) 17 gm PO DAILY PRN PRN Reason: CONSTIPATION - Objective Vital Signs: Vital Signs Temperature 97.5 F L 01/12/17 06:00 Pulse Rate 64 01/12/17 08:00 Respiratory Rate 18 01/12/17 08:00 Blood Pressure 101/71 01/12/17 08:00 O2 Sat by Pulse Oximetry (%) 100 01/11/17 20:13 Cardiovascular: Yes: S1, S2 Respiratory: Yes: Regular, CTA Bilaterally Gastrointestinal: Yes: Normal Bowel Sounds, Soft Labs: CBC, BMP 01/12/17 05:15 01/12/17 05:15 INR, PTT INR 1.15 (0.82-1.09) H 01/06/17 21:40 Fibrinogen 397.0 mg/dL (238-498) 01/06/17 21:40 Problem List - Problems (1) Anemia Assessment/Plan: S/P PRBC MONITOR LABS PPI GI CONSULT COLONOSCOPY--GI F/U will need IVC filter Gs/p egd no bleeding noted on protonix hemolysis work up occult blood Code(s): D64.9 - ANEMIA, UNSPECIFIED Qualifiers: Anemia type: other cause Other causes of anemia: other cause, not classified Qualified Code(s): D64.89 - Other specified anemias (2) GI bleed Assessment/Plan: S/P PRBC MONITOR LABS PPI GI CONSULT---S/P EGD with no source of bleeding noted--colon in am? On AC with no evidence of new bleed and stable Hgb Continue AC Code(s): K92.2 - GASTROINTESTINAL HEMORRHAGE, UNSPECIFIED Qualifiers: GI bleed type/associated pathology: unspecified gastrointestinal hemorrhage type Qualified Code(s): K92.2 - Gastrointestinal hemorrhage, unspecified (3) HTN (hypertension) Assessment/Plan: MONITOR Code(s): I10 - ESSENTIAL (PRIMARY) HYPERTENSION (4) Bradycardia Code(s): R00.1 - BRADYCARDIA, UNSPECIFIED (5) Change in mental status Assessment/Plan: CT OF HEAD NEURO CONSULT CULTURES AWAIT AM LABS Code(s): R41.82 - ALTERED MENTAL STATUS, UNSPECIFIED (6) Gait abnormality Assessment/Plan: PT EVAL Code(s): R26.9 - UNSPECIFIED ABNORMALITIES OF GAIT AND MOBILITY (7) DVT (deep venous thrombosis) Assessment/Plan: AC WITH CLOSE MONITORING IVC FILTER Code(s): I82.409 - ACUTE EMBOLISM AND THOMBOS UNSP DEEP VN UNSP LOWER EXTREMITY
[2017-01-12] MEDS: amLODIPine BESYLATE 5 MG TABLET (FP) PO SCH (09:22)
[2017-01-12] MEDS: DOCUSATE SODIUM 100 MG CAPSULE (FP) PO SCH ×2 (09:22→21:11)
[2017-01-12] MEDS: PANTOPRAZOLE 40 MG TABLET (FP) PO SCH (09:22)
[2017-01-12] MEDS: MAGNESIUM OXIDE 400 MG TABLET (FP) PO SCH ×2 (09:23→21:11)
--- NOTE | 2017-01-12 09:37 | PN ---
Progress Note (short form) - Note Progress Note: PULMONARY/CCM Pt seen and examined in the ICU. Denies shortness of breath or chest pain. Awaiting IVC filter placement. Last Vital Signs Temp Pulse Resp BP Pulse Ox 97.5 F L 68 12 101/71 100 01/12/17 06:00 01/12/17 08:36 01/12/17 08:36 01/12/17 08:36 01/11/17 20:13 Intake & Output 01/09/17 01/10/17 01/11/17 01/12/17 23:59 23:59 23:59 23:59 Intake Total 1411 1288 1814 384 Output Total 6394 869 0705 Balance -289 438 314 384 Weight 137 lb 9.095 oz 140 lb 7 oz 138 lb 1 oz 135 lb 9.6 oz Gen: NAD at rest Heart: RRR Lung: decreased breath sounds at the bases Abd: soft, nontender Ext: no edema CBC, BMP 01/12/17 05:15 01/12/17 05:15 Active Medications Acetaminophen (Tylenol -) 650 mg PO Q4H PRN PRN Reason: FEVER OR PAIN Last Admin: 01/11/17 22:36 Dose: 650 mg Amlodipine Besylate (Norvasc -) 5 mg PO DAILY [facility] Last Admin: 01/12/17 09:22 Dose: 5 mg Atorvastatin Calcium (Lipitor -) 40 mg PO HS [facility] Last Admin: 01/11/17 21:11 Dose: 40 mg Docusate Sodium (Colace -) 100 mg PO BID [facility] Last Admin: 01/12/17 09:22 Dose: 100 mg Heparin Sodium (Porcine) (Heparin -) 1,000 unit IVPUSH PRN PRN PRN Reason: Heparin Heparin Sodium (Porcine) (Heparin -) 5,000 unit IVPUSH PRN PRN PRN Reason: Heparin Heparin Sodium (Porcine) 25, (000 unit/ Sodium Chloride) 500 mls @ 16 mls/hr IV TITR [facility]; 800 UNIT/HR PRN Reason: Protocol Last Admin: 01/11/17 18:55 Dose: 12 mls/hr Sodium Chloride (Normal Saline -) 1,000 mls @ 10 mls/hr IV ASDIR [facility] Last Admin: 01/11/17 19:00 Dose: 10 mls/hr Insulin Aspart (Novolog Vial Sliding Scale -) 1 vial SQ ACHS [facility] PRN Reason: Protocol Last Admin: 01/12/17 06:03 Dose: Not Given Magnesium Oxide (Mag-Ox -) 400 mg PO BID [facility] Last Admin: 01/12/17 09:23 Dose: 400 mg Mirtazapine (Remeron -) 15 mg PO HS [facility] Last Admin: 01/11/17 21:11 Dose: 15 mg Pantoprazole Sodium (Protonix -) 40 mg PO DAILY [facility] Last Admin: 01/12/17 09:22 Dose: 40 mg Polyethylene Glycol (Miralax (For Daily Use) -) 17 gm PO DAILY PRN PRN Reason: CONSTIPATION A/P Anemia s/p PRBC transfusions DVT h/o CVA Hyponatremia Hyperkalemia DM HTN - monitor H/H - for IVC filter placement - anticoagulation per hematology - PO as tolerated - IVF - can monitor on floor
[2017-01-12] MEDS: HEPARIN - 25,000 UNIT in SODIUM CHLORIDE 495 ML IV SCH (12:00)
[2017-01-12] MEDS: SODIUM CHLORIDE 1,000 ML IV SCH (19:00)
[2017-01-12] MEDS: ATORVASTATIN CA 40 MG TABLET (FP) PO SCH (21:11)
[2017-01-12] MEDS: MIRTAZAPINE 15 MG TABLET (FP) PO SCH (21:11)
[2017-01-13] MEDS: INSULIN SLIDING SCALE (NOVOLOG) 1 VIAL SQ SCH ×4 (06:18→22:09)
[2017-01-13 06:46] LABS: BASOPHIL 1.2 % (0-2.0); EOSINOPHIL 5.7 % (0-4.5); MCH 27.9 pg (25.7-33.7); MCHC 33.7 g/dl (32.0-36.0); MEAN CELL VOLUME 82.9 fl (80-96); MEAN PLT VOLUME 7.3 fl (7.5-11.1); NEUTROPHILS 56.6 % (42.8-82.8); PLATELET COUNT 236 K/MM3 (134-434); RDW 18.5 % (11.6-15.6); WHITE BLOOD COUNT 4.5 K/mm3 (4.0-10.0)
[2017-01-13 07:10] LABS: ALBUMIN 2.9 g/dl (3.4-5.0); ANION GAP 8 (8-16); CALCIUM 8.6 mg/dL (8.5-10.1); CO2 26 mmol/L (21-32); GLUCOSE,RANDOM 76 mg/dL (74-106)
[2017-01-13 07:13] LABS: ALK PHOS 107 U/L (45-117); BILIRUBIN,TOTAL 0.3 mg/dL (0.2-1.0); CREATININE 0.6 mg/dL (0.55-1.02); SGOT/AST 133 U/L (15-37); SGPT/ALT 160 U/L (12-78); TOT PROT 6.1 g/dl (6.4-8.2)
[2017-01-13] MEDS ORDERED: PT OWN MED DRAWER 7, Y5N ONE (09:24)
[2017-01-13] MEDS: DOCUSATE SODIUM 100 MG CAPSULE (FP) PO SCH ×2 (09:30→21:59)
[2017-01-13] MEDS: MAGNESIUM OXIDE 400 MG TABLET (FP) PO SCH ×2 (09:30→21:59)
[2017-01-13] MEDS: amLODIPine BESYLATE 5 MG TABLET (FP) PO SCH (09:30)
[2017-01-13] MEDS: PANTOPRAZOLE 40 MG TABLET (FP) PO SCH (09:30)
[2017-01-13] MEDS ORDERED: LIDOCAINE HCL 1%, 10 MG/ML (20ML VIAL) ONE (11:51)
[2017-01-13] MEDS ORDERED: HEPARIN NA (PORCINE) 5,000 UNITS/ML 1ML VIAL ONE (11:51)
--- NOTE | 2017-01-13 11:54 | PN ---
Progress Note (short form) - Note Progress Note: Patient seen and examined Feels OK No complaints Vital Signs Period Temp Pulse Resp BP Sys/Gary Pulse Ox Last 24 Hr 97.6 F-98.1 F 67-86 15-18 93-156/60-90 97-100 Cor: RSR, No murmurs, No gallops Lungs: Clear to P&A Abd: Soft, Normal bowel sounds, No organomegaly Ext:No significant edema Abnormal Lab Results 01/12/17 01/13/17 01/13/17 18:30 06:20 06:20 RDW 18.5 H MPV 7.3 L Eosinophils % 5.7 H D PTT (Actin FS) 60.7 H 63.5 H Sodium AST ALT Total Protein Albumin 01/13/17 06:20 RDW MPV Eosinophils % PTT (Actin FS) Sodium 134 L AST 133 H ALT 160 H Total Protein 6.1 L Albumin 2.9 L Active Medications Active Medications Generic Name Dose Route Start Last Admin Trade Name Freq PRN Reason Stop Dose Admin Acetaminophen 650 mg 01/11/17 18:55 01/11/17 22:36 Tylenol - PO 650 mg Q4H PRN Administration FEVER OR PAIN Amlodipine Besylate 5 mg 01/12/17 10:00 01/13/17 09:30 Norvasc - PO 5 mg DAILY [facility] Administration Atorvastatin Calcium 40 mg 01/11/17 22:00 01/12/17 21:11 Lipitor - PO 40 mg HS [facility] Administration Docusate Sodium 100 mg 01/11/17 22:00 01/13/17 09:30 Colace - PO Not Given BID [facility] Heparin Sodium (Porcine) 1,000 unit 01/11/17 18:55 Heparin - IVPUSH PRN PRN Heparin Heparin Sodium (Porcine) 5,000 unit 01/11/17 18:55 Heparin - IVPUSH PRN PRN Heparin Heparin Sodium (Porcine) 25, 500 mls @ 16 mls/hr 01/11/17 18:55 01/12/17 12:00 000 unit/ Sodium Chloride IV 10 mls/hr TITR [facility] Administration Protocol 800 UNIT/HR Sodium Chloride 1,000 mls @ 10 mls/hr 01/11/17 18:55 01/12/17 19:00 Normal Saline - IV 10 mls/hr ASDIR [facility] Administration Insulin Aspart 1 vial 01/11/17 22:00 01/13/17 06:18 Novolog Vial Sliding Scale - SQ Not Given ACHS [facility] Protocol Magnesium Oxide 400 mg 01/11/17 12:15 01/13/17 09:30 Mag-Ox - PO Not Given BID [facility] Mirtazapine 15 mg 01/11/17 22:00 01/12/17 21:11 Remeron - PO 15 mg HS [facility] Administration Pantoprazole Sodium 40 mg 01/12/17 10:00 01/13/17 09:30 Protonix - PO Not Given DAILY [facility] Polyethylene Glycol 17 gm 01/11/17 18:55 Miralax (For Daily Use) - PO DAILY PRN CONSTIPATION A/P 66 yo F with a past medical history significant for CVA/TIA 3 years ago, DM, HTN , HLD, anemia and constipation who presents from [facility] with bilateral pedal edema as well as anemia, 6.6 and 20 HGB and Hematocrit and a sodium of 129. found to have B/L DVT . Seems like a chronic GI bleed No active bleeding, now with normal hemoglobin EGD unrevealing may need colonoscopy CT a/p--no retroperitoneal bleed prominent left hydroureteronephrosis b/l DVT On heparin drip, titrate for PTT will consider switching to coumadin, bridge to coumadin s/p ivc filter Iron deficiency- IV iron 200mg x 3days low sat 7% GI ?? colonoscopy
[2017-01-13] MEDS ORDERED: ceFAZolin SODIUM 1 GM VIAL IVPB ONE (12:14)
[2017-01-13] MEDS ORDERED: MIDAZOLAM HCL 2 MG/2 ML SINGLE DOSE VIAL ONE (12:14)
[2017-01-13] MEDS ORDERED: KETOROLAC TROMETHAMINE 30 MG/1 ML VIAL ONE (12:14)
[2017-01-13] MEDS ORDERED: ceFAZolin SODIUM 1 GM VIAL ONE (12:14)
[2017-01-13] MEDS ORDERED: DEXAMETHASONE SOD PHOSPHATE 4 MG/1 ML VIAL ONE (12:14)
[2017-01-13] MEDS ORDERED: LIDOCAINE HCL 1%, 10 MG/ML (20ML VIAL) IJ ONE (12:21)
[2017-01-13] MEDS ORDERED: ONDANSETRON 4 MG/2 ML VIAL IVPUSH PRN (12:43)
[2017-01-13] MEDS ORDERED: PROMETHAZINE HCL 25 MG/1 ML VIAL IVPUSH PRN (12:43)
[2017-01-13] MEDS ORDERED: oxyCODONE HCL 5 MG TABLET PO PRN (12:43)
--- NOTE | 2017-01-13 12:44 | OP ---
Operative Note - Note: Operative Date: 01/13/17 Pre-Operative Diagnosis: Bl DVT Operation: Insertion of IVC filter, with venogram Post-Operative Diagnosis: Same as Pre-op Surgeon: Ezekiel Andrew Anesthesia: Fractional Estimated Blood Loss (mls): 5 Operative Report Dictated: Yes
[2017-01-13] MEDS ORDERED: SODIUM CHLORIDE 1,000 ML IV SCH (12:55)
[2017-01-13] MEDS ORDERED: POLYETHYLENE GLYCOL 3350 119 GM BTL PO PRN (12:55)
[2017-01-13] MEDS ORDERED: ACETAMINOPHEN 325 MG TABLET (FP) PO PRN (12:55)
[2017-01-13] MEDS ORDERED: HEPARIN NA (PORCINE) 5,000 UNITS/ML 1ML VIAL IVPUSH PRN ×2 (13:03)
--- NOTE | 2017-01-13 13:22 | OP ---
DATE OF OPERATION: 01/13/2017 PREOPERATIVE DIAGNOSIS: Bilateral lower extremity deep venous thrombosis with gastrointestinal bleed. POSTOPERATIVE DIAGNOSIS: Bilateral lower extremity deep venous thrombosis with gastrointestinal bleed. PROCEDURE PERFORMED: Insertion of inferior vena cava filter and vena cavogram. SURGEON: Ezekiel See DO ANESTHESIA: Fractional. BLOOD LOSS: 5 mL. INDICATIONS: The patient is a 66-year-old female who comes into the hospital, who has bilateral lower extremity DVTs. She was also found to have low hemoglobin and hematocrit, and was worked with an EGD. With bilateral lower extremity DVTs and having this question of GI bleed, and she still needs a colonoscopy to rule out, it was felt that they could not anticoagulated her, and thus the patient needs an IVC filter. The patient's family was consented for the procedure, understanding all risks, benefits and alternatives, and the patient was then taken to the operating room. DESCRIPTION OF PROCEDURE: Once in the operating room, the patient was laid on the operating table in the supine manner. The area of the right groin was prepped and draped in a sterile surgical manner. We then injected 10 mL of lidocaine 1% over the right common femoral vein. We then took our micropuncture needle and punctured the right common femoral vein. A micropuncture wire was inserted. A micropuncture sheath was inserted, and a 0.035 floppy guidewire was inserted into the inferior vena cava under fluoroscopy. We then went ahead and placed our IVC filter sheath up to L3. We then shot a vena cavogram via the sheath, showing that the left and right renal veins come off at L1 and there was no clot there. We then loaded the filter into the sheath and the filter was deployed between L2 and L3. Completion vena cavogram via hand injection showed that the filter was in place. There was no migration of the filter. There was no extravasation of contrast. Bilateral renal veins were patent. We removed the sheath and pressure was held on the right groin for 5 minutes, until there was no more bleeding. The area was wet and dried, and Dermabond was placed. The patient tolerated the procedure with no complication. The patient was transferred to the PACU in stable condition. EZEKIEL SEE DO [id number]
--- NOTE | 2017-01-13 17:16 | PN ---
Progress Note, Physician Chief Complaint: ANEMIA BLLE DVT History of Present Illness: Comfortable in bed, NAD, s/p IVC filter today - Current Medication List Current Medications: Active Medications Acetaminophen (Tylenol -) 650 mg PO Q4H PRN PRN Reason: FEVER OR PAIN Amlodipine Besylate (Norvasc -) 5 mg PO DAILY [facility] Atorvastatin Calcium (Lipitor -) 40 mg PO HS [facility] Docusate Sodium (Colace -) 100 mg PO BID [facility] Fentanyl (Sublimaze Injection -) 25 mcg IVPUSH [id number] PRN PRN Reason: PAIN Stop: 01/16/17 12:44 Heparin Sodium (Porcine) (Heparin -) 5,000 unit IVPUSH PRN PRN PRN Reason: Heparin Heparin Sodium (Porcine) (Heparin -) 1,000 unit IVPUSH PRN PRN PRN Reason: Heparin Heparin Sodium (Porcine) (Heparin -) 5,000 unit IVPUSH PRN PRN PRN Reason: Heparin Sodium Chloride (Normal Saline -) 1,000 mls @ 10 mls/hr IV ASDIR [facility] Last Admin: 01/13/17 14:30 Dose: 0 mls Heparin Sodium (Porcine) 25, (000 unit/ Sodium Chloride) 500 mls @ 16 mls/hr IV TITR MINAL; 800 UNIT/HR PRN Reason: Protocol Insulin Aspart (Novolog Vial Sliding Scale -) 1 vial SQ ACHS [facility] PRN Reason: Protocol Magnesium Oxide (Mag-Ox -) 400 mg PO BID [facility] Mirtazapine (Remeron -) 15 mg PO HS [facility] Ondansetron HCl (Zofran Injection) 4 mg IVPUSH Q6H PRN PRN Reason: NAUSEA AND/OR VOMITING Stop: 01/13/17 18:44 Oxycodone HCl (Roxicodone -) 5 mg PO Q4H PRN PRN Reason: MILD PAIN Stop: 01/14/17 12:42 Pantoprazole Sodium (Protonix -) 40 mg PO DAILY [facility] Polyethylene Glycol (Miralax (For Daily Use) -) 17 gm PO DAILY PRN PRN Reason: CONSTIPATION Promethazine HCl (Phenergan Injection -) 12.5 mg IVPUSH Q6H PRN PRN Reason: NAUSEA Stop: 01/13/17 18:44 - Objective Vital Signs: Vital Signs Temperature 97.6 F 01/13/17 14:30 Pulse Rate 58 L 01/13/17 14:30 Respiratory Rate 12 01/13/17 14:30 Blood Pressure 132/75 01/13/17 14:30 O2 Sat by Pulse Oximetry (%) 100 01/13/17 14:30 Constitutional: Yes: Well Nourished, No Distress, Calm Cardiovascular: Yes: Regular Rate and Rhythm Respiratory: Yes: Regular Gastrointestinal: Yes: Normal Bowel Sounds Edema: No Peripheral Pulses WNL: Yes Neurological: Yes: Alert Labs: CBC, BMP 01/13/17 06:20 01/13/17 13:45 INR, PTT INR 1.15 (0.82-1.09) H 01/06/17 21:40 Fibrinogen 397.0 mg/dL (238-498) 01/06/17 21:40 Problem List - Problems (1) Anemia Assessment/Plan: -improved -h/h stable at the moment Code(s): D64.9 - ANEMIA, UNSPECIFIED Qualifiers: Anemia type: other cause Other causes of anemia: other cause, not classified Qualified Code(s): D64.89 - Other specified anemias (2) DVT (deep venous thrombosis) Assessment/Plan: -seen by hematology and vascular -S/P IVC filter placement -restart heparin drip Code(s): I82.409 - ACUTE EMBOLISM AND THOMBOS UNSP DEEP VN UNSP LOWER EXTREMITY Assessment/Plan -S/P IVC filter -continue anticoagulation -physical therapy
[2017-01-13] MEDS: HEPARIN - 25,000 UNIT in SODIUM CHLORIDE 495 ML IV SCH (18:24)
[2017-01-13] MEDS: ATORVASTATIN CA 40 MG TABLET (FP) PO SCH (21:59)
[2017-01-13] MEDS: MIRTAZAPINE 15 MG TABLET (FP) PO SCH (21:59)
[2017-01-14] MEDS: HEPARIN NA (PORCINE) 5,000 UNITS/ML 1ML VIAL IVPUSH PRN ×2 (01:11→11:17)
[2017-01-14] MEDS: INSULIN SLIDING SCALE (NOVOLOG) 1 VIAL SQ SCH ×4 (06:05→21:57)
[2017-01-14] MEDS: MAGNESIUM OXIDE 400 MG TABLET (FP) PO SCH ×2 (09:11→21:56)
[2017-01-14] MEDS: DOCUSATE SODIUM 100 MG CAPSULE (FP) PO SCH ×2 (09:11→21:57)
[2017-01-14] MEDS: PANTOPRAZOLE 40 MG TABLET (FP) PO SCH (09:11)
[2017-01-14] MEDS: amLODIPine BESYLATE 5 MG TABLET (FP) PO SCH (09:11)
--- NOTE | 2017-01-14 11:23 | PN ---
Progress Note, Physician Chief Complaint: ANEMIA BLLE DVT History of Present Illness: Comfortable in bed, NAD, s/p IVC filter. -on heparin drip, bridge with Coumadin, ordered -plan d/c back to [facility] once INR reached at least 1.5, therapeutic goal for INR is between 2-3. - Current Medication List Current Medications: Active Medications Acetaminophen (Tylenol -) 650 mg PO Q4H PRN PRN Reason: FEVER OR PAIN Amlodipine Besylate (Norvasc -) 5 mg PO DAILY [facility] Last Admin: 01/14/17 09:11 Dose: 5 mg Atorvastatin Calcium (Lipitor -) 40 mg PO HS [facility] Last Admin: 01/13/17 21:59 Dose: 40 mg Docusate Sodium (Colace -) 100 mg PO BID [facility] Last Admin: 01/14/17 09:11 Dose: 100 mg Fentanyl (Sublimaze Injection -) 25 mcg IVPUSH [id number] PRN PRN Reason: PAIN Stop: 01/16/17 12:44 Heparin Sodium (Porcine) (Heparin -) 5,000 unit IVPUSH PRN PRN PRN Reason: Heparin Last Admin: 01/14/17 01:11 Dose: 5,000 unit Heparin Sodium (Porcine) (Heparin -) 1,000 unit IVPUSH PRN PRN PRN Reason: Heparin Heparin Sodium (Porcine) (Heparin -) 5,000 unit IVPUSH PRN PRN PRN Reason: Heparin Heparin Sodium (Porcine) 25, (000 unit/ Sodium Chloride) 500 mls @ 16 mls/hr IV TITR MINAL; 800 UNIT/HR PRN Reason: Protocol Last Titration: 01/14/17 01:12 Dose: 950 unit/hr Insulin Aspart (Novolog Vial Sliding Scale -) 1 vial SQ ACHS [facility] PRN Reason: Protocol Last Admin: 01/14/17 06:05 Dose: Not Given Magnesium Oxide (Mag-Ox -) 400 mg PO BID [facility] Last Admin: 01/14/17 09:11 Dose: 400 mg Mirtazapine (Remeron -) 15 mg PO HS [facility] Last Admin: 01/13/17 21:59 Dose: 15 mg Oxycodone HCl (Roxicodone -) 5 mg PO Q4H PRN PRN Reason: MILD PAIN Stop: 01/14/17 12:42 Pantoprazole Sodium (Protonix -) 40 mg PO DAILY [facility] Last Admin: 01/14/17 09:11 Dose: 40 mg Polyethylene Glycol (Miralax (For Daily Use) -) 17 gm PO DAILY PRN PRN Reason: CONSTIPATION Warfarin Sodium (Coumadin -) 5 mg PO DAILY@1800 [facility] - Objective Vital Signs: Vital Signs Temperature 98.7 F 01/14/17 09:22 Pulse Rate 68 01/14/17 09:22 Respiratory Rate 20 01/14/17 09:22 Blood Pressure 138/84 01/14/17 09:22 O2 Sat by Pulse Oximetry (%) 100 01/13/17 22:00 Constitutional: Yes: Well Nourished, No Distress, Calm Cardiovascular: Yes: Regular Rate and Rhythm Respiratory: Yes: Regular Gastrointestinal: Yes: Normal Bowel Sounds Musculoskeletal: Yes: WNL Extremities: Yes: WNL Edema: No Peripheral Pulses WNL: Yes Neurological: Yes: Alert Labs: CBC, BMP 01/13/17 06:20 01/13/17 13:45 INR, PTT INR 1.15 (0.82-1.09) H 01/06/17 21:40 Fibrinogen 397.0 mg/dL (238-498) 01/06/17 21:40 Problem List - Problems (1) Anemia Assessment/Plan: -improved -h/h stable at the moment Code(s): D64.9 - ANEMIA, UNSPECIFIED Qualifiers: Anemia type: other cause Other causes of anemia: other cause, not classified Qualified Code(s): D64.89 - Other specified anemias (2) DVT (deep venous thrombosis) Assessment/Plan: -seen by hematology and vascular -S/P IVC filter placement 1 day ago -restarted heparin drip -bridge over to coumadin, therapeutic goal between 2-3 Code(s): I82.409 - ACUTE EMBOLISM AND THOMBOS UNSP DEEP VN UNSP LOWER EXTREMITY Assessment/Plan -S/P IVC filter -continue heparin drip until INR at least 1.5 on coumadin. therapeutic goal 2-3 -physical therapy
--- NOTE | 2017-01-14 15:15 | PN ---
Progress Note (short form) - Note Progress Note: Physical Medicine and Rehabilitation The patient is s/p IVC filter and anticoagulated. Seen at the bedside with power of family law attorney (or someone stating to be her POA). Per the POA, she suffered a stroke and medical condition a few years ago and has not been ambulatory since despite PT/OT/ST. Slurred speech and mental status changes are not new. The medical condition may have been an anoxic brain injury. The patient has had a few sessions of PT in the hospital but mainly exercises. Exam Confused woman but cooperative, knew she was in [facility] but thought month February HEENT: slurred dysarthric speech but comprehensible Ext: mild edema but no calf tenderness Skin: no rash N/M: seems to get distracted easily, follow commands, strength 4/5 in uppers and 2/5 hip girdle, 3+/5 in knee extension and 4/5 DF, normal sensation to light touch. Able to feed herself slowly Impression 1. Deficits mobility and ADLs which are longstanding 2. Altered Mental status possibly related to Anoxic Brain Injury 2 years ago 3. DVT bilateral lower limbs s/p IVC filter and anticoagulated 4. Hematuria 5. HTN 6. Anemia s/p transfusion 7. HLD Suggest: 1. Physical therapy bedside 2. OOB to chair 3. Anticoagulation 4. H/H follow 5. To return to SNF when stable
--- NOTE | 2017-01-14 16:50 | PN ---
Progress Note (short form) - Note Progress Note: Bridging heparin to coumadin Will need close GI f/u and colonoscopy to r/o occult malignancy CT scan showing hydroureteronephrosis /thickening of bladder wall--will need urology f/u
--- NOTE | 2017-01-14 17:13 | CON.PSY ---
Psychiatry Consult Chief Complaint: Patient does not know why I am seeing her. Respopnds to questions at this time. - Previous Psychiatric Treatment Outpatient: None Inpatient: None - Previous Substance Abuse Treatment Outpatient: None Inpatient: None - Current Medications Current Medications: Active Medications Acetaminophen (Tylenol -) 650 mg PO Q4H PRN PRN Reason: FEVER OR PAIN Amlodipine Besylate (Norvasc -) 5 mg PO DAILY [facility] Last Admin: 01/14/17 09:11 Dose: 5 mg Atorvastatin Calcium (Lipitor -) 40 mg PO HS [facility] Last Admin: 01/13/17 21:59 Dose: 40 mg Docusate Sodium (Colace -) 100 mg PO BID [facility] Last Admin: 01/14/17 09:11 Dose: 100 mg Fentanyl (Sublimaze Injection -) 25 mcg IVPUSH [id number] PRN PRN Reason: PAIN Stop: 01/16/17 12:44 Heparin Sodium (Porcine) (Heparin -) 5,000 unit IVPUSH PRN PRN PRN Reason: Heparin Last Admin: 01/14/17 11:17 Dose: 5,000 unit Heparin Sodium (Porcine) (Heparin -) 1,000 unit IVPUSH PRN PRN PRN Reason: Heparin Heparin Sodium (Porcine) (Heparin -) 5,000 unit IVPUSH PRN PRN PRN Reason: Heparin Heparin Sodium (Porcine) 25, (000 unit/ Sodium Chloride) 500 mls @ 16 mls/hr IV TITR MINAL; 800 UNIT/HR PRN Reason: Protocol Last Titration: 01/14/17 11:18 Dose: 1,100 unit/hr Insulin Aspart (Novolog Vial Sliding Scale -) 1 vial SQ ACHS [facility] PRN Reason: Protocol Last Admin: 01/14/17 11:25 Dose: Not Given Magnesium Oxide (Mag-Ox -) 400 mg PO BID [facility] Last Admin: 01/14/17 09:11 Dose: 400 mg Mirtazapine (Remeron -) 15 mg PO HS [facility] Last Admin: 01/13/17 21:59 Dose: 15 mg Pantoprazole Sodium (Protonix -) 40 mg PO DAILY [facility] Last Admin: 01/14/17 09:11 Dose: 40 mg Polyethylene Glycol (Miralax (For Daily Use) -) 17 gm PO DAILY PRN PRN Reason: CONSTIPATION Warfarin Sodium (Coumadin -) 5 mg PO DAILY@1800 [facility] - Allergies Allergies: Allergies Allergy/AdvReac Type Severity Reaction Status Date / Time No Known Allergies Allergy Verified 09/19/15 15:08 - Current Living Status Usual Living Arrangement: [facility] - Current Mental Status Evaluation Appearance: Well Groomed Attitude: Cooperative - Affect Affect: Constrictive Appropriateness: Appropriate to Content - Mood Mood: Euthymic - Speech/Language Expressive: Coherent - Psychomotor Activity Psychomotor Activity: Slowed - Thought Process Thought Process: Intact - Thought Content Hallucinations: Absent Delusions: Absent - Self Perception Self Perception: No Impairment - Cognition Attention: Alert Orientation: Time Memory, Immediate Recall: Intact Memory, Short Term: 2/3 Memory, Remote with Promptin/3 - Concentration Serial Sevens Intact: No Simple Calculations Intact: No - Abstraction Proverb Interpretation: Intact Judgement: Intact - Insight Insight: Intact - Impulse Control Impulse Control: Minimally Impaired - Suicidal Ideation Suicidal Ideation: No - Homicidal Ideation Homicidal Ideation: No Assessment/Plan 1) Patient has the functional capacity to make decisions at this time.
[2017-01-14] MEDS: WARFARIN NA 5 MG TABLET (UD) PO SCH (17:24)
[2017-01-14] MEDS ORDERED: PT OWN MED DRAWER 7, Y5N ONE (17:28)
[2017-01-14] MEDS: HEPARIN - 25,000 UNIT in SODIUM CHLORIDE 495 ML IV SCH (17:29)
[2017-01-14] MEDS: ATORVASTATIN CA 40 MG TABLET (FP) PO SCH (21:57)
[2017-01-14] MEDS: MIRTAZAPINE 15 MG TABLET (FP) PO SCH (21:57)
[2017-01-15 05:18] LABS: INR 1.08 (0.82-1.09); PROTHROMBIN TIME (PATIENT) 11.9 SEC (9.98-11.88)
[2017-01-15] MEDS: INSULIN SLIDING SCALE (NOVOLOG) 1 VIAL SQ SCH ×4 (06:44→21:19)
[2017-01-15 07:59] LABS: BASOPHIL 1.3 % (0-2.0); EOSINOPHIL 4.4 % (0-4.5); MCH 27.8 pg (25.7-33.7); MCHC 33.2 g/dl (32.0-36.0); MEAN CELL VOLUME 83.7 fl (80-96); MEAN PLT VOLUME 7.7 fl (7.5-11.1); NEUTROPHILS 54.7 % (42.8-82.8); PLATELET COUNT 207 K/MM3 (134-434); RDW 18.3 % (11.6-15.6); WHITE BLOOD COUNT 4.8 K/mm3 (4.0-10.0)
[2017-01-15] MEDS: DOCUSATE SODIUM 100 MG CAPSULE (FP) PO SCH ×2 (09:49→21:21)
[2017-01-15] MEDS: MAGNESIUM OXIDE 400 MG TABLET (FP) PO SCH ×2 (09:49→21:20)
[2017-01-15] MEDS: PANTOPRAZOLE 40 MG TABLET (FP) PO SCH (09:49)
[2017-01-15] MEDS: amLODIPine BESYLATE 5 MG TABLET (FP) PO SCH (09:50)
--- NOTE | 2017-01-15 10:38 | PN ---
Progress Note, Physician Chief Complaint: ANEMIA BLLE DVT History of Present Illness: Comfortable in bed, NAD, s/p IVC filter. -on heparin drip, bridge with Coumadin, ordered -plan d/c back to [facility] once INR reached at least 1.5, therapeutic goal for INR is between 2-3. - Current Medication List Current Medications: Active Medications Acetaminophen (Tylenol -) 650 mg PO Q4H PRN PRN Reason: FEVER OR PAIN Amlodipine Besylate (Norvasc -) 5 mg PO DAILY [facility] Last Admin: 01/15/17 09:50 Dose: Not Given Atorvastatin Calcium (Lipitor -) 40 mg PO HS [facility] Last Admin: 01/14/17 21:57 Dose: 40 mg Docusate Sodium (Colace -) 100 mg PO BID [facility] Last Admin: 01/15/17 09:49 Dose: 100 mg Fentanyl (Sublimaze Injection -) 25 mcg IVPUSH [id number] PRN PRN Reason: PAIN Stop: 01/16/17 12:44 Heparin Sodium (Porcine) (Heparin -) 5,000 unit IVPUSH PRN PRN PRN Reason: Heparin Last Admin: 01/14/17 11:17 Dose: 5,000 unit Heparin Sodium (Porcine) (Heparin -) 1,000 unit IVPUSH PRN PRN PRN Reason: Heparin Heparin Sodium (Porcine) (Heparin -) 5,000 unit IVPUSH PRN PRN PRN Reason: Heparin Heparin Sodium (Porcine) 25, (000 unit/ Sodium Chloride) 500 mls @ 16 mls/hr IV TITR MINAL; 800 UNIT/HR PRN Reason: Protocol Last Admin: 01/14/17 17:29 Dose: 22 mls/hr Insulin Aspart (Novolog Vial Sliding Scale -) 1 vial SQ ACHS [facility] PRN Reason: Protocol Last Admin: 01/15/17 06:44 Dose: Not Given Magnesium Oxide (Mag-Ox -) 400 mg PO BID [facility] Last Admin: 01/15/17 09:49 Dose: 400 mg Mirtazapine (Remeron -) 15 mg PO HS [facility] Last Admin: 01/14/17 21:57 Dose: 15 mg Pantoprazole Sodium (Protonix -) 40 mg PO DAILY [facility] Last Admin: 01/15/17 09:49 Dose: 40 mg Polyethylene Glycol (Miralax (For Daily Use) -) 17 gm PO DAILY PRN PRN Reason: CONSTIPATION Warfarin Sodium (Coumadin -) 5 mg PO DAILY@1800 [facility] Last Admin: 01/14/17 17:24 Dose: 5 mg - Objective Vital Signs: Vital Signs Temperature 97.5 F L 01/15/17 06:00 Pulse Rate 63 01/15/17 06:00 Respiratory Rate 18 01/15/17 06:00 Blood Pressure 113/70 01/15/17 06:00 O2 Sat by Pulse Oximetry (%) 99 01/14/17 22:00 Constitutional: Yes: Well Nourished, No Distress, Calm Cardiovascular: Yes: Regular Rate and Rhythm Respiratory: Yes: Regular Gastrointestinal: Yes: Normal Bowel Sounds Musculoskeletal: Yes: WNL Extremities: Yes: WNL Edema: No Peripheral Pulses WNL: Yes Neurological: Yes: Alert, Oriented (x2) Labs: CBC, BMP 01/15/17 07:20 01/13/17 13:45 INR, PTT INR 1.08 (0.82-1.09) 01/15/17 04:20 Fibrinogen 397.0 mg/dL (238-498) 01/06/17 21:40 Problem List - Problems (1) Anemia Assessment/Plan: -improved -h/h stable at the moment Code(s): D64.9 - ANEMIA, UNSPECIFIED Qualifiers: Anemia type: other cause Other causes of anemia: other cause, not classified Qualified Code(s): D64.89 - Other specified anemias (2) DVT (deep venous thrombosis) Assessment/Plan: -seen by hematology and vascular -S/P IVC filter placement 1 day ago -restarted heparin drip -bridge over to coumadin, therapeutic goal between 2-3 Code(s): I82.409 - ACUTE EMBOLISM AND THOMBOS UNSP DEEP VN UNSP LOWER EXTREMITY (3) Change in mental status Assessment/Plan: -seen by psychiatry, deemed to have mental capacity to make decisions about health care proxy and which [facility] facility she would like to go to. Code(s): R41.82 - ALTERED MENTAL STATUS, UNSPECIFIED Assessment/Plan -iv heparin -bridge with Coumadin to reach INR between 2-3 -decision for [facility] facility pending, doesn't want to go to [facility], is okay with [facility] -[facility]. 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 Her brother lives in [place], who is not actively involved in her care. -was seen by Urology-recommended cystoscopy once stable -repeat labs in AM
--- NOTE | 2017-01-15 14:31 | PN ---
Progress Note (short form) - Note Progress Note: Patient seen and examined Prior notes reviewed EGD- without bleeding site identified On heparin therapy being bridged to coumadin Patient denies any complains. Having her lunch. Vital Signs Period Temp Pulse Resp BP Sys/Gary Pulse Ox Last 24 Hr 97.5 F-98.4 F 63-80 18-22 112-149/55-77 99-100 HEENT: SHABNAM, EOM Intact Cor: RSR, No murmurs, No gallops Lungs: Clear to asucultate bilaterally Abd: Soft, Normal bowel sounds, No organomegaly Ext:No significant edema Skin: No rashes, Integument intact Active Medications Generic Name Dose Route Start Last Admin Trade Name Freq PRN Reason Stop Dose Admin Acetaminophen 650 mg 01/13/17 12:55 Tylenol - PO Q4H PRN FEVER OR PAIN Amlodipine Besylate 5 mg 01/14/17 10:00 01/15/17 09:50 Norvasc - PO Not Given DAILY [facility] Atorvastatin Calcium 40 mg 01/13/17 22:00 01/14/17 21:57 Lipitor - PO 40 mg HS [facility] Administration Docusate Sodium 100 mg 01/13/17 22:00 01/15/17 09:49 Colace - PO 100 mg BID [facility] Administration Fentanyl 25 mcg 01/13/17 12:43 Sublimaze Injection - IVPUSH 01/16/17 12:44 [id number] PRN PAIN Heparin Sodium (Porcine) 5,000 unit 01/13/17 18:02 01/14/17 11:17 Heparin - IVPUSH 5,000 unit PRN PRN Administration Heparin Heparin Sodium (Porcine) 1,000 unit 01/13/17 13:03 Heparin - IVPUSH PRN PRN Heparin Heparin Sodium (Porcine) 5,000 unit 01/13/17 13:03 Heparin - IVPUSH PRN PRN Heparin Heparin Sodium (Porcine) 25, 500 mls @ 16 mls/hr 01/13/17 18:05 01/14/17 17:29 000 unit/ Sodium Chloride IV 22 mls/hr TITR MINAL Administration Protocol 800 UNIT/HR Insulin Aspart 1 vial 01/13/17 16:30 01/15/17 06:44 Novolog Vial Sliding Scale - SQ Not Given ACHS [facility] Protocol Magnesium Oxide 400 mg 01/13/17 22:00 01/15/17 09:49 Mag-Ox - PO 400 mg BID [facility] Administration Mirtazapine 15 mg 01/13/17 22:00 01/14/17 21:57 Remeron - PO 15 mg HS [facility] Administration Pantoprazole Sodium 40 mg 01/14/17 10:00 01/15/17 09:49 Protonix - PO 40 mg DAILY [facility] Administration Polyethylene Glycol 17 gm 01/13/17 12:55 Miralax (For Daily Use) - PO DAILY PRN CONSTIP[facility] Warfarin Sodium 5 mg 01/14/17 18:00 01/14/17 17:24 Coumadin - PO 5 mg DAILY@1800 [facility] Administration INR, PTT INR 1.08 (0.82-1.09) 01/15/17 04:20 Fibrinogen 397.0 mg/dL (238-498) 01/06/17 21:40 CBC, BMP 01/15/17 07:20 Impression: Bilateral LE -DVT's A/C Anemia Plan: s/p IVC filter Now being bridged from heparin to coumadin Careful monitoring of PT/PTT. Will need close GI f/u and colonoscopy to r/o occult malignancy CT scan showing hydroureteronephrosis /thickening of bladder wall--will need urology f/u
[2017-01-15] MEDS: WARFARIN NA 5 MG TABLET (UD) PO SCH (17:24)
[2017-01-15] MEDS: HEPARIN - 25,000 UNIT in SODIUM CHLORIDE 495 ML IV SCH (17:24)
[2017-01-15] MEDS: MIRTAZAPINE 15 MG TABLET (FP) PO SCH (21:20)
[2017-01-15] MEDS: ATORVASTATIN CA 40 MG TABLET (FP) PO SCH (21:21)
[2017-01-16 00:47] LABS: INR 1.11 (0.82-1.09); PROTHROMBIN TIME (PATIENT) 12.2 SEC (9.98-11.88)
[2017-01-16 00:50] LABS: ACTIVATED PTT 36.9 SECONDS (26.9-34.4)
[2017-01-16 00:56] LABS: ALBUMIN 3.1 g/dl (3.4-5.0); ALK PHOS 133 U/L (45-117); ANION GAP 7 (8-16); BILIRUBIN,TOTAL 0.4 mg/dL (0.2-1.0); CALCIUM 8.8 mg/dL (8.5-10.1); CO2 28 mmol/L (21-32); CREATININE 0.6 mg/dL (0.55-1.02); GLUCOSE,RANDOM 92 mg/dL (74-106); SGOT/AST 112 U/L (15-37); SGPT/ALT 149 U/L (12-78); TOT PROT 6.5 g/dl (6.4-8.2)
[2017-01-16] MEDS: HEPARIN - 25,000 UNIT in SODIUM CHLORIDE 495 ML IV SCH ×3 (01:15→01:22)
[2017-01-16] MEDS: INSULIN SLIDING SCALE (NOVOLOG) 1 VIAL SQ SCH ×4 (06:22→21:25)
[2017-01-16 07:49] LABS: EOSINOPHIL 4.1 % (0-4.5); MCH 28.2 pg (25.7-33.7); MCHC 33.8 g/dl (32.0-36.0); MEAN CELL VOLUME 83.6 fl (80-96); MEAN PLT VOLUME 7.7 fl (7.5-11.1); PLATELET COUNT 204 K/MM3 (134-434); RDW 18.3 % (11.6-15.6); WHITE BLOOD COUNT 4.9 K/mm3 (4.0-10.0)
[2017-01-16 08:03] LABS: INR 1.18 (0.82-1.09)
[2017-01-16 08:10] LABS: ANION GAP 6 (8-16); CALCIUM 9.1 mg/dL (8.5-10.1); CO2 27 mmol/L (21-32); GLUCOSE,RANDOM 67 mg/dL (74-106)
[2017-01-16 08:13] LABS: ALK PHOS 117 U/L (45-117); BILIRUBIN,TOTAL 0.3 mg/dL (0.2-1.0); CREATININE 0.6 mg/dL (0.55-1.02); SGOT/AST 92 U/L (15-37); SGPT/ALT 129 U/L (12-78); TOT PROT 6.2 g/dl (6.4-8.2)
[2017-01-16] MEDS: amLODIPine BESYLATE 5 MG TABLET (FP) PO SCH (10:41)
[2017-01-16] MEDS: DOCUSATE SODIUM 100 MG CAPSULE (FP) PO SCH ×2 (10:41→21:24)
[2017-01-16] MEDS: MAGNESIUM OXIDE 400 MG TABLET (FP) PO SCH ×2 (10:41→21:24)
[2017-01-16] MEDS: PANTOPRAZOLE 40 MG TABLET (FP) PO SCH (10:41)
--- NOTE | 2017-01-16 11:15 | PN ---
Progress Note, Physician Chief Complaint: THIS IS MY FIRST ENCOUNTER WITH THIS PATIENT EVENTS AND NOTES REVIEWED AWAKE ALERT NAD - Current Medication List Current Medications: Active Medications Acetaminophen (Tylenol -) 650 mg PO Q4H PRN PRN Reason: FEVER OR PAIN Amlodipine Besylate (Norvasc -) 5 mg PO DAILY [facility] Last Admin: 01/16/17 10:41 Dose: 5 mg Atorvastatin Calcium (Lipitor -) 40 mg PO HS [facility] Last Admin: 01/15/17 21:21 Dose: 40 mg Docusate Sodium (Colace -) 100 mg PO BID [facility] Last Admin: 01/16/17 10:41 Dose: 100 mg Fentanyl (Sublimaze Injection -) 25 mcg IVPUSH [id number] PRN PRN Reason: PAIN Stop: 01/16/17 12:44 Heparin Sodium (Porcine) (Heparin -) 5,000 unit IVPUSH PRN PRN PRN Reason: Heparin Last Admin: 01/14/17 11:17 Dose: 5,000 unit Heparin Sodium (Porcine) (Heparin -) 1,000 unit IVPUSH PRN PRN PRN Reason: Heparin Heparin Sodium (Porcine) (Heparin -) 5,000 unit IVPUSH PRN PRN PRN Reason: Heparin Heparin Sodium (Porcine) 25, (000 unit/ Sodium Chloride) 500 mls @ 16 mls/hr IV TITR MINAL; 800 UNIT/HR PRN Reason: Protocol Last Admin: 01/16/17 01:20 Dose: 16 mls/hr Insulin Aspart (Novolog Vial Sliding Scale -) 1 vial SQ ACHS [facility] PRN Reason: Protocol Last Admin: 01/16/17 06:22 Dose: Not Given Magnesium Oxide (Mag-Ox -) 400 mg PO BID [facility] Last Admin: 01/16/17 10:41 Dose: 400 mg Mirtazapine (Remeron -) 15 mg PO HS [facility] Last Admin: 01/15/17 21:20 Dose: 15 mg Pantoprazole Sodium (Protonix -) 40 mg PO DAILY [facility] Last Admin: 01/16/17 10:41 Dose: 40 mg Polyethylene Glycol (Miralax (For Daily Use) -) 17 gm PO DAILY PRN PRN Reason: CONSTIPATION Warfarin Sodium (Coumadin -) 5 mg PO DAILY@1800 [facility] Last Admin: 01/15/17 17:24 Dose: 5 mg - Objective Vital Signs: Vital Signs Temperature 97.6 F 01/16/17 06:00 Pulse Rate 57 L 01/16/17 06:00 Respiratory Rate 18 01/16/17 06:00 Blood Pressure 131/79 01/16/17 06:00 O2 Sat by Pulse Oximetry (%) 97 01/15/17 21:00 Constitutional: Yes: No Distress Eyes: Yes: WNL HENT: Yes: WNL Neck: Yes: WNL Cardiovascular: Yes: Pulse Irregular Respiratory: Yes: WNL Gastrointestinal: Yes: WNL Genitourinary: Yes: Incontinence Musculoskeletal: Yes: Muscle Weakness Extremities: Yes: WNL Edema: No Peripheral Pulses WNL: Yes Integumentary: Yes: WNL Wound/Incision: Yes: Clean/Dry Neurological: Yes: Pre-Existing Deficit, Weakness ...Motor Strength: LLE, RLE Labs: CBC, BMP 01/16/17 06:30 01/16/17 06:30 INR, PTT INR 1.18 (0.82-1.09) H 01/16/17 06:30 Fibrinogen 409.0 mg/dL (238-498) 01/16/17 00:20 Problem List - Problems (1) Anemia Code(s): D64.9 - ANEMIA, UNSPECIFIED Qualifiers: Anemia type: other cause Other causes of anemia: other cause, not classified Qualified Code(s): D64.89 - Other specified anemias (2) Change in mental status Code(s): R41.82 - ALTERED MENTAL STATUS, UNSPECIFIED (3) DVT (deep venous thrombosis) Code(s): I82.409 - ACUTE EMBOLISM AND THOMBOS UNSP DEEP VN UNSP LOWER EXTREMITY (4) Gait abnormality Code(s): R26.9 - UNSPECIFIED ABNORMALITIES OF GAIT AND MOBILITY (5) HTN (hypertension) Code(s): I10 - ESSENTIAL (PRIMARY) HYPERTENSION Assessment/Plan BRIDGING COUMADIN THERAPY ON HEPARIN IV SSI/ADA PT EVAL SNF LABS REVIEWED
[2017-01-16 13:11] LABS: INR 1.19 (0.82-1.09); PROTHROMBIN TIME (PATIENT) 13.1 SEC (9.98-11.88)
[2017-01-16] MEDS: WARFARIN NA 5 MG TABLET (UD) PO SCH (17:27)
--- NOTE | 2017-01-16 18:53 | PN ---
Progress Note (short form) - Note Progress Note: Patient seen an dexamined no c/o Last Vital Signs Temp Pulse Resp BP Pulse Ox 98.1 F 64 20 136/78 97 01/16/17 14:08 01/16/17 14:08 01/16/17 14:01/16/17 14:01/16/17 09:00 Cor: RSR, No murmurs, No gallops Lungs: Clear to P&A Abd: Soft, Normal bowel sounds, No organomegaly Ext:No significant edema Abnormal Lab Results 01/16/17 01/16/17 01/16/17 00:20 00:20 06:30 RDW INR PTT (Actin FS) 36.9 H D 121.5 H D Sodium 131 L Chloride 96 L Anion Gap 7 L BUN 19 H D Random Glucose AST 112 H ALT 149 H Alkaline Phosphatase 133 H D Total Protein Albumin 3.1 L 01/16/17 01/16/17 01/16/17 06:30 06:30 06:30 RDW 18.3 H INR 1.18 H PTT (Actin FS) Sodium 132 L Chloride Anion Gap 6 L BUN Random Glucose 67 L D AST 92 H ALT 129 H Alkaline Phosphatase Total Protein 6.2 L Albumin 3.0 L 01/16/17 01/16/17 12:50 12:50 RDW INR 1.19 H PTT (Actin FS) 41.1 H D Sodium Chloride Anion Gap BUN Random Glucose AST ALT Alkaline Phosphatase Total Protein Albumin Active Medications Acetaminophen (Tylenol -) 650 mg PO Q4H PRN PRN Reason: FEVER OR PAIN Amlodipine Besylate (Norvasc -) 5 mg PO DAILY [facility] Last Admin: 01/16/17 10:41 Dose: 5 mg Atorvastatin Calcium (Lipitor -) 40 mg PO HS [facility] Last Admin: 01/15/17 21:21 Dose: 40 mg Docusate Sodium (Colace -) 100 mg PO BID [facility] Last Admin: 01/16/17 10:41 Dose: 100 mg Heparin Sodium (Porcine) (Heparin -) 5,000 unit IVPUSH PRN PRN PRN Reason: Heparin Last Admin: 01/14/17 11:17 Dose: 5,000 unit Heparin Sodium (Porcine) (Heparin -) 1,000 unit IVPUSH PRN PRN PRN Reason: Heparin Heparin Sodium (Porcine) (Heparin -) 5,000 unit IVPUSH PRN PRN PRN Reason: Heparin Heparin Sodium (Porcine) 25, (000 unit/ Sodium Chloride) 500 mls @ 16 mls/hr IV TITR [facility]; 800 UNIT/HR PRN Reason: Protocol Last Titration: 01/16/17 14:21 Dose: 650 unit/hr Insulin Aspart (Novolog Vial Sliding Scale -) 1 vial SQ ACHS [facility] PRN Reason: Protocol Last Admin: 01/16/17 17:20 Dose: Not Given Magnesium Oxide (Mag-Ox -) 400 mg PO BID [facility] Last Admin: 01/16/17 10:41 Dose: 400 mg Mirtazapine (Remeron -) 15 mg PO HS [facility] Last Admin: 01/15/17 21:20 Dose: 15 mg Pantoprazole Sodium (Protonix -) 40 mg PO DAILY [facility] Last Admin: 01/16/17 10:41 Dose: 40 mg Polyethylene Glycol (Miralax (For Daily Use) -) 17 gm PO DAILY PRN PRN Reason: CONSTIPATION Warfarin Sodium (Coumadin -) 5 mg PO DAILY@1800 [facility] Last Admin: 01/16/17 17:27 Dose: 5 mg A/P 66 yo F with a past medical history significant for CVA/TIA 3 years ago, DM, HTN , HLD, anemia and constipation who presents from [facility] with bilateral pedal edema as well as anemia, 6.6 and 20 HGB and Hematocrit and a sodium of 129. found to have B/L DVT . Seems like a chronic GI bleed No active bleeding, now with normal hemoglobin EGD unrevealing may need colonoscopy CT a/p--no retroperitoneal bleed prominent left hydroureteronephrosis b/l DVT On heparin drip, titrate for PTT bridging to coumadin Iron deficiency- IV iron 200mg x 3days low sat 7% GI ?? colonoscopy Bridging heparin to coumadin Will need close GI f/u and colonoscopy to r/o occult malignancy CT scan showing hydroureteronephrosis /thickening of bladder wall--will need urology f/u abnormal LFTs --check U/S gi f/u
[2017-01-16] MEDS: ATORVASTATIN CA 40 MG TABLET (FP) PO SCH (21:24)
[2017-01-16] MEDS: MIRTAZAPINE 15 MG TABLET (FP) PO SCH (21:25)
[2017-01-17] MEDS: HEPARIN - 25,000 UNIT in SODIUM CHLORIDE 495 ML IV SCH ×3 (00:43→09:15)
[2017-01-17] MEDS: INSULIN SLIDING SCALE (NOVOLOG) 1 VIAL SQ SCH ×4 (06:41→22:37)
[2017-01-17 08:41] LABS: BASOPHIL 1.3 % (0-2.0); EOSINOPHIL 3.7 % (0-4.5); MCH 28.6 pg (25.7-33.7); MCHC 34.2 g/dl (32.0-36.0); MEAN CELL VOLUME 83.5 fl (80-96); MEAN PLT VOLUME 7.6 fl (7.5-11.1); NEUTROPHILS 57.4 % (42.8-82.8); PLATELET COUNT 216 K/MM3 (134-434); RDW 18.7 % (11.6-15.6); WHITE BLOOD COUNT 5.2 K/mm3 (4.0-10.0)
[2017-01-17 09:35] LABS: ALBUMIN 3.1 g/dl (3.4-5.0); ALK PHOS 127 U/L (45-117); ANION GAP 8 (8-16); BILIRUBIN,TOTAL 0.4 mg/dL (0.2-1.0); CALCIUM 8.9 mg/dL (8.5-10.1); CO2 26 mmol/L (21-32); CREATININE 0.5 mg/dL (0.55-1.02); GLUCOSE,RANDOM 69 mg/dL (74-106); MAGNESIUM 1.9 mg/dL (1.8-2.4); SGOT/AST 71 U/L (15-37); SGPT/ALT 117 U/L (12-78); TOT PROT 6.7 g/dl (6.4-8.2)
[2017-01-17] MEDS: DOCUSATE SODIUM 100 MG CAPSULE (FP) PO SCH ×2 (10:23→22:36)
[2017-01-17] MEDS: MAGNESIUM OXIDE 400 MG TABLET (FP) PO SCH ×2 (10:23→22:36)
[2017-01-17] MEDS: amLODIPine BESYLATE 5 MG TABLET (FP) PO SCH (10:23)
[2017-01-17] MEDS: PANTOPRAZOLE 40 MG TABLET (FP) PO SCH (10:23)
[2017-01-17 11:38] LABS: INR 1.4 (0.82-1.09); PROTHROMBIN TIME (PATIENT) 15.5 SEC (9.98-11.88)
--- NOTE | 2017-01-17 11:44 | PN ---
GI Progress Note Subjective: asked to see patient because of elevated LFTS, she denies abdominal pain, rectal bleeding, nausea ad vomiting - Objective Vital Signs: Vital Signs Temperature 98 F 01/17/17 10:22 Pulse Rate 63 01/17/17 10:22 Respiratory Rate 18 01/17/17 10:22 Blood Pressure 148/80 01/17/17 10:22 O2 Sat by Pulse Oximetry (%) 97 01/17/17 09:00 Constitutional: Well Nourished, Poor Hygeine HENT: Yes: Atraumatic Neck: Yes: Supple, Tenderness Respiratory: Yes: CTA Bilaterally ...Palpate: Yes: Soft. No: Firm/Rigid, Guarding, Hepatomegaly, Mass, Pulsatile Mass, Splenomegaly, Tenderness Labs: CBC, BMP 01/17/17 07:45 01/17/17 07:45 INR, PTT INR 1.40 (0.82-1.09) H 01/17/17 11:00 Fibrinogen 409.0 mg/dL (238-498) 01/16/17 00:20 Problem List - Problems (1) Elevated liver enzymes Assessment/Plan: secondary to medication R> discontinue Lipitor and trend lfts, once near normal please restart lipitor 20mg Wed-Wed and Wednesday Code(s): R74.8 - ABNORMAL LEVELS OF OTHER SERUM ENZYMES
--- NOTE | 2017-01-17 12:08 | PN ---
Progress Note, Physician Chief Complaint: AWAKE, NO EVENTS OVERNIGHT - Current Medication List Current Medications: Active Medications Acetaminophen (Tylenol -) 650 mg PO Q4H PRN PRN Reason: FEVER OR PAIN Amlodipine Besylate (Norvasc -) 5 mg PO DAILY [facility] Last Admin: 01/17/17 10:23 Dose: 5 mg Docusate Sodium (Colace -) 100 mg PO BID [facility] Last Admin: 01/17/17 10:23 Dose: 100 mg Heparin Sodium (Porcine) (Heparin -) 5,000 unit IVPUSH PRN PRN PRN Reason: Heparin Last Admin: 01/14/17 11:17 Dose: 5,000 unit Heparin Sodium (Porcine) (Heparin -) 1,000 unit IVPUSH PRN PRN PRN Reason: Heparin Heparin Sodium (Porcine) 25, (000 unit/ Sodium Chloride) 500 mls @ 15 mls/hr IV TITR [facility]AL PRN Reason: Protocol Last Admin: 01/17/17 09:15 Dose: 12 mls/hr Insulin Aspart (Novolog Vial Sliding Scale -) 1 vial SQ ACHS [facility] PRN Reason: Protocol Last Admin: 01/17/17 06:41 Dose: Not Given Magnesium Oxide (Mag-Ox -) 400 mg PO BID [facility] Last Admin: 01/17/17 10:23 Dose: 400 mg Mirtazapine (Remeron -) 15 mg PO HS [facility] Last Admin: 01/16/17 21:25 Dose: 15 mg Pantoprazole Sodium (Protonix -) 40 mg PO DAILY [facility] Last Admin: 01/17/17 10:23 Dose: 40 mg Polyethylene Glycol (Miralax (For Daily Use) -) 17 gm PO DAILY PRN PRN Reason: CONSTIPATION Warfarin Sodium (Coumadin -) 5 mg PO DAILY@1800 [facility] Last Admin: 01/16/17 17:27 Dose: 5 mg - Objective Vital Signs: Vital Signs Temperature 98 F 01/17/17 10:22 Pulse Rate 63 01/17/17 10:22 Respiratory Rate 18 01/17/17 10:22 Blood Pressure 148/80 01/17/17 10:22 O2 Sat by Pulse Oximetry (%) 97 01/17/17 09:00 Constitutional: Yes: No Distress Eyes: Yes: WNL HENT: Yes: WNL Neck: Yes: WNL Cardiovascular: Yes: Pulse Irregular Respiratory: Yes: WNL Gastrointestinal: Yes: WNL Genitourinary: Yes: Incontinence Musculoskeletal: Yes: Muscle Weakness Extremities: Yes: Other Edema: Yes Edema: LLE: 1+, RLE: 1+ Peripheral Pulses WNL: Yes Integumentary: Yes: WNL Wound/Incision: Yes: Dressing Dry and Intact Neurological: Yes: Pre-Existing Deficit ...Motor Strength: LLE, RLE Psychiatric: Yes: Other Labs: CBC, BMP 01/17/17 07:45 01/17/17 07:45 INR, PTT INR 1.40 (0.82-1.09) H 01/17/17 11:00 Fibrinogen 409.0 mg/dL (238-498) 01/16/17 00:20 Problem List - Problems (1) Anemia Code(s): D64.9 - ANEMIA, UNSPECIFIED Qualifiers: Anemia type: other cause Other causes of anemia: other cause, not classified Qualified Code(s): D64.89 - Other specified anemias (2) Change in mental status Code(s): R41.82 - ALTERED MENTAL STATUS, UNSPECIFIED (3) DVT (deep venous thrombosis) Code(s): I82.409 - ACUTE EMBOLISM AND THOMBOS UNSP DEEP VN UNSP LOWER EXTREMITY (4) Gait abnormality Code(s): R26.9 - UNSPECIFIED ABNORMALITIES OF GAIT AND MOBILITY (5) HTN (hypertension) Code(s): I10 - ESSENTIAL (PRIMARY) HYPERTENSION Assessment/Plan BRIDGING COUMADIN THERAPY ON HEPARIN IV SSI/ADA PT EVAL SNF LABS REVIEWED
--- NOTE | 2017-01-17 17:26 | PN ---
Progress Note (short form) - Note Progress Note: Patient seen an dexamined no c/o Last Vital Signs Temp Pulse Resp BP Pulse Ox 97.9 F 60 18 156/93 97 01/17/17 14:23 01/17/17 14:23 01/17/17 14:23 01/17/17 14:23 01/17/17 09:00 Cor: RSR, No murmurs, No gallops Lungs: Clear to P&A Abd: Soft, Normal bowel sounds, No organomegaly Ext:No significant edema Abnormal Lab Results 01/16/17 01/17/17 01/17/17 20:20 01:39 07:45 RDW 18.7 H INR PTT (Actin FS) 37.6 H 85.8 H D Sodium Chloride Creatinine Random Glucose AST ALT Alkaline Phosphatase Albumin 01/17/17 01/17/17 01/17/17 07:45 07:45 11:00 RDW INR 1.40 H PTT (Actin FS) 83.1 H Sodium 129 L Chloride 95 L Creatinine 0.5 L Random Glucose 69 L AST 71 H D ALT 117 H Alkaline Phosphatase 127 H Albumin 3.1 L Active Medications Acetaminophen (Tylenol -) 650 mg PO Q4H PRN PRN Reason: FEVER OR PAIN Amlodipine Besylate (Norvasc -) 5 mg PO DAILY [facility] Last Admin: 01/17/17 10:23 Dose: 5 mg Docusate Sodium (Colace -) 100 mg PO BID [facility] Last Admin: 01/17/17 10:23 Dose: 100 mg Heparin Sodium (Porcine) (Heparin -) 5,000 unit IVPUSH PRN PRN PRN Reason: Heparin Last Admin: 01/14/17 11:17 Dose: 5,000 unit Heparin Sodium (Porcine) (Heparin -) 1,000 unit IVPUSH PRN PRN PRN Reason: Heparin Heparin Sodium (Porcine) 25, (000 unit/ Sodium Chloride) 500 mls @ 15 mls/hr IV TITR [facility] PRN Reason: Protocol Last Admin: 01/17/17 09:15 Dose: 12 mls/hr Insulin Aspart (Novolog Vial Sliding Scale -) 1 vial SQ ACHS [facility] PRN Reason: Protocol Last Admin: 01/17/17 17:40 Dose: Not Given Magnesium Oxide (Mag-Ox -) 400 mg PO BID [facility] Last Admin: 07/09/17 10:23 Dose: 400 mg Mirtazapine (Remeron -) 15 mg PO HS [facility] Last Admin: 01/16/17 21:25 Dose: 15 mg Pantoprazole Sodium (Protonix -) 40 mg PO DAILY [facility] Last Admin: 01/17/17 10:23 Dose: 40 mg Polyethylene Glycol (Miralax (For Daily Use) -) 17 gm PO DAILY PRN PRN Reason: CONSTIPATION Warfarin Sodium (Coumadin -) 5 mg PO DAILY@1800 [facility] Last Admin: 01/17/17 17:40 Dose: 5 mg A/P 66 yo F with a past medical history significant for CVA/TIA 3 years ago, DM, HTN , HLD, anemia and constipation who presents from [facility] with bilateral pedal edema as well as anemia, 6.6 and 20 HGB and Hematocrit and a sodium of 129. found to have B/L DVT . Seems like a chronic GI bleed No active bleeding, now with normal hemoglobin EGD unrevealing may need colonoscopy CT a/p--no retroperitoneal bleed prominent left hydroureteronephrosis b/l DVT On heparin drip, titrate for PTT bridging to coumadin s/p ivc filter check thrombophilia w/u Iron deficiency- IV iron 200mg x 3days low sat 7% GI ?? colonoscopy Bridging heparin to coumadin Will need close GI f/u and colonoscopy to r/o occult malignancy CT scan showing hydroureteronephrosis /thickening of bladder wall--will need urology f/u abnormal LFTs --check U/S gi f/u
[2017-01-17] MEDS: WARFARIN NA 5 MG TABLET (UD) PO SCH (17:40)
[2017-01-17] MEDS ORDERED: PT OWN MED DRAWER 7, Y5N ONE (22:32)
[2017-01-17] MEDS: MIRTAZAPINE 15 MG TABLET (FP) PO SCH (22:36)
[2017-01-18] MEDS: HEPARIN - 25,000 UNIT in SODIUM CHLORIDE 495 ML IV SCH ×2 (00:19→23:00)
[2017-01-18] MEDS: INSULIN SLIDING SCALE (NOVOLOG) 1 VIAL SQ SCH ×4 (06:08→23:42)
[2017-01-18 07:27] LABS: BASOPHIL 1.5 % (0-2.0); EOSINOPHIL 4.3 % (0-4.5); MCH 28.5 pg (25.7-33.7); MCHC 34.7 g/dl (32.0-36.0); MEAN CELL VOLUME 82.3 fl (80-96); MEAN PLT VOLUME 7.5 fl (7.5-11.1); NEUTROPHILS 57.8 % (42.8-82.8); PLATELET COUNT 209 K/MM3 (134-434); RDW 18.8 % (11.6-15.6); WHITE BLOOD COUNT 4.9 K/mm3 (4.0-10.0)
[2017-01-18 08:29] LABS: ALBUMIN 3.2 g/dl (3.4-5.0); ALK PHOS 132 U/L (45-117); ANION GAP 9 (8-16); BILIRUBIN,TOTAL 0.5 mg/dL (0.2-1.0); CALCIUM 8.6 mg/dL (8.5-10.1); CO2 26 mmol/L (21-32); CREATININE 0.6 mg/dL (0.55-1.02); GLUCOSE,RANDOM 77 mg/dL (74-106); SGOT/AST 78 U/L (15-37); SGPT/ALT 115 U/L (12-78); TOT PROT 6.4 g/dl (6.4-8.2)
[2017-01-18] MEDS: amLODIPine BESYLATE 5 MG TABLET (FP) PO SCH (09:33)
[2017-01-18] MEDS: MAGNESIUM OXIDE 400 MG TABLET (FP) PO SCH ×2 (09:33→23:33)
[2017-01-18] MEDS: PANTOPRAZOLE 40 MG TABLET (FP) PO SCH (09:33)
[2017-01-18] MEDS: DOCUSATE SODIUM 100 MG CAPSULE (FP) PO SCH ×2 (09:33→23:34)
--- NOTE | 2017-01-18 10:04 | PN ---
Progress Note, Physician Chief Complaint: ANEMIA BLLE DVT History of Present Illness: Comfortable in bed, NAD, s/p IVC filter. -on heparin drip, bridge with Coumadin, ordered -plan d/c back to [facility] once INR reached at least 1.5, therapeutic goal for INR is between 2-3. - Current Medication List Current Medications: Active Medications Acetaminophen (Tylenol -) 650 mg PO Q4H PRN PRN Reason: FEVER OR PAIN Amlodipine Besylate (Norvasc -) 5 mg PO DAILY [facility] Last Admin: 01/18/17 09:33 Dose: 5 mg Docusate Sodium (Colace -) 100 mg PO BID [facility] Last Admin: 01/18/17 09:33 Dose: 100 mg Heparin Sodium (Porcine) (Heparin -) 5,000 unit IVPUSH PRN PRN PRN Reason: Heparin Last Admin: 01/14/17 11:17 Dose: 5,000 unit Heparin Sodium (Porcine) (Heparin -) 1,000 unit IVPUSH PRN PRN PRN Reason: Heparin Heparin Sodium (Porcine) 25, (000 unit/ Sodium Chloride) 500 mls @ 15 mls/hr IV TITR [facility] PRN Reason: Protocol Last Titration: 01/18/17 09:35 Dose: 10 ml/hr Insulin Aspart (Novolog Vial Sliding Scale -) 1 vial SQ ACHS [facility] PRN Reason: Protocol Last Admin: 01/18/17 06:08 Dose: Not Given Magnesium Oxide (Mag-Ox -) 400 mg PO BID [facility] Last Admin: 01/18/17 09:33 Dose: 400 mg Mirtazapine (Remeron -) 15 mg PO HS [facility] Last Admin: 01/17/17 22:36 Dose: 15 mg Pantoprazole Sodium (Protonix -) 40 mg PO DAILY [facility] Last Admin: 01/18/17 09:33 Dose: 40 mg Polyethylene Glycol (Miralax (For Daily Use) -) 17 gm PO DAILY PRN PRN Reason: CONSTIPATION Warfarin Sodium (Coumadin -) 5 mg PO DAILY@1800 [facility] Last Admin: 01/17/17 17:40 Dose: 5 mg - Objective Vital Signs: Vital Signs Temperature 97.6 F 01/18/17 06:00 Pulse Rate 69 01/18/17 06:00 Respiratory Rate 18 01/18/17 06:00 Blood Pressure 122/78 01/18/17 06:00 O2 Sat by Pulse Oximetry (%) 97 01/17/17 22:00 Constitutional: Yes: Well Nourished, No Distress, Calm Cardiovascular: Yes: Regular Rate and Rhythm Respiratory: Yes: Regular Gastrointestinal: Yes: Normal Bowel Sounds Musculoskeletal: Yes: WNL Extremities: Yes: WNL Edema: No Peripheral Pulses WNL: Yes Neurological: Yes: Alert, Oriented Labs: CBC, BMP 01/18/17 05:35 01/18/17 05:35 INR, PTT INR 1.40 (0.82-1.09) H 01/17/17 11:00 Fibrinogen 409.0 mg/dL (238-498) 01/16/17 00:20 Problem List - Problems (1) Anemia Assessment/Plan: -improved -h/h stable at the moment -colonoscopy outpatient once stable. Code(s): D64.9 - ANEMIA, UNSPECIFIED Qualifiers: Anemia type: other cause Other causes of anemia: other cause, not classified Qualified Code(s): D64.89 - Other specified anemias (2) DVT (deep venous thrombosis) Assessment/Plan: -seen by hematology and vascular -S/P IVC filter placement -onheparin drip -bridging over to coumadin, pending INR today, therapeutic goal between 2-3 Code(s): I82.409 - ACUTE EMBOLISM AND THOMBOS UNSP DEEP VN UNSP LOWER EXTREMITY (3) Change in mental status Assessment/Plan: -seen by psychiatry, deemed to have mental capacity to make decisions about health care proxy and which [facility] facility she would like to go to. -sp[facility] to her Wednesday, [facility], doesn't want to go to [facility]. Wants to assign Line Clearance Foremanyohan Rao, who is already her power of banking attorney, as her Health care proxy. Code(s): R41.82 - ALTERED MENTAL STATUS, UNSPECIFIED (4) Hydroureteronephrosis Assessment/Plan: -seen by urology, -cystoscopy as outpatient once stable. Code(s): N13.30 - UNSPECIFIED HYDRONEPHROSIS Assessment/Plan -iv heparin -bridge with Coumadin to reach INR between 2-3 -[facility] once stable and INR reaches 2.0 -wants to assign Line Clearance Foreman Jalen as her health care proxy. 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 Her brother lives in [place], who is not actively involved in her care. -was seen by Urology-recommended cystoscopy once stable -Colonoscopy as outpatient. -repeat labs in AM
[2017-01-18 10:51] LABS: INR 1.6 (0.82-1.09); PROTHROMBIN TIME (PATIENT) 17.8 SEC (9.98-11.88)
[2017-01-18 11:58] LABS: OSMOLALITY,SERUM 258 mosm/kg (278-305)
[2017-01-18 14:06] LABS: THYROID STIMULATING HORMONE 2.72 uIU/ml (0.358-3.74)
--- NOTE | 2017-01-18 15:18 | CONSULT ---
Consultation: REQUESTING PROVIDER: CONSULT REQUEST: We have been asked to medically evaluate this patient for hyponatremia. HISTORY OF PRESENT ILLNESS: 66 yo F with a past medical history significant for CVA/TIA 3 years ago, DM, HTN , HLD, anemia and constipation who presents from [facility] with bilateral pedal edema as well as anemia Hgb 6.6 and found to have BL DVT. Patient also noted to have hyponatremia with Na of 129 for which we have been consulted. Patient is bedridden and poor historian. Denies any history of kidney problems in past. Denies NSAID or recent antibiotic use. She denies hematuria or dysuria. Denies CP, JAMES, palpitations, SOB, abd. pain, N/V. REVIEW OF SYSTEMS: CONSTITUTIONAL: Absent: fever, chills, diaphoresis, generalized weakness, malaise, loss of appetite, weight change HEENT: Absent: rhinorrhea, nasal congestion, throat pain, throat swelling, difficulty swallowing, mouth swelling, ear pain, eye pain, visual changes CARDIOVASCULAR: Absent: chest pain, syncope, palpitations, irregular heart rate, lightheadedness , peripheral edema RESPIRATORY: Absent: cough, shortness of breath, dyspnea with exertion, orthopnea, wheezing, stridor, hemoptysis GASTROINTESTINAL: Absent: abdominal pain, abdominal distension, nausea, vomiting, diarrhea, constipation, melena, hematochezia GENITOURINARY: Absent: dysuria, frequency, urgency, hesitancy, hematuria, flank pain, genital pain MUSCULOSKELETAL: Absent: myalgia, arthralgia, joint swelling, back pain, neck pain SKIN: Absent: rash, itching, pallor HEMATOLOGIC/IMMUNOLOGIC: Absent: easy bleeding, easy bruising, lymphadenopathy, frequent infections ENDOCRINE: Absent: unexplained weight gain, unexplained weight loss, heat intolerance, cold intolerance NEUROLOGIC: Absent: headache, focal weakness or paresthesias, dizziness, unsteady gait, seizure, mental status changes, bladder or bowel incontinence PSYCHIATRIC: Absent: anxiety, depression, suicidal or homicidal ideation, hallucinations. PHYSICAL EXAMINATION Vital Signs - 24 hr 01/17/17 01/17/17 01/18/17 19:00 22:00 02:00 Temperature 97.7 F 98.2 F Pulse Rate 65 70 68 Respiratory 18 16 18 Rate Blood Pressure 134/77 128/74 122/78 O2 Sat by Pulse 97 Oximetry (%) 01/18/17 01/18/17 01/18/17 06:00 10:00 11:05 Temperature 97.6 F 97.6 F Pulse Rate 69 80 72 Respiratory 18 20 Rate Blood Pressure 122/78 118/60 O2 Sat by Pulse 97 Oximetry (%) GENERAL: awake and alert, NAD HEAD:NC/AT EYES: PERRLA, EOMI EARS, NOSE, THROAT: Moist mucous membranes. NECK: supple no jvd LUNGS:CATB , no wheezing or rales. HEART: Irregular, no m/g/r ABDOMEN: Soft,NT, ND, BS(+) UPPER EXTREMITIES: 2+ pulses, warm, well-perfused. No cyanosis. No clubbing. LOWER EXTREMITIES: 2+ pulses, warm, well-perfused. No calf tenderness. 1+ bilateral peripheral edema. Laboratory Results - last 24 hr 01/17/17 01/17/17 01/18/17 17:29 22:36 00:20 WBC RBC Hgb Hct MCV MCH MCHC RDW Plt Count MPV Neutrophils % Lymphocytes % Monocytes % Eosinophils % Basophils % INR PTT (Actin FS) 72.5 H Sodium Potassium Chloride Carbon Dioxide Anion Gap BUN Creatinine Creat Clearance w eGFR POC Glucometer 121 152 Random Glucose Serum Osmolality Calcium Total Bilirubin AST ALT Alkaline Phosphatase Total Protein Albumin TSH 01/18/17 01/18/17 01/18/17 05:35 05:35 05:35 WBC 4.9 RBC 3.94 Hgb 11.2 Hct 32.4 MCV 82.3 MCH 28.5 MCHC 34.7 RDW 18.8 H Plt Count 209 MPV 7.5 Neutrophils % 57.8 Lymphocytes % 30.0 Monocytes % 6.4 Eosinophils % 4.3 Basophils % 1.5 INR PTT (Actin FS) 88.8 H Sodium 129 L Potassium 4.5 Chloride 94 L Carbon Dioxide 26 Anion Gap 9 BUN 17 Creatinine 0.6 Creat Clearance w eGFR > 60 POC Glucometer Random Glucose 77 Serum Osmolality 258 L Calcium 8.6 Total Bilirubin 0.5 D AST 78 H ALT 115 H Alkaline Phosphatase 132 H Total Protein 6.4 Albumin 3.2 L TSH 2.72 D 01/18/17 01/18/17 01/18/17 05:51 09:53 11:21 WBC RBC Hgb Hct MCV MCH MCHC RDW Plt Count MPV Neutrophils % Lymphocytes % Monocytes % Eosinophils % Basophils % INR 1.60 H PTT (Actin FS) Sodium Potassium Chloride Carbon Dioxide Anion Gap BUN Creatinine Creat Clearance w eGFR POC Glucometer 90 103 Random Glucose Serum Osmolality Calcium Total Bilirubin AST ALT Alkaline Phosphatase Total Protein Albumin TSH 01/18/17 13:20 WBC RBC Hgb Hct MCV MCH MCHC RDW Plt Count MPV Neutrophils % Lymphocytes % Monocytes % Eosinophils % Basophils % INR PTT (Actin FS) Sodium Potassium Chloride Carbon Dioxide Anion Gap BUN Creatinine Creat Clearance w eGFR POC Glucometer Random Glucose Serum Osmolality Calcium Total Bilirubin AST ALT Alkaline Phosphatase Total Protein Albumin TSH Cancelled Active Medications Generic Name Dose Route Start Last Admin Trade Name Freq PRN Reason Stop Dose Admin Acetaminophen 650 mg 01/13/17 12:55 Tylenol - PO Q4H PRN FEVER OR PAIN Amlodipine Besylate 5 mg 01/14/17 10:00 01/18/17 09:33 Norvasc - PO 5 mg DAILY [facility] Administration Docusate Sodium 100 mg 01/13/17 22:00 01/18/17 09:33 Colace - PO 100 mg BID [facility] Administration Heparin Sodium (Porcine) 5,000 unit 01/13/17 18:02 01/14/17 11:17 Heparin - IVPUSH 5,000 unit PRN PRN Administration Heparin Heparin Sodium (Porcine) 1,000 unit 01/13/17 13:03 Heparin - IVPUSH PRN PRN Heparin Heparin Sodium (Porcine) 25, 500 mls @ 15 mls/hr 01/16/17 23:45 01/18/17 09:35 000 unit/ Sodium Chloride IV 10 ml/hr TITR [facility] Titration Protocol Insulin Aspart 1 vial 01/13/17 16:30 01/18/17 11:24 Novolog Vial Sliding Scale - SQ Not Given ACHS [facility] Protocol Magnesium Oxide 400 mg 01/13/17 22:00 01/18/17 09:33 Mag-Ox - PO 400 mg BID [facility] Administration Mirtazapine 15 mg 01/13/17 22:00 01/17/17 22:36 Remeron - PO 15 mg HS [facility] Administration Pantoprazole Sodium 40 mg 01/14/17 10:00 01/18/17 09:33 Protonix - PO 40 mg DAILY [facility] Administration Polyethylene Glycol 17 gm 01/13/17 12:55 Miralax (For Daily Use) - PO DAILY PRN CONSTIPATION Warfarin Sodium 5 mg 01/14/17 18:00 01/17/17 17:40 Coumadin - PO 5 mg DAILY@1800 [facility] Administration ASSESSMENT/PLAN: 66 yo F with h/o CVA/TIA 3 years ago, DM, HTN, HLD, unintentional weight loss, anemia and constipation admitted to the ICU for acute anemia and bilateral DVT. Dispo: We will continue to follow the patient. Thank you for this consultative opportunity. Problem List - Problems (1) Hyponatremia Assessment/Plan: * Will need further work up to determine most likely cause. * TSH and AM cortisol. * Serum osmolality * Urine sodium * repeat labs in AM (2) DVT (deep venous thrombosis) Assessment/Plan: * S/P IVC filter. * continue to bridge with Heparin and continue Coumadin * subtherapeutic INR * will be discharged to [facility] once INR therapeutic. (3) Anemia Assessment/Plan: * resolved - no active bleeding * colonoscopy as outpatient. (4) GI bleed Assessment/Plan: * colonscopy as outpatient. (5) HTN (hypertension) Assessment/Plan: * Amlodipine Besylate (Norvasc -) 5 mg PO DAILY Visit type - Emergency Visit Emergency Visit: Yes ED Registration Date: 01/05/17 Care time: The patient presented to the Emergency Department on the above date and was hospitalized for further evaluation of their emergent condition. - New Patient This patient is new to me today: No - Critical Care Critical Care patient: No
--- NOTE | 2017-01-18 16:46 | PN ---
Teaching Attending Note Name of Resident: Raghav Gonzáles (Nephrology) ATTENDING PHYSICIAN STATEMENT I saw and evaluated the patient. I reviewed the resident's note and discussed the case with the resident. I agree with the resident's findings and plan as documented. Nephrology Consult Please see consult filled out by resident. Pt is a 66 year old female who presented to the ER with anemia. She was found to have bilateral lower extremity DVT. We were called to evaluate her for hyponatermia. pmhx CVA/TIA 3 years ago, DM, HTN, HLD, anemia and constipation nkda social hx denies Laboratory Tests 01/05/17 01/06/17 01/06/17 17:32 09:48 21:40 WBC Hgb 6.0 L* D 10.3 L D 10.0 L Sodium Potassium Chloride Carbon Dioxide Anion Gap BUN Creatinine Serum Osmolality 01/07/17 01/07/17 01/07/17 05:15 15:20 21:30 WBC Hgb 6.7 L* D 13.2 D 11.8 D Sodium Potassium Chloride Carbon Dioxide Anion Gap BUN Creatinine Serum Osmolality 01/08/17 01/11/17 01/13/17 05:15 05:05 06:20 WBC Hgb 11.8 12.0 11.6 Sodium Potassium Chloride Carbon Dioxide Anion Gap BUN Creatinine Serum Osmolality 01/16/17 01/17/17 01/18/17 06:30 07:45 05:35 WBC 4.9 Hgb 12.5 11.2 Sodium 129 L Potassium Chloride Carbon Dioxide Anion Gap BUN Creatinine Serum Osmolality 01/18/17 05:35 WBC Hgb Sodium 129 L Potassium 4.5 Chloride 94 L Carbon Dioxide 26 Anion Gap 9 BUN 17 Creatinine 0.6 Serum Osmolality 258 L Current Medications Generic Name Dose Route Start Last Admin Trade Name Freq PRN Reason Stop Dose Admin Acetaminophen 650 mg 01/13/17 12:55 Tylenol - PO Q4H PRN FEVER OR PAIN Amlodipine Besylate 5 mg 01/14/17 10:00 01/18/17 09:33 Norvasc - PO 5 mg DAILY MINAL Administration Docusate Sodium 100 mg 01/13/17 22:00 01/18/17 09:33 Colace - PO 100 mg BID MINAL Administration Heparin Sodium (Porcine) 5,000 unit 01/13/17 18:02 01/14/17 11:17 Heparin - IVPUSH 5,000 unit PRN PRN Administration Heparin Heparin Sodium (Porcine) 1,000 unit 01/13/17 13:03 Heparin - IVPUSH PRN PRN Heparin Heparin Sodium (Porcine) 25, 500 mls @ 15 mls/hr 01/16/17 23:45 01/18/17 09:35 000 unit/ Sodium Chloride IV 10 ml/hr TITR MINAL Titration Protocol Insulin Aspart 1 vial 01/13/17 16:30 01/18/17 11:24 Novolog Vial Sliding Scale - SQ Not Given ACHS MINAL Protocol Magnesium Oxide 400 mg 01/13/17 22:00 01/18/17 09:33 Mag-Ox - PO 400 mg BID MINAL Administration Mirtazapine 15 mg 01/13/17 22:00 01/17/17 22:36 Remeron - PO 15 mg HS MINAL Administration Pantoprazole Sodium 40 mg 01/14/17 10:00 01/18/17 09:33 Protonix - PO 40 mg DAILY MINAL Administration Polyethylene Glycol 17 gm 01/13/17 12:55 Miralax (For Daily Use) - PO DAILY PRN CONSTIPATION Warfarin Sodium 5 mg 01/14/17 18:00 01/17/17 17:40 Coumadin - PO 5 mg DAILY@1800 MINAL Administration cardio s1s2 reg pulm decreased base sounds GI soft ext edema neuro pre existing deficit Impression 1. hyponatremia 2. CVA 3. DVT bilateral lower extremity 4. HTN 5. chol 6. anemia 7. left side hydrouretronephrosis Plan - hypo-osmolar hyponatremia - follow up urine sodium and urine osm - check cortisol and tsh - check ultrasound kindey and bladder to evaluate hydro - restrict free water to one liter for now - will comment more on etiology of hyponatermia as more data is gathered Dr Harris
[2017-01-18] MEDS: WARFARIN NA 5 MG TABLET (UD) PO SCH (17:20)
--- NOTE | 2017-01-18 18:00 | PN ---
Progress Note (short form) - Note Progress Note: Patient seen an dexamined no c/o Last Vital Signs Temp Pulse Resp BP Pulse Ox 98.3 F 67 20 128/68 97 01/18/17 14:50 01/18/17 14:50 01/18/17 14:50 01/18/17 14:50 01/18/17 11:05 Cor: RSR, No murmurs, No gallops Lungs: Clear to P&A Abd: Soft, Normal bowel sounds, No organomegaly Ext:No significant edema Abnormal Lab Results 01/18/17 01/18/17 01/18/17 00:20 05:35 05:35 RDW 18.8 H INR PTT (Actin FS) 72.5 H 88.8 H Sodium Chloride Serum Osmolality AST ALT Alkaline Phosphatase Albumin 01/18/17 01/18/17 01/18/17 05:35 09:53 14:30 RDW INR 1.60 H PTT (Actin FS) 56.9 H D Sodium 129 L Chloride 94 L Serum Osmolality 258 L AST 78 H ALT 115 H Alkaline Phosphatase 132 H Albumin 3.2 L Home Medication List Medication Instructions Recorded Confirmed Type Amlodipine Besylate 5 mg PO DAILY 09/20/15 01/05/17 History Ergocalciferol (Vitamin D2) 50,000 unit PO WEEKLY 09/20/15 01/05/17 History [Vitamin D2] Ferrous Gluconate [Fergon -] 324 mg PO TID 09/20/15 01/05/17 History Ewing-3 Fatty Acids [Ewing-3] 1,000 mg PO QID 09/20/15 01/05/17 History Ascorbic Acid [Vitamin C] 500 mg PO DAILY 01/05/17 01/05/17 History Atorvastatin Ca [Lipitor] 40 mg PO HS 01/05/17 01/05/17 History Lisinopril [Zestril] 20 mg PO DAILY 01/05/17 01/05/17 History Metformin HCl 500 mg PO BID 01/05/17 01/05/17 History Mirtazapine [Remeron -] 15 mg PO HS 01/05/17 01/05/17 History Active Medications Generic Name Dose Route Start Last Admin Trade Name Freq PRN Reason Stop Dose Admin Acetaminophen 650 mg 01/13/17 12:55 Tylenol - PO Q4H PRN FEVER OR PAIN Amlodipine Besylate 5 mg 01/14/17 10:00 01/18/17 09:33 Norvasc - PO 5 mg DAILY MINAL Administration Docusate Sodium 100 mg 01/13/17 22:00 01/18/17 09:33 Colace - PO 100 mg BID MINAL Administration Heparin Sodium (Porcine) 5,000 unit 01/13/17 18:02 01/14/17 11:17 Heparin - IVPUSH 5,000 unit PRN PRN Administration Heparin Heparin Sodium (Porcine) 1,000 unit 01/13/17 13:03 Heparin - IVPUSH PRN PRN Heparin Heparin Sodium (Porcine) 25, 500 mls @ 15 mls/hr 01/16/17 23:45 01/18/17 17:19 000 unit/ Sodium Chloride IV 10 ml/hr TITR MINAL Titration Protocol Insulin Aspart 1 vial 01/13/17 16:30 01/18/17 16:54 Novolog Vial Sliding Scale - SQ Not Given ACHS MINAL Protocol Magnesium Oxide 400 mg 01/13/17 22:00 01/18/17 09:33 Mag-Ox - PO 400 mg BID MINAL Administration Mirtazapine 15 mg 01/13/17 22:00 01/17/17 22:36 Remeron - PO 15 mg HS MINAL Administration Pantoprazole Sodium 40 mg 01/14/17 10:00 01/18/17 09:33 Protonix - PO 40 mg DAILY MINAL Administration Polyethylene Glycol 17 gm 01/13/17 12:55 Miralax (For Daily Use) - PO DAILY PRN CONSTIPATION Warfarin Sodium 5 mg 01/14/17 18:00 01/18/17 17:20 Coumadin - PO 5 mg DAILY@1800 MINAL Administration A/P 66 yo F with a past medical history significant for CVA/TIA 3 years ago, DM, HTN , HLD, anemia and constipation who presents from [facility] with bilateral pedal edema as well as anemia, 6.6 and 20 HGB and Hematocrit and a sodium of 129. found to have B/L DVT . Seems like a chronic GI bleed No active bleeding, now with normal hemoglobin EGD unrevealing may need colonoscopy CT a/p--no retroperitoneal bleed prominent left hydroureteronephrosis b/l DVT On heparin drip, titrate for PTT bridging to coumadin. would overlap therapeutic INR for 24hrs. with heparin s/p ivc filter check thrombophilia w/u Iron deficiency- IV iron 200mg x 3days low sat 7% GI ?? colonoscopy Bridging heparin to coumadin Will need GI f/u and colonoscopy to r/o occult malignancy. but given overall performance status ? goals of care CT scan showing hydroureteronephrosis /thickening of bladder wall--will need urology f/u abnormal LFTs --u/s unrevealing ? meds
[2017-01-18] MEDS: MIRTAZAPINE 15 MG TABLET (FP) PO SCH (23:33)
[2017-01-19] MEDS: INSULIN SLIDING SCALE (NOVOLOG) 1 VIAL SQ SCH ×4 (07:18→22:34)
[2017-01-19 07:25] LABS: BASOPHIL 1.2 % (0-2.0); MCH 28.2 pg (25.7-33.7); MEAN CELL VOLUME 82.9 fl (80-96); MEAN PLT VOLUME 7.8 fl (7.5-11.1); NEUTROPHILS 53.5 % (42.8-82.8); PLATELET COUNT 216 K/MM3 (134-434); RDW 18.3 % (11.6-15.6); WHITE BLOOD COUNT 4.7 K/mm3 (4.0-10.0)
[2017-01-19 08:33] LABS: ALBUMIN 3.1 g/dl (3.4-5.0); ANION GAP 8 (8-16); CALCIUM 8.8 mg/dL (8.5-10.1); CO2 26 mmol/L (21-32); GLUCOSE,RANDOM 72 mg/dL (74-106)
[2017-01-19 08:36] LABS: ALK PHOS 161 U/L (45-117); BILIRUBIN,TOTAL 0.3 mg/dL (0.2-1.0); CREATININE 0.6 mg/dL (0.55-1.02); SGOT/AST 119 U/L (15-37); SGPT/ALT 153 U/L (12-78); TOT PROT 6.3 g/dl (6.4-8.2)
[2017-01-19] MEDS: MAGNESIUM OXIDE 400 MG TABLET (FP) PO SCH ×2 (09:22→22:30)
[2017-01-19] MEDS: DOCUSATE SODIUM 100 MG CAPSULE (FP) PO SCH ×2 (09:23→22:30)
[2017-01-19] MEDS: amLODIPine BESYLATE 5 MG TABLET (FP) PO SCH (09:23)
[2017-01-19] MEDS: PANTOPRAZOLE 40 MG TABLET (FP) PO SCH (09:23)
[2017-01-19 10:19] LABS: INR 1.7 (0.82-1.09); PROTHROMBIN TIME (PATIENT) 18.9 SEC (9.98-11.88)
--- NOTE | 2017-01-19 11:56 | PN ---
Progress Note, Physician Chief Complaint: ANEMIA BLLE DVT History of Present Illness: Comfortable in bed, NAD, s/p IVC filter. -on heparin drip, bridge with Coumadin, ordered -plan d/c back to [facility] once INR reached at least 1.5, therapeutic goal for INR is between 2-3. - Current Medication List Current Medications: Active Medications Acetaminophen (Tylenol -) 650 mg PO Q4H PRN PRN Reason: FEVER OR PAIN Amlodipine Besylate (Norvasc -) 5 mg PO DAILY [facility] Last Admin: 01/19/17 09:23 Dose: 5 mg Docusate Sodium (Colace -) 100 mg PO BID [facility] Last Admin: 01/19/17 09:23 Dose: 100 mg Heparin Sodium (Porcine) (Heparin -) 5,000 unit IVPUSH PRN PRN PRN Reason: Heparin Last Admin: 01/14/17 11:17 Dose: 5,000 unit Heparin Sodium (Porcine) (Heparin -) 1,000 unit IVPUSH PRN PRN PRN Reason: Heparin Heparin Sodium (Porcine) 25, (000 unit/ Sodium Chloride) 500 mls @ 15 mls/hr IV TITR MINAL PRN Reason: Protocol Last Titration: 01/19/17 10:12 Dose: 10 ml/hr Insulin Aspart (Novolog Vial Sliding Scale -) 1 vial SQ ACHS MINAL PRN Reason: Protocol Last Admin: 01/19/17 07:18 Dose: Not Given Magnesium Oxide (Mag-Ox -) 400 mg PO BID [facility] Last Admin: 01/19/17 09:22 Dose: 400 mg Mirtazapine (Remeron -) 15 mg PO HS [facility] Last Admin: 01/18/17 23:33 Dose: 15 mg Pantoprazole Sodium (Protonix -) 40 mg PO DAILY [facility] Last Admin: 01/19/17 09:23 Dose: 40 mg Polyethylene Glycol (Miralax (For Daily Use) -) 17 gm PO DAILY PRN PRN Reason: CONSTIPATION Warfarin Sodium 5 mg/ Warfarin (Sodium 3 mg) 8 mg PO DAILY@1800 [facility] - Objective Vital Signs: Vital Signs Temperature 98.8 F 01/19/17 06:00 Pulse Rate 66 01/19/17 06:00 Respiratory Rate 20 01/19/17 06:00 Blood Pressure 120/70 01/19/17 06:00 O2 Sat by Pulse Oximetry (%) 97 01/18/17 21:00 Constitutional: Yes: Well Nourished, No Distress, Calm Cardiovascular: Yes: Regular Rate and Rhythm Respiratory: Yes: Regular Gastrointestinal: Yes: Normal Bowel Sounds Musculoskeletal: Yes: WNL Extremities: Yes: WNL Edema: Yes Peripheral Pulses WNL: Yes Neurological: Yes: Alert, Oriented Psychiatric: Yes: Alert, Oriented Labs: CBC, BMP 01/19/17 06:20 01/19/17 06:20 INR, PTT INR 1.70 (0.82-1.09) H 01/19/17 06:20 Fibrinogen 409.0 mg/dL (238-498) 01/16/17 00:20 Problem List - Problems (1) DVT (deep venous thrombosis) Assessment/Plan: -seen by hematology and vascular -S/P IVC filter placement -on heparin drip -bridging over to coumadin, INR 1.7 today, therapeutic goal between 2-3 -Warfarin 8 mg x 1 dose today, repeat INR in AM Code(s): I82.409 - ACUTE EMBOLISM AND THOMBOS UNSP DEEP VN UNSP LOWER EXTREMITY Qualifiers: DVT location: lower extremity Affected thrombotic vein of extremity: unspecified vein of extremity Chronicity: acute Laterality: bilateral Qualified Code(s): I82.403 - Acute embolism and thrombosis of unspecified deep veins of lower extremity, bilateral (2) Change in mental status Assessment/Plan: -seen by psychiatry, deemed to have mental capacity to make decisions about health care proxy and which assisted facility she would like to go to. -spoke to her Wednesday, where she is okay to go to [facility], doesn't want to go to [facility]. Wants to assign [employer], who is already her power of erisa attorney, as her Health care proxy. Code(s): R41.82 - ALTERED MENTAL STATUS, UNSPECIFIED (3) Hydroureteronephrosis Assessment/Plan: -seen by urology, -cystoscopy as outpatient once stable. Code(s): N13.30 - UNSPECIFIED HYDRONEPHROSIS (4) Hyponatremia Code(s): E87.1 - HYPO-OSMOLALITY AND HYPONATREMIA Assessment/Plan -still on heparin drip -bridging over to coumadin with therapeutic INR goal of 2-3 -repeat INR in AM -follow up with urology and GI as outpatient for cystoscopy and colonoscopy once stable -monitor hyponatremia
--- NOTE | 2017-01-19 15:49 | PN ---
Physical Exam: SUBJECTIVE: Patient seen and examined at bedside. No overnight events. No new complaints. Feels better overall. Denies CP,JAMES,palpitations, SOB, abd. pain,N/V. OBJECTIVE: Vital Signs Period Temp Pulse Resp BP Sys/Gary Pulse Ox Last 24 Hr 98 F-98.8 F 60-98 18-20 118-150/64-82 97 GENERAL: awake and alert, NAD HEAD:NC/AT EYES: PERRLA, EOMI EARS, NOSE, THROAT: Moist mucous membranes. NECK: supple no jvd LUNGS:CATB , no wheezing or rales. HEART: Irregular, no m/g/r ABDOMEN: Soft,NT, ND, BS(+) UPPER EXTREMITIES: 2+ pulses, warm, well-perfused. No cyanosis. No clubbing. LOWER EXTREMITIES: 2+ pulses, warm, well-perfused. No calf tenderness. 1+ bilateral peripheral edema. Laboratory Results - last 24 hr 01/18/17 01/18/17 01/18/17 14:30 16:54 23:42 WBC RBC Hgb Hct MCV MCH MCHC RDW Plt Count MPV Neutrophils % Lymphocytes % Monocytes % Eosinophils % Basophils % INR PTT (Actin FS) 56.9 H D Sodium Potassium Chloride Carbon Dioxide Anion Gap BUN Creatinine Creat Clearance w eGFR POC Glucometer 171 119 Random Glucose Calcium Total Bilirubin AST ALT Alkaline Phosphatase Total Protein Albumin Urine Osmolality Ur Random Sodium Ur Random Potassium Ur Random Chloride 01/19/17 01/19/17 01/19/17 06:20 06:20 06:20 WBC 4.7 RBC 3.93 Hgb 11.1 Hct 32.6 MCV 82.9 MCH 28.2 MCHC 34.0 RDW 18.3 H Plt Count 216 MPV 7.8 Neutrophils % 53.5 Lymphocytes % 34.6 Monocytes % 6.7 Eosinophils % 4.0 Basophils % 1.2 INR PTT (Actin FS) 57.8 H Sodium 127 L Potassium 4.5 Chloride 93 L Carbon Dioxide 26 Anion Gap 8 BUN 14 Creatinine 0.6 Creat Clearance w eGFR > 60 POC Glucometer Random Glucose 72 L Calcium 8.8 Total Bilirubin 0.3 D AST 119 H D ALT 153 H D Alkaline Phosphatase 161 H D Total Protein 6.3 L Albumin 3.1 L Urine Osmolality Ur Random Sodium Ur Random Potassium Ur Random Chloride 01/19/17 01/19/17 01/19/17 06:20 09:30 10:25 WBC RBC Hgb Hct MCV MCH MCHC RDW Plt Count MPV Neutrophils % Lymphocytes % Monocytes % Eosinophils % Basophils % INR 1.70 H PTT (Actin FS) Sodium Potassium Chloride Carbon Dioxide Anion Gap BUN Creatinine Creat Clearance w eGFR POC Glucometer Random Glucose Calcium Total Bilirubin AST ALT Alkaline Phosphatase Total Protein Albumin Urine Osmolality 419 D Ur Random Sodium 110 Ur Random Potassium 28.0 Ur Random Chloride 115 01/19/17 12:08 WBC RBC Hgb Hct MCV MCH MCHC RDW Plt Count MPV Neutrophils % Lymphocytes % Monocytes % Eosinophils % Basophils % INR PTT (Actin FS) Sodium Potassium Chloride Carbon Dioxide Anion Gap BUN Creatinine Creat Clearance w eGFR POC Glucometer 93 Random Glucose Calcium Total Bilirubin AST ALT Alkaline Phosphatase Total Protein Albumin Urine Osmolality Ur Random Sodium Ur Random Potassium Ur Random Chloride Active Medications Generic Name Dose Route Start Last Admin Trade Name Freq PRN Reason Stop Dose Admin Acetaminophen 650 mg 01/13/17 12:55 Tylenol - PO Q4H PRN FEVER OR PAIN Amlodipine Besylate 5 mg 01/14/17 10:00 01/19/17 09:23 Norvasc - PO 5 mg DAILY MINAL Administration Docusate Sodium 100 mg 01/13/17 22:00 01/19/17 09:23 Colace - PO 100 mg BID MINAL Administration Heparin Sodium (Porcine) 5,000 unit 01/13/17 18:02 01/14/17 11:17 Heparin - IVPUSH 5,000 unit PRN PRN Administration Heparin Heparin Sodium (Porcine) 1,000 unit 01/13/17 13:03 Heparin - IVPUSH PRN PRN Heparin Heparin Sodium (Porcine) 25, 500 mls @ 15 mls/hr 01/16/17 23:45 01/19/17 10:12 000 unit/ Sodium Chloride IV 10 ml/hr TITR MINAL Titration Protocol Insulin Aspart 1 vial 01/13/17 16:30 01/19/17 12:10 Novolog Vial Sliding Scale - SQ Not Given ACHS MINAL Protocol Magnesium Oxide 400 mg 01/13/17 22:00 01/19/17 09:22 Mag-Ox - PO 400 mg BID MINAL Administration Mirtazapine 15 mg 01/13/17 22:00 01/18/17 23:33 Remeron - PO 15 mg HS MINAL Administration Pantoprazole Sodium 40 mg 01/14/17 10:00 01/19/17 09:23 Protonix - PO 40 mg DAILY [facility] Administration Polyethylene Glycol 17 gm 01/13/17 12:55 Miralax (For Daily Use) - PO DAILY PRN CONSTIPATION Warfarin Sodium 5 mg/ Warfarin 8 mg 01/19/17 18:00 Sodium 3 mg PO DAILY@1800 [facility] Laboratory Tests 01/18/17 01/19/17 01/19/17 05:35 09:30 10:25 TSH 2.72 D Urine Osmolality 419 D Ur Random Sodium 110 Ur Random Potassium 28.0 Ur Random Chloride 115 ASSESSMENT/PLAN: 66 yo F with h/o CVA/TIA 3 years ago, DM, HTN, HLD, unintentional weight loss, anemia and constipation admitted to the ICU for acute anemia and bilateral DVT. Problem List - Problems (1) Hyponatremia Assessment/Plan: * Mills placed and has output 1.5L in 24hrs. * TSH WNL * AM cortisol pending. * repeat labs in AM (2) DVT (deep venous thrombosis) Assessment/Plan: * S/P IVC filter. * continue to bridge with Heparin and continue Coumadin * subtherapeutic INR * will be discharged to [facility] once INR therapeutic. (3) Anemia Assessment/Plan: * resolved - no active bleeding * colonoscopy as outpatient. (4) GI bleed Assessment/Plan: * colonscopy as outpatient. (5) HTN (hypertension) Assessment/Plan: * Amlodipine Besylate (Norvasc -) 5 mg PO DAILY Visit type - Emergency Visit Emergency Visit: Yes ED Registration Date: 01/05/17 Care time: The patient presented to the Emergency Department on the above date and was hospitalized for further evaluation of their emergent condition. - New Patient This patient is new to me today: No - Critical Care Critical Care patient: No - Discharge Referral Referred to [facility] Med P.C.: No
--- NOTE | 2017-01-19 16:57 | PN ---
Teaching Attending Note Name of Resident: Raghav Gonzáles (Nephrology) ATTENDING PHYSICIAN STATEMENT I saw and evaluated the patient. I reviewed the resident's note and discussed the case with the resident. I agree with the resident's findings and plan as documented. cardio s1s2 reg pulm decreased base sounds GI soft ext edema neuro pre existing deficit Impression 1. hyponatremia 2. CVA 3. DVT bilateral lower extremity 4. HTN 5. chol 6. anemia 7. left side hydrouretronephrosis Plan - urine osm is elevated in the setting of a dilute plasma osm, urine sodium is elevated. this is suggestive of an siadh picture - restrict free water - will give a salt tab - obstruction seen on ultrasound and taylor was placed, results may be altered secondary to obstruction, will repeat urine lytes and osm - restrict free water to one liter for now Dr Harris
[2017-01-19] MEDS ORDERED: WARFARIN NA 3 MG TABLET ONE (17:32)
[2017-01-19] MEDS ORDERED: WARFARIN NA 5 MG TABLET (UD) ONE (17:32)
[2017-01-19] MEDS: WARFARIN NA 5 MG, WARFARIN NA 3 MG PO SCH (17:34)
[2017-01-19] MEDS ORDERED: WARFARIN NA 2 MG TABLET (UD) PO SCH (18:00)
[2017-01-19] MEDS ORDERED: PT OWN MED DRAWER 7, Y5N ONE (18:12)
[2017-01-19] MEDS: HEPARIN - 25,000 UNIT in SODIUM CHLORIDE 495 ML IV SCH (18:28)
[2017-01-19] MEDS: MIRTAZAPINE 15 MG TABLET (FP) PO SCH (22:30)
[2017-01-20] MEDS: HEPARIN - 25,000 UNIT in SODIUM CHLORIDE 495 ML IV SCH ×2 (02:17→18:22)
[2017-01-20] MEDS: INSULIN SLIDING SCALE (NOVOLOG) 1 VIAL SQ SCH ×4 (06:25→22:43)
[2017-01-20 08:00] LABS: INR 1.95 (0.82-1.09); PROTHROMBIN TIME (PATIENT) 21.8 SEC (9.98-11.88)
[2017-01-20] MEDS: amLODIPine BESYLATE 5 MG TABLET (FP) PO SCH (10:08)
[2017-01-20] MEDS: MAGNESIUM OXIDE 400 MG TABLET (FP) PO SCH ×2 (10:08→22:43)
[2017-01-20] MEDS: DOCUSATE SODIUM 100 MG CAPSULE (FP) PO SCH ×2 (10:08→22:43)
[2017-01-20] MEDS: PANTOPRAZOLE 40 MG TABLET (FP) PO SCH (10:08)
[2017-01-20 12:34] LABS: ANION GAP 10 (8-16); CALCIUM 8.4 mg/dL (8.5-10.1); CO2 23 mmol/L (21-32); CREATININE 0.6 mg/dL (0.55-1.02); GLUCOSE,RANDOM 75 mg/dL (74-106)
--- NOTE | 2017-01-20 12:39 | PN ---
Progress Note, Physician Chief Complaint: ANEMIA BLLE DVT History of Present Illness: Comfortable in bed, NAD, s/p IVC filter. -on heparin drip, bridge with Coumadin, ordered -plan d/c back to [facility] once INR reached at least 1.5, therapeutic goal for INR is between 2-3. - Current Medication List Current Medications: Active Medications Acetaminophen (Tylenol -) 650 mg PO Q4H PRN PRN Reason: FEVER OR PAIN Amlodipine Besylate (Norvasc -) 5 mg PO DAILY [facility] Last Admin: 01/20/17 10:08 Dose: 5 mg Docusate Sodium (Colace -) 100 mg PO BID [facility] Last Admin: 01/20/17 10:08 Dose: 100 mg Heparin Sodium (Porcine) (Heparin -) 5,000 unit IVPUSH PRN PRN PRN Reason: Heparin Last Admin: 01/14/17 11:17 Dose: 5,000 unit Heparin Sodium (Porcine) (Heparin -) 1,000 unit IVPUSH PRN PRN PRN Reason: Heparin Heparin Sodium (Porcine) 25, (000 unit/ Sodium Chloride) 500 mls @ 15 mls/hr IV TITR MINAL PRN Reason: Protocol Last Titration: 01/20/17 09:42 Dose: 10 ml/hr Insulin Aspart (Novolog Vial Sliding Scale -) 1 vial SQ ACHS MINAL PRN Reason: Protocol Last Admin: 01/20/17 06:25 Dose: Not Given Magnesium Oxide (Mag-Ox -) 400 mg PO BID [facility] Last Admin: 01/20/17 10:08 Dose: 400 mg Mirtazapine (Remeron -) 15 mg PO HS [facility] Last Admin: 01/19/17 22:30 Dose: 15 mg Pantoprazole Sodium (Protonix -) 40 mg PO DAILY [facility] Last Admin: 01/20/17 10:08 Dose: 40 mg Polyethylene Glycol (Miralax (For Daily Use) -) 17 gm PO DAILY PRN PRN Reason: CONSTIPATION Warfarin Sodium 5 mg/ Warfarin (Sodium 3 mg) 8 mg PO DAILY@1800 [facility] Last Admin: 01/19/17 17:34 Dose: 8 mg - Objective Vital Signs: Vital Signs Temperature 97.8 F 01/20/17 06:00 Pulse Rate 60 01/20/17 09:00 Respiratory Rate 18 01/20/17 09:00 Blood Pressure 132/80 01/20/17 09:00 O2 Sat by Pulse Oximetry (%) 99 01/19/17 21:00 Constitutional: Yes: Well Nourished, No Distress, Calm Cardiovascular: Yes: Regular Rate and Rhythm Respiratory: Yes: Regular Gastrointestinal: Yes: Normal Bowel Sounds Edema: No Peripheral Pulses WNL: Yes Neurological: Yes: Alert, Oriented Psychiatric: Yes: Alert Labs: CBC, BMP 01/19/17 06:20 INR, PTT INR 1.95 (0.82-1.09) H 01/20/17 06:15 Fibrinogen 409.0 mg/dL (238-498) 01/16/17 00:20 Problem List - Problems (1) DVT (deep venous thrombosis) Assessment/Plan: -seen by hematology and vascular -S/P IVC filter placement -on heparin drip -bridging over to coumadin, INR 1.7 today, therapeutic goal between 2-3 -Warfarin 8 mg x 1 dose today, repeat INR in AM Code(s): I82.409 - ACUTE EMBOLISM AND THOMBOS UNSP DEEP VN UNSP LOWER EXTREMITY Qualifiers: DVT location: lower extremity Affected thrombotic vein of extremity: unspecified vein of extremity Chronicity: acute Laterality: bilateral Qualified Code(s): I82.403 - Acute embolism and thrombosis of unspecified deep veins of lower extremity, bilateral (2) Change in mental status Assessment/Plan: -seen by psychiatry, deemed to have mental capacity to make decisions about health care proxy and which intermediate facility she would like to go to. -spoke to her Wednesday, where she is okay to go to [facility], doesn't want to go to [facility]. Wants to assign [employer], who is already her power of contract attorney, as her Health care proxy. Code(s): R41.82 - ALTERED MENTAL STATUS, UNSPECIFIED (3) Hydroureteronephrosis Assessment/Plan: -seen by urology, -cystoscopy as outpatient once stable. Code(s): N13.30 - UNSPECIFIED HYDRONEPHROSIS (4) Hyponatremia Assessment/Plan: -seen by nephrology -sodium chloride tabs -taylor in place Code(s): E87.1 - HYPO-OSMOLALITY AND HYPONATREMIA Assessment/Plan -still on heparin drip -bridging over to warfarin with therapeutic INR goal of 2-3 -repeat INR in AM -follow up with urology and GI as outpatient for cystoscopy and colonoscopy once stable -seen by nephrology -sodium chloride tabs -taylor
[2017-01-20] MEDS ORDERED: PT OWN MED DRAWER 7, Y5N ONE ×2 (13:26→17:11)
[2017-01-20] MEDS ORDERED: SODIUM CHLORIDE 1 GM TABLET PO SCH (13:30)
--- NOTE | 2017-01-20 13:38 | PN ---
Physical Exam: SUBJECTIVE: Patient seen and examined at bedside. No overnight events. No new complaints. Denies CP,JAMES, SOB, abd.pain, N/V. OBJECTIVE: Vital Signs Period Temp Pulse Resp BP Sys/Gary Pulse Ox Last 24 Hr 97.6 F-98.8 F 58-68 18-20 120-139/66-80 99 GENERAL: awake and alert, NAD HEAD:NC/AT EYES: PERRLA, EOMI EARS, NOSE, THROAT: Moist mucous membranes. NECK: supple no jvd LUNGS:CATB , no wheezing or rales. HEART: Irregular, no m/g/r ABDOMEN: Soft,NT, ND, BS(+) UPPER EXTREMITIES: 2+ pulses, warm, well-perfused. No cyanosis. No clubbing. LOWER EXTREMITIES: 2+ pulses, warm, well-perfused. No calf tenderness. 1+ bilateral peripheral edema. Laboratory Results - last 24 hr 01/19/17 01/19/17 01/19/17 06:20 10:25 12:08 INR PTT (Actin FS) Sodium Potassium Chloride Carbon Dioxide Anion Gap BUN Creatinine POC Glucometer 93 Random Glucose Calcium Cortisol AM Sample 4.7 Urine Osmolality 419 D 01/19/17 01/19/17 01/20/17 17:18 22:33 06:15 INR PTT (Actin FS) 59.7 H Sodium Potassium Chloride Carbon Dioxide Anion Gap BUN Creatinine POC Glucometer 87 100 Random Glucose Calcium Cortisol AM Sample Urine Osmolality 01/20/17 01/20/17 01/20/17 06:15 06:24 11:39 INR 1.95 H PTT (Actin FS) Sodium Potassium Chloride Carbon Dioxide Anion Gap BUN Creatinine POC Glucometer 69 102 Random Glucose Calcium Cortisol AM Sample Urine Osmolality 01/20/17 11:42 INR PTT (Actin FS) Sodium 126 L Potassium 4.7 Chloride 93 L Carbon Dioxide 23 Anion Gap 10 BUN 14 Creatinine 0.6 POC Glucometer Random Glucose 75 Calcium 8.4 L Cortisol AM Sample Urine Osmolality Active Medications Generic Name Dose Route Start Last Admin Trade Name Freq PRN Reason Stop Dose Admin Acetaminophen 650 mg 01/13/17 12:55 Tylenol - PO Q4H PRN FEVER OR PAIN Amlodipine Besylate 5 mg 01/14/17 10:00 01/20/17 10:08 Norvasc - PO 5 mg DAILY MINAL Administration Docusate Sodium 100 mg 01/13/17 22:00 01/20/17 10:08 Colace - PO 100 mg BID MINAL Administration Heparin Sodium (Porcine) 5,000 unit 01/13/17 18:02 01/14/17 11:17 Heparin - IVPUSH 5,000 unit PRN PRN Administration Heparin Heparin Sodium (Porcine) 1,000 unit 01/13/17 13:03 Heparin - IVPUSH PRN PRN Heparin Heparin Sodium (Porcine) 25, 500 mls @ 15 mls/hr 01/16/17 23:45 01/20/17 09:42 000 unit/ Sodium Chloride IV 10 ml/hr TITR MINAL Titration Protocol Insulin Aspart 1 vial 01/13/17 16:30 01/20/17 12:36 Novolog Vial Sliding Scale - SQ Not Given ACHS MINAL Protocol Magnesium Oxide 400 mg 01/13/17 22:00 01/20/17 10:08 Mag-Ox - PO 400 mg BID MINAL Administration Mirtazapine 15 mg 01/13/17 22:00 01/19/17 22:30 Remeron - PO 15 mg HS MINAL Administration Pantoprazole Sodium 40 mg 01/14/17 10:00 01/20/17 10:08 Protonix - PO 40 mg DAILY MINAL Administration Polyethylene Glycol 17 gm 01/13/17 12:55 Miralax (For Daily Use) - PO DAILY PRN CONSTIPATION Sodium Chloride 1 gm 01/20/17 13:30 01/20/17 13:35 Sodium Chloride Tablet - PO 1 gm DAILY MINAL Administration Warfarin Sodium 5 mg/ Warfarin 8 mg 01/19/17 18:00 01/19/17 17:34 Sodium 3 mg PO 8 mg DAILY@1800 MINAL Administration ASSESSMENT/PLAN: 66 yo F with h/o CVA/TIA 3 years ago, DM, HTN, HLD, unintentional weight loss, anemia and constipation admitted to the ICU for acute anemia and bilateral DVT. Problem List - Problems (1) Hyponatremia Assessment/Plan: * Could possibly represent SIADH given elevated urine and dilute plasma osm, urine sodium is elevated. * restrict free water * This could represent underlying malignancy given bilateral DVT's * obstruction seen on ultrasound (2) DVT (deep venous thrombosis) Assessment/Plan: * S/P IVC filter. * continue to bridge with Heparin and continue Coumadin * subtherapeutic INR * will be discharged to [facility] once INR therapeutic. (3) Anemia Assessment/Plan: * resolved - no active bleeding * colonoscopy as outpatient. (4) GI bleed Assessment/Plan: * colonscopy as outpatient. (5) HTN (hypertension) Assessment/Plan: * Amlodipine Besylate (Norvasc -) 5 mg PO DAILY Visit type - Emergency Visit Emergency Visit: Yes ED Registration Date: 01/05/17 Care time: The patient presented to the Emergency Department on the above date and was hospitalized for further evaluation of their emergent condition. - New Patient This patient is new to me today: No - Critical Care Critical Care patient: No
--- NOTE | 2017-01-20 17:02 | PN ---
Teaching Attending Note Name of Resident: Raghav Gonzáles (Nephrology) ATTENDING PHYSICIAN STATEMENT I saw and evaluated the patient. I reviewed the resident's note and discussed the case with the resident. I agree with the resident's findings and plan as documented. Current Medications Generic Name Dose Route Start Last Admin Trade Name Freq PRN Reason Stop Dose Admin Acetaminophen 650 mg 01/13/17 12:55 Tylenol - PO Q4H PRN FEVER OR PAIN Amlodipine Besylate 5 mg 01/14/17 10:00 01/20/17 10:08 Norvasc - PO 5 mg DAILY MINAL Administration Docusate Sodium 100 mg 01/13/17 22:00 01/20/17 10:08 Colace - PO 100 mg BID MINAL Administration Heparin Sodium (Porcine) 5,000 unit 01/13/17 18:02 01/14/17 11:17 Heparin - IVPUSH 5,000 unit PRN PRN Administration Heparin Heparin Sodium (Porcine) 1,000 unit 01/13/17 13:03 Heparin - IVPUSH PRN PRN Heparin Heparin Sodium (Porcine) 25, 500 mls @ 15 mls/hr 01/16/17 23:45 01/20/17 09:42 000 unit/ Sodium Chloride IV 10 ml/hr TITR MINAL Titration Protocol Insulin Aspart 1 vial 01/13/17 16:30 01/20/17 12:36 Novolog Vial Sliding Scale - SQ Not Given ACHS MINAL Protocol Magnesium Oxide 400 mg 01/13/17 22:00 01/20/17 10:08 Mag-Ox - PO 400 mg BID MINAL Administration Mirtazapine 15 mg 01/13/17 22:00 01/19/17 22:30 Remeron - PO 15 mg HS MINAL Administration Pantoprazole Sodium 40 mg 01/14/17 10:00 01/20/17 10:08 Protonix - PO 40 mg DAILY MINAL Administration Polyethylene Glycol 17 gm 01/13/17 12:55 Miralax (For Daily Use) - PO DAILY PRN CONSTIPATION Sodium Chloride 1 gm 01/20/17 13:30 01/20/17 13:35 Sodium Chloride Tablet - PO 1 gm DAILY MINAL Administration Warfarin Sodium 5 mg/ Warfarin 8 mg 01/19/17 18:00 01/19/17 17:34 Sodium 3 mg PO 8 mg DAILY@1800 MINAL Administration cardio s1s2 reg pulm decreased base sounds GI soft ext edema neuro pre existing deficit Impression 1. hyponatremia 2. CVA 3. DVT bilateral lower extremity 4. HTN 5. chol 6. anemia 7. left side hydrouretronephrosis Plan - sodium remains low - cont free water restriction - will give a small dose of lasix to help with free water excretion as she does have edema - cont salt tab - monitor urine output Dr Harris
[2017-01-20] MEDS ORDERED: FUROSEMIDE 20 MG TABLET (FP) PO ONE (17:03)
[2017-01-20] MEDS ORDERED: WARFARIN NA 3 MG TABLET ONE (17:06)
[2017-01-20] MEDS ORDERED: WARFARIN NA 5 MG TABLET (UD) ONE (17:06)
[2017-01-20] MEDS: WARFARIN NA 5 MG, WARFARIN NA 3 MG PO SCH (17:09)
--- NOTE | 2017-01-20 19:32 | PN ---
Progress Note (short form) - Note Progress Note: Patient seen an dexamined no c/o Last Vital Signs Temp Pulse Resp BP Pulse Ox 98.6 F 63 18 144/77 99 01/20/17 14:59 01/20/17 14:59 01/20/17 14:59 01/20/17 14:59 01/19/17 21:00 Cor: RSR, No murmurs, No gallops Lungs: Clear to P&A Abd: Soft, Normal bowel sounds, No organomegaly Ext:No significant edema Abnormal Lab Results 01/20/17 01/20/17 01/20/17 06:15 06:15 11:42 INR 1.95 H PTT (Actin FS) 59.7 H Sodium 126 L Chloride 93 L Calcium 8.4 L Home Medication List Medication Instructions Recorded Confirmed Type Amlodipine Besylate 5 mg PO DAILY 09/20/15 01/05/17 History Ergocalciferol (Vitamin D2) 50,000 unit PO WEEKLY 09/20/15 01/05/17 History [Vitamin D2] Ferrous Gluconate [Fergon -] 324 mg PO TID 09/20/15 01/05/17 History Fielding-3 Fatty Acids [Fielding-3] 1,000 mg PO QID 09/20/15 01/05/17 History Ascorbic Acid [Vitamin C] 500 mg PO DAILY 01/05/17 01/05/17 History Atorvastatin Ca [Lipitor] 40 mg PO HS 01/05/17 01/05/17 History Lisinopril [Zestril] 20 mg PO DAILY 01/05/17 01/05/17 History Metformin HCl 500 mg PO BID 01/05/17 01/05/17 History Mirtazapine [Remeron -] 15 mg PO HS 01/05/17 01/05/17 History Active Medications Generic Name Dose Route Start Last Admin Trade Name Freq PRN Reason Stop Dose Admin Acetaminophen 650 mg 01/13/17 12:55 Tylenol - PO Q4H PRN FEVER OR PAIN Amlodipine Besylate 5 mg 01/14/17 10:00 01/20/17 10:08 Norvasc - PO 5 mg DAILY MINAL Administration Docusate Sodium 100 mg 01/13/17 22:00 01/20/17 10:08 Colace - PO 100 mg BID MINAL Administration Heparin Sodium (Porcine) 5,000 unit 01/13/17 18:02 01/14/17 11:17 Heparin - IVPUSH 5,000 unit PRN PRN Administration Heparin Heparin Sodium (Porcine) 1,000 unit 01/13/17 13:03 Heparin - IVPUSH PRN PRN Heparin Heparin Sodium (Porcine) 25, 500 mls @ 15 mls/hr 01/16/17 23:45 01/20/17 09:42 000 unit/ Sodium Chloride IV 10 ml/hr TITR MINAL Titration Protocol Insulin Aspart 1 vial 01/13/17 16:30 01/20/17 12:36 Novolog Vial Sliding Scale - SQ Not Given ACHS MINAL Protocol Magnesium Oxide 400 mg 01/13/17 22:00 01/20/17 10:08 Mag-Ox - PO 400 mg BID MINAL Administration Mirtazapine 15 mg 01/13/17 22:00 01/19/17 22:30 Remeron - PO 15 mg HS MINAL Administration Pantoprazole Sodium 40 mg 01/14/17 10:00 01/20/17 10:08 Protonix - PO 40 mg DAILY MINAL Administration Polyethylene Glycol 17 gm 01/13/17 12:55 Miralax (For Daily Use) - PO DAILY PRN CONSTIPATION Sodium Chloride 1 gm 01/20/17 13:30 01/20/17 13:35 Sodium Chloride Tablet - PO 1 gm DAILY MINAL Administration Warfarin Sodium 5 mg/ Warfarin 8 mg 01/19/17 18:00 01/19/17 17:34 Sodium 3 mg PO 8 mg DAILY@1800 MINAL Administration A/P 66 yo F with a past medical history significant for CVA/TIA 3 years ago, DM, HTN , HLD, anemia and constipation who presents from [facility] with bilateral pedal edema as well as anemia, 6.6 and 20 HGB and Hematocrit and a sodium of 129. found to have B/L DVT . Seems like a chronic GI bleed No active bleeding, now with normal hemoglobin EGD unrevealing may need colonoscopy CT a/p--no retroperitoneal bleed prominent left hydroureteronephrosis b/l DVT On heparin drip, titrate for PTT bridging to coumadin. would overlap therapeutic INR for 24hrs. with heparin s/p ivc filter check thrombophilia w/u Iron deficiency- IV iron 200mg x 3days low sat 7% GI ?? colonoscopy Bridging heparin to coumadin Will need GI f/u and colonoscopy to r/o occult malignancy. but given overall performance status ? goals of care CT scan showing hydroureteronephrosis /thickening of bladder wall--will need urology f/u abnormal LFTs --u/s unrevealing ? meds discussed with patients power of deputy prosecuting attorney---her poor functional status, deferring invasive w/u given her overall status. symptomatic , conservative, supportive treatment . He is in agreement.Wants to change nursing homes
[2017-01-20] MEDS ORDERED: INSULIN (NOVOLOG) ASPART 100 UNITS/ML 10ML VIAL ONE (22:13)
[2017-01-20] MEDS: SODIUM CHLORIDE 1 GM TABLET PO SCH (22:43)
[2017-01-20] MEDS: MIRTAZAPINE 15 MG TABLET (FP) PO SCH (22:43)
[2017-01-21] MEDS: INSULIN SLIDING SCALE (NOVOLOG) 1 VIAL SQ SCH ×4 (06:11→21:23)
[2017-01-21 07:03] LABS: BASOPHIL 1.6 % (0-2.0); EOSINOPHIL 3.5 % (0-4.5); MCH 28.4 pg (25.7-33.7); MCHC 34.5 g/dl (32.0-36.0); MEAN CELL VOLUME 82.1 fl (80-96); MEAN PLT VOLUME 7.8 fl (7.5-11.1); NEUTROPHILS 59.9 % (42.8-82.8); PLATELET COUNT 234 K/MM3 (134-434); RDW 18.7 % (11.6-15.6); WHITE BLOOD COUNT 4.9 K/mm3 (4.0-10.0)
[2017-01-21 07:12] LABS: ALK PHOS 168 U/L (45-117); ANION GAP 8 (8-16); BILIRUBIN,TOTAL 0.2 mg/dL (0.2-1.0); CALCIUM 8.7 mg/dL (8.5-10.1); CO2 24 mmol/L (21-32); CREATININE 0.6 mg/dL (0.55-1.02); GLUCOSE,RANDOM 80 mg/dL (74-106); SGOT/AST 81 U/L (15-37); SGPT/ALT 125 U/L (12-78); TOT PROT 6.1 g/dl (6.4-8.2)
[2017-01-21 07:19] LABS: INR 2.56 (0.82-1.09); PROTHROMBIN TIME (PATIENT) 28.7 SEC (9.98-11.88)
--- NOTE | 2017-01-21 09:55 | PN ---
Progress Note (short form) - Note Progress Note: Patient seen an dexamined no c/o Last Vital Signs Temp Pulse Resp BP Pulse Ox 98.5 F 66 20 115/61 98 01/21/17 06:04 01/21/17 06:04 01/21/17 06:04 01/21/17 06:04 01/20/17 21:00 Cor: RSR, No murmurs, No gallops Lungs: Clear to P&A Abd: Soft, Normal bowel sounds, No organomegaly Ext:No significant edema Abnormal Lab Results 01/20/17 01/21/17 01/21/17 11:42 05:45 05:45 Hct 31.2 L RDW 18.7 H INR 2.56 H D PTT (Actin FS) Sodium 126 L Chloride 93 L Calcium 8.4 L AST ALT Alkaline Phosphatase Total Protein Albumin 01/21/17 01/21/17 05:45 05:45 Hct RDW INR PTT (Actin FS) 60.1 H Sodium 125 L Chloride 93 L Calcium AST 81 H D ALT 125 H Alkaline Phosphatase 168 H Total Protein 6.1 L Albumin 3.0 L Home Medication List Medication Instructions Recorded Confirmed Type Amlodipine Besylate 5 mg PO DAILY 09/20/15 01/05/17 History Ergocalciferol (Vitamin D2) 50,000 unit PO WEEKLY 09/20/15 01/05/17 History [Vitamin D2] Ferrous Gluconate [Fergon -] 324 mg PO TID 09/20/15 01/05/17 History Josephine-3 Fatty Acids [Josephine-3] 1,000 mg PO QID 09/20/15 01/05/17 History Ascorbic Acid [Vitamin C] 500 mg PO DAILY 01/05/17 01/05/17 History Atorvastatin Ca [Lipitor] 40 mg PO HS 01/05/17 01/05/17 History Lisinopril [Zestril] 20 mg PO DAILY 01/05/17 01/05/17 History Metformin HCl 500 mg PO BID 01/05/17 01/05/17 History Mirtazapine [Remeron -] 15 mg PO HS 01/05/17 01/05/17 History Active Medications Generic Name Dose Route Start Last Admin Trade Name Freq PRN Reason Stop Dose Admin Acetaminophen 650 mg 01/13/17 12:55 Tylenol - PO Q4H PRN FEVER OR PAIN Amlodipine Besylate 5 mg 01/14/17 10:00 01/20/17 10:08 Norvasc - PO 5 mg DAILY MINAL Administration Docusate Sodium 100 mg 01/13/17 22:00 01/20/17 22:43 Colace - PO 100 mg BID MINAL Administration Insulin Aspart 1 vial 01/13/17 16:30 01/21/17 06:11 Novolog Vial Sliding Scale - SQ Not Given ACHS [facility] Protocol Magnesium Oxide 400 mg 01/13/17 22:00 01/20/17 22:43 Mag-Ox - PO 400 mg BID MINAL Administration Mirtazapine 15 mg 01/13/17 22:00 01/20/17 22:43 Remeron - PO 15 mg HS MINAL Administration Pantoprazole Sodium 40 mg 01/14/17 10:00 01/20/17 10:08 Protonix - PO 40 mg DAILY MINAL Administration Polyethylene Glycol 17 gm 01/13/17 12:55 Miralax (For Daily Use) - PO DAILY PRN CONSTIPATION Sodium Chloride 1 gm 01/20/17 22:00 01/20/17 22:43 Sodium Chloride Tablet - PO 1 gm BID MINAL Administration Warfarin Sodium 5 mg/ Warfarin 8 mg 01/19/17 18:00 01/20/17 17:09 Sodium 3 mg PO 8 mg DAILY@1800 MINAL Administration A/P 66 yo F with a past medical history significant for CVA/TIA 3 years ago, DM, HTN , HLD, anemia and constipation who presents from [facility] with bilateral pedal edema as well as anemia, 6.6 and 20 HGB and Hematocrit and a sodium of 129. found to have B/L DVT . Seems like a chronic GI bleed No active bleeding, now with normal hemoglobin EGD unrevealing may need colonoscopy CT a/p--no retroperitoneal bleed prominent left hydroureteronephrosis b/l DVT On heparin drip, titrate for PTT bridging to coumadin. would overlap therapeutic INR for 24hrs. with heparin s/p ivc filter check thrombophilia w/u Iron deficiency- IV iron 200mg x 3days low sat 7% GI ?? colonoscopy Bridging heparin to coumadin Will need GI f/u and colonoscopy to r/o occult malignancy. but given overall performance status ? goals of care CT scan showing hydroureteronephrosis /thickening of bladder wall--will need urology f/u abnormal LFTs --u/s unrevealing ? meds discussed with patients power of attorney lawyer---her poor functional status, deferring invasive w/u given her overall status. symptomatic , conservative, supportive treatment . He is in agreement.Wants to change nursing homes
[2017-01-21] MEDS: MAGNESIUM OXIDE 400 MG TABLET (FP) PO SCH ×2 (09:58→21:23)
[2017-01-21] MEDS: amLODIPine BESYLATE 5 MG TABLET (FP) PO SCH (09:58)
[2017-01-21] MEDS: PANTOPRAZOLE 40 MG TABLET (FP) PO SCH (09:58)
[2017-01-21] MEDS: DOCUSATE SODIUM 100 MG CAPSULE (FP) PO SCH ×2 (09:58→21:23)
[2017-01-21] MEDS: SODIUM CHLORIDE 1 GM TABLET PO SCH ×2 (10:02→21:24)
[2017-01-21] MEDS ORDERED: PT OWN MED DRAWER 7, Y5N ONE ×2 (10:02→20:53)
[2017-01-21 10:12] LABS: PTT-LA MIX 50.4 sec (0.0-48.9)
--- NOTE | 2017-01-21 11:03 | PN ---
Progress Note, Physician Chief Complaint: ANEMIA BLLE DVT History of Present Illness: Comfortable in bed, NAD, s/p IVC filter. -on heparin drip, bridge with Coumadin, ordered -plan d/c back to [facility] [place] once INR reached at least 1.5, therapeutic goal for INR is between 2-3. - Current Medication List Current Medications: Active Medications Acetaminophen (Tylenol -) 650 mg PO Q4H PRN PRN Reason: FEVER OR PAIN Amlodipine Besylate (Norvasc -) 5 mg PO DAILY [facility] Last Admin: 01/21/17 09:58 Dose: 5 mg Docusate Sodium (Colace -) 100 mg PO BID [facility] Last Admin: 01/21/17 09:58 Dose: 100 mg Insulin Aspart (Novolog Vial Sliding Scale -) 1 vial SQ ACHS [facility] PRN Reason: Protocol Last Admin: 01/21/17 06:11 Dose: Not Given Magnesium Oxide (Mag-Ox -) 400 mg PO BID [facility] Last Admin: 01/21/17 09:58 Dose: 400 mg Mirtazapine (Remeron -) 15 mg PO HS [facility] Last Admin: 01/20/17 22:43 Dose: 15 mg Pantoprazole Sodium (Protonix -) 40 mg PO DAILY [facility] Last Admin: 01/21/17 09:58 Dose: 40 mg Polyethylene Glycol (Miralax (For Daily Use) -) 17 gm PO DAILY PRN PRN Reason: CONSTIPATION Sodium Chloride (Sodium Chloride Tablet -) 1 gm PO BID [facility] Last Admin: 01/21/17 10:02 Dose: 1 gm Warfarin Sodium 5 mg/ Warfarin (Sodium 3 mg) 8 mg PO DAILY@1800 [facility] Last Admin: 01/20/17 17:09 Dose: 8 mg - Objective Vital Signs: Vital Signs Temperature 98.5 F 01/21/17 06:04 Pulse Rate 66 01/21/17 06:04 Respiratory Rate 20 01/21/17 06:04 Blood Pressure 115/61 01/21/17 06:04 O2 Sat by Pulse Oximetry (%) 98 01/20/17 21:00 Constitutional: Yes: Well Nourished, No Distress, Calm Cardiovascular: Yes: Regular Rate and Rhythm Respiratory: Yes: Regular Gastrointestinal: Yes: Normal Bowel Sounds Musculoskeletal: Yes: WNL Extremities: Yes: WNL Edema: Yes Edema: LLE: 1+, RLE: 1+ Peripheral Pulses WNL: Yes Neurological: Yes: Alert, Oriented (x2) Psychiatric: Yes: Alert, Oriented Labs: CBC, BMP 01/21/17 05:45 01/21/17 05:45 INR, PTT INR 2.56 (0.82-1.09) H D 01/21/17 05:45 Fibrinogen 409.0 mg/dL (238-498) 01/16/17 00:20 Problem List - Problems (1) DVT (deep venous thrombosis) Assessment/Plan: -seen by hematology and vascular -S/P IVC filter placement -INR therapeutic at 2.5 Code(s): I82.409 - ACUTE EMBOLISM AND THOMBOS UNSP DEEP VN UNSP LOWER EXTREMITY Qualifiers: DVT location: lower extremity Affected thrombotic vein of extremity: unspecified vein of extremity Chronicity: acute Laterality: bilateral Qualified Code(s): I82.403 - Acute embolism and thrombosis of unspecified deep veins of lower extremity, bilateral (2) Change in mental status Assessment/Plan: -seen by psychiatry, deemed to have mental capacity to make decisions about health care proxy and which nursing home facility she would like to go to. -spoke to her Wednesday, [facility], doesn't want to go to [facility] [place]. Wants to assign [employer] Jalen, who is already her power of senior attorney, as her Health care proxy. Code(s): R41.82 - ALTERED MENTAL STATUS, UNSPECIFIED (3) Hydroureteronephrosis Assessment/Plan: -seen by urology, -cystoscopy as outpatient once stable. Code(s): N13.30 - UNSPECIFIED HYDRONEPHROSIS (4) Hyponatremia Assessment/Plan: -seen by nephrology -sodium chloride tabs -taylor in place Code(s): E87.1 - HYPO-OSMOLALITY AND HYPONATREMIA Assessment/Plan -d/c heparin drip -INR-2.5 today -repeat INR in AM -follow up with urology and GI as outpatient for cystoscopy and colonoscopy once stable -seen by nephrology -sodium chloride tabs -taylor
--- NOTE | 2017-01-21 16:00 | PN ---
Physical Exam: SUBJECTIVE: Patient seen and examined at bedside. No overnight events. No new complaints. Feels ok. Denies CP,JAMES, palpitations, SOB, abd. pain, N/V. OBJECTIVE: Vital Signs Period Temp Pulse Resp BP Sys/Gary Pulse Ox Last 24 Hr 98.0 F-99.6 F 66-91 18-68 104-134/59-79 98 GENERAL: awake and alert, NAD HEAD:NC/AT EYES: PERRLA, EOMI EARS, NOSE, THROAT: Moist mucous membranes. NECK: supple no jvd LUNGS:CTAB,slightly diminished breath sounds at the bases, no wheezing or rales. HEART: Irregular, no m/g/r ABDOMEN: Soft,NT, ND, BS(+) UPPER EXTREMITIES: 2+ pulses, warm, well-perfused. No cyanosis. No clubbing. LOWER EXTREMITIES: 2+ pulses, warm, well-perfused. No calf tenderness. 1+ bilateral peripheral edema Laboratory Results - last 24 hr 01/18/17 01/18/17 01/20/17 12:58 12:58 17:08 WBC RBC Hgb Hct MCV MCH MCHC RDW Plt Count MPV Neutrophils % Lymphocytes % Monocytes % Eosinophils % Basophils % INR PTT (Actin FS) Lupus Anticoag PTT Mix 50.4 H LA PTT Baseline 63.1 H dRVVT Confirm Interp 31.8 Hexagonal Phospholipid 6 Factor V Leiden Factor V Leiden Comment Sodium Potassium Chloride Carbon Dioxide Anion Gap BUN Creatinine Creat Clearance w eGFR POC Glucometer 116 Random Glucose Calcium Total Bilirubin AST ALT Alkaline Phosphatase Total Protein Albumin 01/20/17 01/21/17 01/21/17 22:42 05:45 05:45 WBC 4.9 RBC 3.80 Hgb 10.8 Hct 31.2 L MCV 82.1 MCH 28.4 MCHC 34.5 RDW 18.7 H Plt Count 234 MPV 7.8 Neutrophils % 59.9 Lymphocytes % 25.7 D Monocytes % 9.3 Eosinophils % 3.5 Basophils % 1.6 INR 2.56 H D PTT (Actin FS) Lupus Anticoag PTT Mix LA PTT Baseline dRVVT Confirm Interp Hexagonal Phospholipid Factor V Leiden Factor V Leiden Comment Sodium Potassium Chloride Carbon Dioxide Anion Gap BUN Creatinine Creat Clearance w eGFR POC Glucometer 129 Random Glucose Calcium Total Bilirubin AST ALT Alkaline Phosphatase Total Protein Albumin 01/21/17 01/21/17 01/21/17 05:45 05:45 06:06 WBC RBC Hgb Hct MCV MCH MCHC RDW Plt Count MPV Neutrophils % Lymphocytes % Monocytes % Eosinophils % Basophils % INR PTT (Actin FS) 60.1 H Lupus Anticoag PTT Mix LA PTT Baseline dRVVT Confirm Interp Hexagonal Phospholipid Factor V Leiden Factor V Leiden Comment Sodium 125 L Potassium 4.7 Chloride 93 L Carbon Dioxide 24 Anion Gap 8 BUN 17 D Creatinine 0.6 Creat Clearance w eGFR > 60 POC Glucometer 89 Random Glucose 80 Calcium 8.7 Total Bilirubin 0.2 D AST 81 H D ALT 125 H Alkaline Phosphatase 168 H Total Protein 6.1 L Albumin 3.0 L 01/21/17 11:41 WBC RBC Hgb Hct MCV MCH MCHC RDW Plt Count MPV Neutrophils % Lymphocytes % Monocytes % Eosinophils % Basophils % INR PTT (Actin FS) Lupus Anticoag PTT Mix LA PTT Baseline dRVVT Confirm Interp Hexagonal Phospholipid Factor V Leiden Factor V Leiden Comment Sodium Potassium Chloride Carbon Dioxide Anion Gap BUN Creatinine Creat Clearance w eGFR POC Glucometer 115 Random Glucose Calcium Total Bilirubin AST ALT Alkaline Phosphatase Total Protein Albumin Active Medications Generic Name Dose Route Start Last Admin Trade Name Bassemq PRN Reason Stop Dose Admin Acetaminophen 650 mg 01/13/17 12:55 Tylenol - PO Q4H PRN FEVER OR PAIN Amlodipine Besylate 5 mg 01/14/17 10:00 01/21/17 09:58 Norvasc - PO 5 mg DAILY [facility]AL Administration Docusate Sodium 100 mg 01/13/17 22:00 01/21/17 09:58 Colace - PO 100 mg BID MINAL Administration Insulin Aspart 1 vial 01/13/17 16:30 01/21/17 11:51 Novolog Vial Sliding Scale - SQ Not Given ACHS [facility] Protocol Magnesium Oxide 400 mg 01/13/17 22:00 01/21/17 09:58 Mag-Ox - PO 400 mg BID MINAL Administration Mirtazapine 15 mg 01/13/17 22:00 01/20/17 22:43 Remeron - PO 15 mg HS MINAL Administration Pantoprazole Sodium 40 mg 01/14/17 10:00 01/21/17 09:58 Protonix - PO 40 mg DAILY [facility]AL Administration Polyethylene Glycol 17 gm 01/13/17 12:55 Miralax (For Daily Use) - PO DAILY PRN CONSTIPATION Sodium Chloride 1 gm 01/20/17 22:00 01/21/17 10:02 Sodium Chloride Tablet - PO 1 gm BID [facility] Administration Warfarin Sodium 5 mg 01/22/17 18:00 Coumadin - PO SuMoWeFr [facility] Warfarin Sodium 5 mg/ Warfarin 8 mg 01/21/17 18:00 Sodium 3 mg PO [facility] ASSESSMENT/PLAN: 66 yo F with h/o CVA/TIA 3 years ago, DM, HTN, HLD, unintentional weight loss, anemia and constipation admitted to the ICU for acute anemia and bilateral DVT Problem List - Problems (1) Hyponatremia Assessment/Plan: * sodium remains low will continue to restrict fluids and continue with salt tablets. * Could possibly represent SIADH given elevated urine and dilute plasma osm, urine sodium is elevated. * restrict free water * This could represent underlying malignancy given bilateral DVT's * obstruction seen on ultrasound (2) DVT (deep venous thrombosis) Assessment/Plan: * S/P IVC filter. * continue to bridge with Heparin and continue Coumadin * subtherapeutic INR * will be discharged to [facility] once INR therapeutic. (3) Anemia Assessment/Plan: * resolved - no active bleeding * colonoscopy as outpatient. (4) GI bleed (5) HTN (hypertension) Visit type - Emergency Visit Emergency Visit: Yes ED Registration Date: 01/05/17 Care time: The patient presented to the Emergency Department on the above date and was hospitalized for further evaluation of their emergent condition. - New Patient This patient is new to me today: No - Critical Care Critical Care patient: No - Discharge Referral Referred to [facility] Med P.C.: No
[2017-01-21] MEDS ORDERED: WARFARIN NA 5 MG TABLET (UD) ONE (16:53)
[2017-01-21] MEDS ORDERED: WARFARIN NA 3 MG TABLET ONE (16:54)
--- NOTE | 2017-01-21 17:34 | PN ---
Teaching Attending Note Name of Resident: Raghav Gonzáles (Nephrology) ATTENDING PHYSICIAN STATEMENT I saw and evaluated the patient. I reviewed the resident's note and discussed the case with the resident. I agree with the resident's findings and plan as documented. Current Medications Generic Name Dose Route Start Last Admin Trade Name Freq PRN Reason Stop Dose Admin Acetaminophen 650 mg 01/13/17 12:55 Tylenol - PO Q4H PRN FEVER OR PAIN Amlodipine Besylate 5 mg 01/14/17 10:00 01/21/17 09:58 Norvasc - PO 5 mg DAILY MINAL Administration Docusate Sodium 100 mg 01/13/17 22:00 01/21/17 09:58 Colace - PO 100 mg BID MINAL Administration Insulin Aspart 1 vial 01/13/17 16:30 01/21/17 17:09 Novolog Vial Sliding Scale - SQ Not Given ACHS MINAL Protocol Magnesium Oxide 400 mg 01/13/17 22:00 01/21/17 09:58 Mag-Ox - PO 400 mg BID MINAL Administration Mirtazapine 15 mg 01/13/17 22:00 01/20/17 22:43 Remeron - PO 15 mg HS MINAL Administration Pantoprazole Sodium 40 mg 01/14/17 10:00 01/21/17 09:58 Protonix - PO 40 mg DAILY MINAL Administration Polyethylene Glycol 17 gm 01/13/17 12:55 Miralax (For Daily Use) - PO DAILY PRN CONSTIPATION Sodium Chloride 1 gm 01/20/17 22:00 01/21/17 10:02 Sodium Chloride Tablet - PO 1 gm BID MINAL Administration Warfarin Sodium 5 mg 01/22/17 18:00 Coumadin - PO SuMoWeFrSa MINAL Warfarin Sodium 5 mg/ Warfarin 8 mg 01/21/17 18:00 01/21/17 17:10 Sodium 3 mg PO 8 mg TuTh MINAL Administration cardio s1s2 reg pulm decreased base sounds GI soft ext edema neuro pre existing deficit Impression 1. hyponatremia 2. CVA 3. DVT bilateral lower extremity 4. HTN 5. chol 6. anemia 7. left side hydrouretronephrosis Plan - fluid restriction - cont salt tabs - repeat labs in am - will repeat osms as well - monitor urine output
[2017-01-21] MEDS ORDERED: WARFARIN NA 5 MG, WARFARIN NA 3 MG PO SCH (18:00)
[2017-01-21] MEDS: MIRTAZAPINE 15 MG TABLET (FP) PO SCH (21:24)
[2017-01-22] MEDS: INSULIN SLIDING SCALE (NOVOLOG) 1 VIAL SQ SCH ×3 (06:38→16:22)
[2017-01-22 06:59] LABS: BASOPHIL 1.5 % (0-2.0); EOSINOPHIL 3.6 % (0-4.5); MCH 28.9 pg (25.7-33.7); MCHC 35.2 g/dl (32.0-36.0); MEAN CELL VOLUME 82.1 fl (80-96); MEAN PLT VOLUME 7.8 fl (7.5-11.1); NEUTROPHILS 58.5 % (42.8-82.8); PLATELET COUNT 229 K/MM3 (134-434); WHITE BLOOD COUNT 4.5 K/mm3 (4.0-10.0)
[2017-01-22 07:24] LABS: INR 2.8 (0.82-1.09); PROTHROMBIN TIME (PATIENT) 31.5 SEC (9.98-11.88)
[2017-01-22 07:26] LABS: ANION GAP 8 (8-16); CALCIUM 8.8 mg/dL (8.5-10.1); CO2 25 mmol/L (21-32); GLUCOSE,RANDOM 75 mg/dL (74-106)
[2017-01-22 07:29] LABS: ALK PHOS 161 U/L (45-117); BILIRUBIN,TOTAL 0.5 mg/dL (0.2-1.0); CREATININE 0.6 mg/dL (0.55-1.02); SGOT/AST 68 U/L (15-37); SGPT/ALT 114 U/L (12-78); TOT PROT 6.1 g/dl (6.4-8.2)
[2017-01-22] MEDS: SODIUM CHLORIDE 1 GM TABLET PO SCH (10:39)
[2017-01-22] MEDS: amLODIPine BESYLATE 5 MG TABLET (FP) PO SCH (10:39)
[2017-01-22] MEDS: PANTOPRAZOLE 40 MG TABLET (FP) PO SCH (10:39)
[2017-01-22] MEDS: MAGNESIUM OXIDE 400 MG TABLET (FP) PO SCH (10:39)
[2017-01-22] MEDS: DOCUSATE SODIUM 100 MG CAPSULE (FP) PO SCH (10:39)
[2017-01-22 14:37] VITALS: BP 135/75; PULSE 66; TEMP 97.8
--- NOTE | 2017-01-22 15:20 | PN ---
Progress Note (short form) - Note Progress Note: RENAL Pt seen and examined while in bed She is awake and alert has no specific complaints. No nausea or vomiting Last Vital Signs Temp Pulse Resp BP Pulse Ox 97.8 F 66 17 135/75 97 01/22/17 14:31 01/22/17 14:31 01/22/17 14:31 01/22/17 14:31 01/22/17 08:27 heent somewhat dry oral mucosa lungs decreased breath sounds at right base cvs s1s2 rr abd soft ext bilat edema neuro a+o CBC, BMP 01/22/17 05:40 01/22/17 05:40 Current Medications Generic Name Dose Route Start Last Admin Trade Name Freq PRN Reason Stop Dose Admin Acetaminophen 650 mg 01/13/17 12:55 Tylenol - PO Q4H PRN FEVER OR PAIN Amlodipine Besylate 5 mg 01/14/17 10:00 01/22/17 10:39 Norvasc - PO 5 mg DAILY MINAL Administration Docusate Sodium 100 mg 01/13/17 22:00 01/22/17 10:39 Colace - PO 100 mg BID MINAL Administration Insulin Aspart 1 vial 01/13/17 16:30 01/22/17 12:05 Novolog Vial Sliding Scale - SQ Not Given ACHS MINAL Protocol Magnesium Oxide 400 mg 01/13/17 22:00 01/22/17 10:39 Mag-Ox - PO 400 mg BID MINAL Administration Mirtazapine 15 mg 01/13/17 22:00 01/21/17 21:24 Remeron - PO 15 mg HS MINAL Administration Pantoprazole Sodium 40 mg 01/14/17 10:00 01/22/17 10:39 Protonix - PO 40 mg DAILY MINAL Administration Polyethylene Glycol 17 gm 01/13/17 12:55 Miralax (For Daily Use) - PO DAILY PRN CONSTIPATION Sodium Chloride 1 gm 01/20/17 22:00 01/22/17 10:39 Sodium Chloride Tablet - PO 1 gm BID MINAL Administration Warfarin Sodium 5 mg 01/22/17 18:00 Coumadin - PO SuMoWeFrSa MINAL Warfarin Sodium 5 mg/ Warfarin 8 mg 01/21/17 18:00 01/21/17 17:10 Sodium 3 mg PO 8 mg TuTh MINAL Administration Impression 1. hyponatremia with very high urine sodium s/o SIADH or sodium wasting 2. CVA 3. DVT bilateral lower extremity 4. HTN 5. chol 6. anemia 7. left side hydrouretronephrosis Plan - fluid restriction - cont salt tabs - will repeat osms as well - no objection to dc to halfway with follow up and fluid restriction. Can increase salt tabs to TID and give protein supplements ( this will help with sodium) MV
--- NOTE | 2017-01-22 16:01 | DS ---
Physical Examination Vital Signs: Vital Signs Temperature 97.8 F 01/22/17 14:31 Pulse Rate 66 01/22/17 14:31 Respiratory Rate 17 01/22/17 14:31 Blood Pressure 135/75 01/22/17 14:31 O2 Sat by Pulse Oximetry (%) 97 01/22/17 08:27 Constitutional: Yes: Well Nourished, No Distress, Calm Cardiovascular: Yes: Regular Rate and Rhythm Respiratory: Yes: Regular Gastrointestinal: Yes: Normal Bowel Sounds Musculoskeletal: Yes: Muscle Weakness Extremities: Yes: WNL Edema: Yes Edema: LLE: 1+, RLE: 1+ Peripheral Pulses WNL: Yes Neurological: Yes: Alert, Oriented (x 2) Labs: CBC, BMP 01/22/17 05:40 01/22/17 05:40 Discharge Summary Reason For Visit: ANEMIA, NON CARDIAC TELEMETRY Current Active Problems Anemia (Acute) Bradycardia (Acute) Change in mental status (Acute) DVT (deep venous thrombosis) (Acute) Elevated liver enzymes (Acute) GI bleed (Acute) Gait abnormality (Acute) HTN (hypertension) (Acute) Hematuria (Acute) Hydroureteronephrosis (Acute) Hyponatremia (Acute) Hypothermia (Acute) Hypothermia due to non-environmental cause (Acute) Sepsis (Acute) Hospital Course: 66 yo F with a past medical history significant for CVA/TIA 3 years ago, DM, HTN , HLD, anemia and constipation who presents from [facility] with bilateral pedal edema as well as anemia, 6.6 and 20 HGB and Hematocrit and a sodium of 129. She was found to have B/L DVT . Seemed josué a chronic GI bleed No active bleeding, now with normal hemoglobin EGD unrevealing may need colonoscopy, FOLLOW UP WITH GASTROENTEROLOGY CT a/p--no retroperitoneal bleed prominent left hydroureteronephrosis, FOLLOW UP WITH UROLOGY s/p ivc filter Now on Coumadin, continue current dose, INR is 2.8, therapeutic goal between 2-3 IV iron 200mg x 3days Nephrology instructions: - fluid restriction - cont salt tabs - will repeat urine osms - follow up with nephrology and fluid restriction. Can increase salt tabs to TID and give protein supplements (this will help with sodium). Condition: Stable - Instructions Diet, Activity, Other Instructions: Diabetic diet Coumadin 8 mg T,Th, 5 mg all other days Follow up with Urology, gastroenterology and Nephrology Disposition: [facility] - Home Medications Comprehensive Discharge Medication List: Ambulatory Orders Amlodipine Besylate 5 mg PO DAILY 09/20/15 Ergocalciferol (Vitamin D2) [Vitamin D2] 50,000 unit PO WEEKLY 09/20/15 Ferrous Gluconate [Fergon -] 324 mg PO TID 09/20/15 Quincy-3 Fatty Acids [Quincy-3] 1,000 mg PO QID 09/20/15 Docusate Sodium [Colace -] 100 mg PO BID #60 capsule 09/22/15 Polyethylene Glycol 3350 [Miralax (For Daily Use) -] 17 gm PO DAILY PRN #1 bottle 09/22/15 Ascorbic Acid [Vitamin C] 500 mg PO DAILY 01/05/17 Atorvastatin Ca [Lipitor] 40 mg PO HS 01/05/17 Lisinopril [Zestril] 20 mg PO DAILY 01/05/17 Metformin HCl 500 mg PO BID 01/05/17 Mirtazapine [Remeron -] 15 mg PO HS 01/05/17
--- NOTE | 2017-01-22 16:09 | PN ---
Progress Note (short form) - Note Progress Note: Patient seen and examined no c/o. [employer] and her HCP were visiting her this afternoon. Last Vital Signs Temp Pulse Resp BP Pulse Ox 98.5 F 66 20 115/61 98 01/21/17 06:04 01/21/17 06:04 01/21/17 06:04 01/21/17 06:04 01/20/17 21:00 Cor: RSR, No murmurs, No gallops Lungs: Clear to P&A Abd: Soft, Normal bowel sounds, No organomegaly Ext:No significant edema Abnormal Lab Results 01/22/17 01/22/17 01/22/17 05:40 05:40 05:40 Hct 30.3 L RDW 19.0 H INR 2.80 H Sodium 126 L Chloride 93 L BUN 20 H AST 68 H ALT 114 H Alkaline Phosphatase 161 H Total Protein 6.1 L Albumin 3.0 L INR, PTT INR 2.80 (0.82-1.09) H 01/22/17 05:40 Fibrinogen 409.0 mg/dL (238-498) 01/16/17 00:20 Current Medications Generic Name Dose Route Start Last Admin Trade Name Freq PRN Reason Stop Dose Admin Acetaminophen 650 mg 01/13/17 12:55 Tylenol - PO Q4H PRN FEVER OR PAIN Amlodipine Besylate 5 mg 01/14/17 10:00 01/22/17 10:39 Norvasc - PO 5 mg DAILY MINAL Administration Docusate Sodium 100 mg 01/13/17 22:00 01/22/17 10:39 Colace - PO 100 mg BID MINAL Administration Insulin Aspart 1 vial 01/13/17 16:30 01/22/17 12:05 Novolog Vial Sliding Scale - SQ Not Given ACHS MINAL Protocol Magnesium Oxide 400 mg 01/13/17 22:00 01/22/17 10:39 Mag-Ox - PO 400 mg BID MINAL Administration Mirtazapine 15 mg 01/13/17 22:00 01/21/17 21:24 Remeron - PO 15 mg HS MINAL Administration Pantoprazole Sodium 40 mg 01/14/17 10:00 01/22/17 10:39 Protonix - PO 40 mg DAILY MINAL Administration Polyethylene Glycol 17 gm 01/13/17 12:55 Miralax (For Daily Use) - PO DAILY PRN CONSTIPATION Sodium Chloride 1 gm 01/20/17 22:00 01/22/17 10:39 Sodium Chloride Tablet - PO 1 gm BID MINAL Administration Warfarin Sodium 5 mg 01/22/17 18:00 Coumadin - PO SuMoWeFrSa MINAL Warfarin Sodium 5 mg/ Warfarin 8 mg 01/21/17 18:00 01/21/17 17:10 Sodium 3 mg PO 8 mg TuTh MINAL Administration A/P 66 yo F with a past medical history significant for CVA/TIA 3 years ago, DM, HTN , HLD, anemia and constipation who presents from [facility] with bilateral pedal edema as well as anemia, 6.6 and 20 HGB and Hematocrit and a sodium of 129. found to have B/L DVT . Seems like a chronic GI bleed No active bleeding, now with normal hemoglobin EGD unrevealing may need colonoscopy CT a/p--no retroperitoneal bleed prominent left hydroureteronephrosis b/l DVT Now on Coumadin, continue current dose, INR is 2.8 s/p ivc filter Iron deficiency- IV iron 200mg x 3days low sat 7% GI ?? colonoscopy, but pt w/ poor PS,?Goals of care Abnormal LFTs: Unknown etiology? US report reviewed ?medication induced discussed with power of city attorney, about the her poor functional status, deferring invasive w/u given her overall status. d/c Planning
[2017-01-22] MEDS ORDERED: WARFARIN NA 5 MG TABLET (UD) PO SCH (18:00)
[2017-01-26 12:05] LABS: B2-GLYCOPROTEIN IGA <10 SAU (.); B2-GLYCOPROTEIN IGG <10 SGU (.); B2-GLYCOPROTEIN IGM <10 SMU (.)
== END 2017-01-22 17:26 | DRG 253 ==
LOC: JER 16:27 → JERBED 18:58 → J4S 21:12 → JICU 01-06 14:40 → J5S 01-13 04:36
PROVIDERS: ADMIT Family Medicine; ATTEND Family Medicine
PROC: 30233N1 Transfusion of Nonautologous Red Blood Cells into Peripheral Vein, Percutaneous Approach (ICD-10-PCS; 2017-01-05)
PROC: 0DJ08ZZ Inspection of Upper Intestinal Tract, Via Natural or Artificial Opening Endoscopic (ICD-10-PCS; 2017-01-07)
PROC: 06H03DZ Insertion of Intraluminal Device into Inferior Vena Cava, Percutaneous Approach (ICD-10-PCS; principal; 2017-01-13 10:30)
DX: I82.4Z3 Acute embolism and thrombosis of unspecified deep veins of distal lower extremity, bilateral (principal); K92.2 Gastrointestinal hemorrhage, unspecified; N13.30 Unspecified hydronephrosis; E87.1 Hypo-osmolality and hyponatremia; D62 Acute posthemorrhagic anemia; E78.5 Hyperlipidemia, unspecified; E11.9 Type 2 diabetes mellitus without complications; Z86.73 Personal history of transient ischemic attack (TIA), and cerebral infarction without residual deficits; D50.9 Iron deficiency anemia, unspecified; R00.1 Bradycardia, unspecified; R41.82 Altered mental status, unspecified; R26.9 Unspecified abnormalities of gait and mobility; R31.9 Hematuria, unspecified; I10 Essential (primary) hypertension; E87.5 Hyperkalemia; R33.9 Retention of urine, unspecified
CPT/HCPCS: 36415; 36430; 70450-TC; 70551-TC; 71010-TC; 74176-TC; 76000-TC; 76705-TC; 76775-TC; 76856-TC; 80048; 80053; 81003; 81015; 81240; 81241; 82272; 82436; 82533; 82550; 82570; 82607; 82728; 82947; 83010; 83540; 83550; 83605; 83615; 83735; 83930; 83935; 84100; 84133; 84300; 84443; 84484; 84540; 85025; 85027; 85044; 85384; 85597; 85610; 85613; 85730; 85732; 86146; 86147; 86850; 86880; 86900; 86901; 86922; 87040; 87086; 87186; 90670; 93005; 93010; 93306-TC; 93970-TC; 94760; 97161-GP; 99283-25; J1644; J1756; P9058